=== PATIENT | male | born 1950 | race Caucasian/White ===

== ENCOUNTER 2019-02-03 17:25 | Observation (INO) | payer MEDICARE, BC ==
[2019-02-03] MEDS ORDERED: Sodium Chloride 0.9% 10 ML Syringe FLUSH PRN (17:31)
[2019-02-03] MEDS ORDERED: EPINEPHrine 1:10,000 1 MG/10 ML Syringe IVPUSH PRN (17:56)
[2019-02-03] MEDS ORDERED: Nitroglycerin 0.4 MG Tab.SL SL PRN (17:56)
[2019-02-03] MEDS ORDERED: Lidocaine 2% 100 MG/5 ML Syringe IVPUSH PRN (17:56)
[2019-02-03] MEDS ORDERED: Atropine 0.1 MG/ML 10 ML Syringe IVPUSH PRN (17:56)
[2019-02-03] MEDS ORDERED: Sodium Chloride 0.45% 1,000 ML IV ONE (18:00)
[2019-02-03] MEDS ORDERED: Sodium Chloride 0.45% 1,000 ML IV SCH (19:30)
[2019-02-03] MEDS ORDERED: metFORMIN 500 MG Tab PO SCH (20:00)
[2019-02-03] MEDS ORDERED: Ondansetron 4 MG/2 ML SDV IVPUSH PRN (20:11)
[2019-02-03] MEDS ORDERED: Ibuprofen 400 MG Tab PO PRN (20:12)
[2019-02-03] MEDS: Fluticasone Propionate Nasal Spray 16 GM Bottle NASBOTH SCH (20:49)
[2019-02-04 08:18] LABS: CHLORIDE,CL 94 mmol/L (98-115); SODIUM,NA 132 mmol/L (136-145)
[2019-02-04] MEDS ORDERED: Iopamidol 755 Mg/ML 75 ML Bottle IVPUSH ONE (09:09)
[2019-02-04] MEDS ORDERED: Sodium Chloride 0.9% 50 ML IV SCH (09:15)
--- NOTE | 2019-02-04 10:10 | CT ---
[id number] CT/CT Abdomen W IV EXAM: ABDOMEN CT WITH CONTRAST INDICATION: ELEVATED LIVER FUNCTION TESTS. COMPARISON: February 22, 2016. DISCUSSION: A 19 mm enhancing slightly exophytic mass is suggested in the upper pole the left kidney. This is somewhat difficult to differentiate from the adjacent normal parenchyma, however, and abdomen MRI with and without contrast is suggested to evaluate for renal cell carcinoma. The liver is normal in appearance, but there are mildly prominent vessels in the upper abdomen and mild splenomegaly at 14.7 cm suggesting potential underlying portal hypertension. Cholelithiasis without CT evidence of acute cholecystitis. On the right there is a 58 mm partially exophytic right renal cyst. There are couple of other small scattered bilateral renal cysts. Atherosclerotic plaque is seen in the aorta and its major branches. Small hiatus hernia and a small fat-containing umbilical hernia. Degenerative changes in the spine. The osseous structures are otherwise unremarkable. IMPRESSION: 1. The liver is normal in appearance, but there is evidence of potential portal hypertension with upper abdominal collateral vessels and mild splenomegaly. 2. Cholelithiasis without CT evidence of acute cholecystitis. 3. Possible 19 mm solid upper pole left renal mass. Abdomen MRI with and without contrast is suggested for further evaluation. Enmanuel Montenegro MD 02/04/19 1009 Thank you for allowing us to participate in the care of your patient.
[2019-02-04] MEDS: Losartan 50 MG Tab PO SCH (10:11)
[2019-02-04] MEDS: Allopurinol 100 MG Tab PO SCH (10:12)
[2019-02-04] MEDS: amLODIPine 5 MG Tab PO SCH (10:12)
[2019-02-04] MEDS: Fluticasone Propionate Nasal Spray 16 GM Bottle NASBOTH SCH ×2 (10:12→22:25)
--- NOTE | 2019-02-04 10:36 | PCM.HP ---
H&P History of Present Illness - General Date of Service: 02/04/19 Admit Problem/Dx: Admission Diagnosis/Problem Admission Diagnosis/Problem Tachycardia Source of Information: Patient, Old Records - Related Data Allergies/Adverse Reactions: Allergies Allergy/AdvReac Type Severity Reaction Status Date / Time No Known Allergies Allergy Verified 02/03/19 17:38 Home Medications: Home Meds Allopurinol [Zyloprim] 100 mg PO DAILY 02/03/19 [History] Fluticasone Propionate [Flonase] 1 spray NS BID 02/03/19 [History] Losartan [Cozaar] 100 mg PO DAILY 02/03/19 [History] Montelukast [Singulair] 10 mg PO BEDTIME 02/03/19 [History] Omeprazole Magnesium [Prilosec Otc] 20 mg PO DAILY 02/03/19 [History] Rosuvastatin Calcium [Crestor] 40 mg PO DAILY 02/03/19 [History] SitaGLIPtin [Januvia] 50 mg PO DAILY 02/03/19 [History] amLODIPine [Norvasc] 5 mg PO DAILY 02/03/19 [History] metFORMIN HCl [Glucophage] 1,000 mg PO BID 02/03/19 [History] hydroCHLOROthiazide [Hydrochlorothiazide] 25 mg PO DAILY 02/04/19 [History] Past Medical History Cardiovascular History: Reports: High Cholesterol, Hypertension Respiratory History: Reports: Asthma Gastrointestinal History: Reports: GERD Endocrine/Metabolic History: Reports: Diabetes, Type II Hematologic History: Reports: Other (See Below) Other Hematologic History: current Vt D deficient Oncologic (Cancer) History: Reports: Leukemia, Other (See Below) Other Oncologic History: Chronic Lymphatic Leukemia - Past Surgical History Musculoskeletal Surgical History: Reports: Knee Replacement Other Musculoskeletal Surgeries/Procedures:: R Social & Family History - Tobacco Use Smoking Status *Q: Former Smoker Used Tobacco, but Quit: Yes Month/Year Tobacco Last Used: 1994 - Caffeine Use Caffeine Use: Reports: Coffee H&P Review of Systems - Review of Systems: Review Of Systems: See Below General: Denies: Fever, Night Sweats, Diaphoresis HEENT: Reports: No Symptoms Pulmonary: Reports: No Symptoms Cardiovascular: Reports: No Symptoms Gastrointestinal: Reports: Diarrhea, Nausea. Denies: Abdominal Pain, Bloody Stool, Difficulty Swallowing Genitourinary: Reports: No Symptoms Musculoskeletal: Reports: No Symptoms Skin: Denies: Rash Psychiatric: Reports: No Symptoms Neurological: Reports: No Symptoms Hematologic/Lymphatic: Reports: Other Immunologic: Reports: No Symptoms Exam - Exam Exam: See Below - Vital Signs Vital Signs: Last Vital Signs Temp 98.3 F 02/04/19 06:24 Pulse 81 02/04/19 06:24 Resp 18 02/04/19 06:24 BP 137/82 02/04/19 10:12 Pulse Ox 93 L 02/04/19 06:24 Weight: 217 lb 11.2 oz - Exam Quality Assessment: No: Supplemental Oxygen, DVT Prophylaxis General: Alert, Oriented, Cooperative. No: Mild Distress HEENT: Hearing Intact, Pupils Reactive, Other (Dry mucous membranes) Neck: Supple, Trachea Midline, 2 Lungs: Clear to Auscultation, Normal Respiratory Effort Cardiovascular: Regular Rate, Regular Rhythm GI/Abdominal Exam: Normal Bowel Sounds, Soft, No Distention. No: Mass, Hepatomegaly (Male) Exam: No: Inguinal Lymphadenopathy Rectal (Males) Exam: Deferred Back Exam: No: CVA Tenderness (L), CVA Tenderness (R) Extremities: No Pedal Edema Peripheral Pulses: 2+: Radial (R), Femoral (L) Skin: Dry Neurological: Cranial Nerves Intact, Reflexes Equal Bilateral Neuro Extensive - Mental Status: Alert, Oriented x3, Normal Mood/Affect, Normal Cognition Neuro Extensive - Motor, Sensory, Reflexes: CN II-XII Intact, Normal Gait, Normal Reflexes Psychiatric: Alert, Normal Affect, Normal Mood - Patient Data Lab Results Last 24 hrs: Laboratory Results - last 24 hr 02/03/19 02/04/19 02/04/19 Range/Units 17:48 07:22 07:22 WBC 30.07 H* (5.00-10.00) 10^3/uL RBC 5.01 (4.50-6.00) 10^6/uL Hgb 14.3 (13.0-17.0) g/dL Hct 41.9 (40.0-52.0) % MCV 83.6 (82.0-92.0) fL MCH 28.5 (27.0-31.0) pg MCHC 34.1 (32.0-36.0) g/dL RDW 16.4 H (11.5-14.5) % Plt Count 113 L (150-400) 10^3/uL MPV 9.9 (7.4-10.4) fL Add Manual Diff Yes Neutrophils % (Manual) 29 L (50-70) % Lymphocytes % (Manual) 64 H (20-40) % Monocytes % (Manual) 7 (2-8) % Absolute Neutrophils 8.7203 Lymphocytes # (Manual) 19.2448 Monocytes # (Manual) 2.1049 Smudge Cells Moderate WBC Morphology Comment See note Sodium 132 L (136-145) mmol/L Potassium 3.7 (3.3-5.3) mmol/L Chloride 94 L (98-115) mmol/L Carbon Dioxide 31.7 (21.0-32.0) mmol/L Anion Gap 10.0 (5-15) mmol/L BUN 15 (6-25) mg/dL Creatinine 0.92 (0.51-1.17) mg/dL Est Cr Clr Drug Dosing 86.69 mL/min Estimated GFR (MDRD) > 60 mL/min Glucose 205 H (75 - 99) mg/dL Calcium 9.0 (8.7-10.3) mg/dL Total Bilirubin (0.2-1.0) mg/dL Direct Bilirubin (0.0-0.2) mg/dL Indirect Bilirubin mg/dL AST (15-37) U/L ALT (12-78) U/L Alkaline Phosphatase (46-116) IU/L Troponin I 0.05 0.05 (0.00-0.070) ng/mL Total Protein (6.4-8.2) g/dL Albumin (3.00-4.80) g/dL Globulin Albumin/Globulin Ratio 02/04/ Range/Units 07:22 WBC (5.00-10.00) 10^3/uL RBC (4.50-6.00) 10^6/uL Hgb (13.0-17.0) g/dL Hct (40.0-52.0) % MCV (82.0-92.0) fL MCH (27.0-31.0) pg MCHC (32.0-36.0) g/dL RDW (11.5-14.5) % Plt Count (150-400) 10^3/uL MPV (7.4-10.4) fL Add Manual Diff Neutrophils % (Manual) (50-70) % Lymphocytes % (Manual) (20-40) % Monocytes % (Manual) (2-8) % Absolute Neutrophils Lymphocytes # (Manual) Monocytes # (Manual) Smudge Cells WBC Morphology Comment Sodium (136-145) mmol/L Potassium (3.3-5.3) mmol/L Chloride (98-115) mmol/L Carbon Dioxide (21.0-32.0) mmol/L Anion Gap (5-15) mmol/L BUN (6-25) mg/dL Creatinine (0.51-1.17) mg/dL Est Cr Clr Drug Dosing mL/min Estimated GFR (MDRD) mL/min Glucose (75 - 99) mg/dL Calcium (8.7-10.3) mg/dL Total Bilirubin 1.6 H (0.2-1.0) mg/dL Direct Bilirubin 0.5 H (0.0-0.2) mg/dL Indirect Bilirubin 1.1 mg/dL AST 137 H (15-37) U/L ALT 325 H (12-78) U/L Alkaline Phosphatase 221 H (46-116) IU/L Troponin I (0.00-0.070) ng/mL Total Protein 6.5 (6.4-8.2) g/dL Albumin 2.96 L (3.00-4.80) g/dL Globulin 3.54 Albumin/Globulin Ratio 0.83 Result Diagrams: 02/04/19 07:22 02/05/19 07:10 Problem List Initiated/Reviewed/Updated: Yes Orders Last 24hrs: Active Orders 24 hr Category Date Time Status Patient Status [ADT] Routine ADT 02/03/19 17:31 Active Blood Glucose Check, Bedside [RC] BIDMEALS Care 02/03/19 17:54 Active Cardiac Monitoring [RC] 0300,0700,1100,1500,1900,2300 Care 02/03/19 17:34 Active EKG Documentation Completion [RC] ASDIRECTED Care 02/04/19 07:00 Active Intake and Output [RC] 1400,2200,0600 Care 02/03/19 17:34 Active Oxygen Therapy [RC] PRN Care 02/03/19 17:31 Active Up ad Azra [RC] ASDIRECTED Care 02/03/19 17:31 Active VTE/DVT Education [RC] PER UNIT ROUTINE Care 02/03/19 17:54 Active Vital Signs [RC] 0300,0700,1100,1500,1900,2300 Care 02/03/19 17:54 Active [employer] Diet [DIET] Diet 02/03/19 Dinner Active NPO After Midnight [Nothing per Oral After Midnight Diet 02/04/19 Breakfast Active Diet] [DIET] HEPATITIS PANEL (4) [REF] Routine Lab 02/04/19 07:22 Received Allopurinol [Zyloprim] Med 02/04/19 09:00 Active 100 mg PO DAILY Atropine [Atropine 0.1 MG/ML] Med 02/03/19 17:56 Active See Dose Instructions IVPUSH ASDIRECTED PRN EPINEPHrine [EPINEPHrine 1:10,000] Med 02/03/19 17:56 Active 1 mg IVPUSH ASDIRECTED PRN Fluticasone Propionate [Flonase] Med 02/03/19 21:00 Active 0 gm NASBOTH BID Ibuprofen [Motrin] Med 02/03/19 20:12 Active 400 mg PO Q8H PRN Lidocaine 2% [Xylocaine 2%] Med 02/03/19 17:56 Active See Dose Instructions IVPUSH ASDIRECTED PRN Losartan [Cozaar] Med 02/04/19 09:00 Active 100 mg PO DAILY Nitroglycerin [Nitrostat] Med 02/03/19 17:56 Active 0.4 mg SL ASDIRECTED PRN Ondansetron [Zofran] Med 02/03/19 20:11 Active 4 mg IVPUSH Q8H PRN Sodium Chloride 0.45% 1,000 ml Med 02/03/19 19:30 Active IV ASDIRECTED Sodium Chloride 0.9% [Normal Saline] 50 ml Med 02/04/19 09:15 Active IV ASDIRECTED Sodium Chloride 0.9% [Saline Flush] Med 02/03/19 17:31 Active 10 ml FLUSH Q8HR PRN amLODIPine [Norvasc] Med 02/04/19 09:00 Active 5 mg PO DAILY metFORMIN [Glucophage] Med 02/03/19 20:00 Hold 1,000 mg PO BIDMEALS Saline Lock Insert [OM.PC] Routine Oth 02/03/19 17:31 Ordered Resuscitation Status Routine Resus Stat 02/03/19 17:31 Ordered EKG 12 Lead [EK] AM Ther 02/04/19 05:11 Ordered Medication Orders Allopurinol (Zyloprim) 100 mg PO DAILY [facility] Last Admin: 02/04/19 10:12 Dose: 100 mg Amlodipine Besylate (Norvasc) 5 mg PO DAILY [facility] Last Admin: 02/04/19 10:12 Dose: 5 mg Atropine Sulfate (Atropine 0.1 Mg/Ml) 0 mg IVPUSH ASDIRECTED PRN PRN Reason: Heart. Epinephrine HCl (Epinephrine 1:10,000) 1 mg IVPUSH ASDIRECTED PRN PRN Reason: Heart. Fluticasone Propionate (Flonase) 0 gm NASBOTH BID [facility] Last Admin: 02/04/19 10:12 Dose: Not Given Admin: 02/03/19 20:49 Dose: Not Given Sodium Chloride (Sodium Chloride 0.45%) 1,000 mls @ 50 mls/hr IV ASDIRECTED [facility] Stop: 02/04/19 15:29 Sodium Chloride (Normal Saline) 50 mls @ 200 mls/min IV ASDIRECTED [facility] Ibuprofen (Motrin) 400 mg PO Q8H PRN PRN Reason: Pain Last Admin: 02/03/19 20:46 Dose: 400 mg Lidocaine HCl (Xylocaine 2%) 0 mg IVPUSH ASDIRECTED PRN PRN Reason: Heart. Losartan Potassium (Cozaar) 100 mg PO DAILY [facility] Last Admin: 02/04/19 10:11 Dose: 100 mg Metformin HCl (Glucophage) 1,000 mg PO BIDMEALS [facility] Last Admin: 02/03/19 20:45 Dose: Nitroglycerin (Nitrostat) 0.4 mg SL ASDIRECTED PRN PRN Reason: Heart. Ondansetron HCl (Zofran) 4 mg IVPUSH Q8H PRN PRN Reason: Nausea/Vomiting Last Admin: 02/03/19 20:46 Dose: 4 mg Sodium Chloride (Saline Flush) 10 ml FLUSH Q8HR PRN PRN Reason: keep vein open Assessment/Plan Comment:: history of present illness 68-year-old gentleman was admitted outpatient [facility] by Dr. Tobar due to dehydration and elevated liver enzymes. Patient states he has been in the heat and outside working however does admit to severe heart burn the past Wed after taking his vit d tab, took some OTC med then vomited--which seemed to help but lingered, slept quite a bit, fatigue. His liver indices were high at clinic. Does not drink water due to gagging him. Some trace urine. primary hospital problems Dehydration, Elevated transaminase Question Renal mass Rising PSA levels, Chronic stable problems CLL with progressive lymphocytosis dx 2016 HLD T2DM HTN Obesity Restrictive lung dz Peripheral polyneuropathy Osteoarthritis bilateral knees Plan today: --Hydration IV, inpatient status, repeat liver enzymes including indirect bili. --MRI next week to assess renal mass, suggest MAC 2/2 severe claustopobia. --Remove tele status
[2019-02-04] MEDS: Sodium Chloride 0.9% 1,000 ML IV SCH ×2 (14:18→22:30)
[2019-02-04] MEDS: Montelukast 10 MG Tab PO SCH (22:26)
[2019-02-05] MEDS: Sodium Chloride 0.9% 1,000 ML IV SCH ×3 (06:38→23:52)
[2019-02-05 08:14] LABS: CHLORIDE,CL 98 mmol/L (98-115); SODIUM,NA 133 mmol/L (136-145)
[2019-02-05] MEDS: Allopurinol 100 MG Tab PO SCH (08:24)
[2019-02-05] MEDS: Omeprazole 20 MG Cap.CR PO SCH (08:24)
[2019-02-05] MEDS: amLODIPine 5 MG Tab PO SCH (08:24)
[2019-02-05] MEDS: Fluticasone Propionate Nasal Spray 16 GM Bottle NASBOTH SCH ×2 (08:25→20:16)
[2019-02-05] MEDS: Losartan 50 MG Tab PO SCH (08:25)
[2019-02-05] MEDS ORDERED: Rosuvastatin 10 MG Tab PO SCH (09:00)
--- NOTE | 2019-02-05 13:46 | PCM.PN ---
- General Info Date of Service: 02/05/19 Admission Dx/Problem (Free Text): Admission Diagnosis/Problem Admission Diagnosis/Problem Elevated hepatic function, dehydration Functional Status: Reports: Tolerating Diet, Ambulating - Review of Systems General: Reports: Fatigue. Denies: Fever, Weakness, Chills HEENT: Reports: No Symptoms Pulmonary: Denies: Shortness of Breath, Cough, Sputum, Wheezing Cardiovascular: Denies: Chest Pain, Palpitations, Dyspnea on Exertion, Orthopnea , Edema, Lightheadedness Gastrointestinal: Reports: No Symptoms, Abdominal Pain Genitourinary: Reports: No Symptoms Musculoskeletal: Reports: No Symptoms Skin: Reports: No Symptoms Neurological: Reports: No Symptoms Psychiatric: Reports: No Symptoms Systems Review Comment:: CLL - Patient Data Vitals - Most Recent: Last Vital Signs Temp 97.0 F 02/05/19 11:00 Pulse 71 02/05/19 11:00 Resp 18 02/05/19 11:00 BP 133/82 02/05/19 11:00 Pulse Ox 94 L 02/05/19 11:00 Weight - Most Recent: 217 lb 11.2 oz I&O - Last 24 Hours: Intake & Output 02/04/19 02/05/19 02/05/19 22:59 06:59 14:59 Intake Total 1397 979 Output Total 825 400 Balance 572 579 Lab Results Last 24 Hours: Laboratory Results - last 24 hr 02/04/19 02/05/19 02/05/19 Range/Units 17:52 06:30 07:10 Sodium 133 L (136-145) mmol/L Potassium 3.4 (3.3-5.3) mmol/L Chloride 98 (98-115) mmol/L Carbon Dioxide 30.4 (21.0-32.0) mmol/L Anion Gap 8.0 (5-15) mmol/L BUN 16 (6-25) mg/dL Creatinine 0.88 (0.51-1.17) mg/dL Est Cr Clr Drug Dosing 90.63 mL/min Estimated GFR (MDRD) > 60 mL/min Glucose 225 H (75 - 99) mg/dL POC Glucose 264 H 221 H (74-106) mg/dl Calcium 8.5 L (8.7-10.3) mg/dL Total Bilirubin 1.0 (0.2-1.0) mg/dL AST 73 H (15-37) U/L ALT 236 H (12-78) U/L Alkaline Phosphatase 226 H (46-116) IU/L Total Protein 5.9 L (6.4-8.2) g/dL Albumin 2.66 L (3.00-4.80) g/dL Med Orders - Current: Current Medications Allopurinol (Zyloprim) 100 mg PO DAILY [facility] Last Admin: 02/05/19 08:24 Dose: 100 mg Amlodipine Besylate (Norvasc) 5 mg PO DAILY [facility] Last Admin: 02/05/19 08:24 Dose: 5 mg Atropine Sulfate (Atropine 0.1 Mg/Ml) 0 mg IVPUSH ASDIRECTED PRN PRN Reason: Heart. Epinephrine HCl (Epinephrine 1:10,000) 1 mg IVPUSH ASDIRECTED PRN PRN Reason: Heart. Fluticasone Propionate (Flonase) 0 gm NASBOTH BID [facility] Last Admin: 02/05/19 08:25 Dose: Not Given Sodium Chloride (Normal Saline) 50 mls @ 200 mls/min IV ASDIRECTED [facility] Sodium Chloride (Normal Saline) 1,000 mls @ 125 mls/hr IV ASDIRECTED [facility] Last Admin: 02/05/19 06:38 Dose: 125 mls/hr Ibuprofen (Motrin) 400 mg PO Q8H PRN PRN Reason: Pain Last Admin: 02/03/19 20:46 Dose: 400 mg Lidocaine HCl (Xylocaine 2%) 0 mg IVPUSH ASDIRECTED PRN PRN Reason: Heart. Losartan Potassium (Cozaar) 100 mg PO DAILY [facility] Last Admin: 02/05/19 08:25 Dose: 100 mg Metformin HCl (Glucophage) 1,000 mg PO BIDMEALS [facility] Last Admin: 02/03/19 20:45 Dose: Not Given Montelukast Sodium (Singulair) 10 mg PO BEDTIME [facility] Last Admin: 02/04/19 22:26 Dose: Not Given Nitroglycerin (Nitrostat) 0.4 mg SL ASDIRECTED PRN PRN Reason: Heart. Omeprazole (Omeprazole) 20 mg PO DAILY [facility] Last Admin: 02/05/19 08:24 Dose: 20 mg Ondansetron HCl (Zofran) 4 mg IVPUSH Q8H PRN PRN Reason: Nausea/Vomiting Last Admin: 02/03/19 20:46 Dose: 4 mg Rosuvastatin Calcium (Crestor) 40 mg PO DAILY [facility] Last Admin: 02/05/19 13:45 Dose: Not Given Sitagliptin Phosphate (Januvia) 50 mg PO DAILY [facility] Last Admin: 02/05/19 08:24 Dose: 50 mg Sodium Chloride (Saline Flush) 10 ml FLUSH Q8HR PRN PRN Reason: keep vein open Discontinued Medications Sodium Chloride (Sodium Chloride 0.45%) 1,000 mls @ 50 mls/hr IV ASDIRECTED ONE Stop: 02/04/19 13:59 Last Admin: 02/03/19 18:30 Dose: 50 mls/hr Sodium Chloride (Sodium Chloride 0.45%) 1,000 mls @ 50 mls/hr IV ASDIRECTED [facility] Stop: 02/04/19 15:29 Iopamidol (Isovue-370 (76%)) 75 ml IVPUSH ONETIME ONE Stop: 02/04/19 09:10 Last Admin: 02/05/19 04:36 Dose: Not Given - Exam Quality Assessment: DVT Prophylaxis. No: Supplemental Oxygen General: Alert, Oriented Neck: Supple. No: No JVD Lungs: Clear to Auscultation, Normal Respiratory Effort Cardiovascular: Regular Rate, Regular Rhythm GI/Abdominal Exam: Normal Bowel Sounds, Soft, Non-Tender, No Organomegaly, No Distention Back Exam: Normal Inspection Extremities: Normal Inspection Skin: Warm, Dry, Intact Neurological: No New Focal Deficit Psy/Mental Status: Alert, Normal Affect, Normal Mood - Problem List Review Problem List Initiated/Reviewed/Updated: Yes - My Orders Last 24 Hours: My Active Orders 02/06/19 05:11 BASIC METABOLIC PANEL,BMP [CHEM] AM CBC WITH AUTO DIFF [HEME] AM HEPATIC FUNCTION PANEL,HFP [CHEM] AM - Plan Plan:: history of present illness 68-year-old gentleman was admitted outpatient [facility] by Dr. Tobar on 02/03 due to dehydration and weakness. Patient states he has been in the heat and outside working. He states that on Thursday he did note severe heartburn after taking his vitamin D tablet. He took OTC medication for heartburn which did help. He denies any other recent illness or associated symptoms. He does report decreased water intake at home as he gags on water. He has no concerns with other fluid intake including flavored water. Initial work-up done revealed elevated liver enzymes. Patient denies regular alcohol use. Denies hepatotoxic medication use. Pertinent work-up: AST-294 AST-408 Alkaline phosphatase-[address] of the abdomen pelvis was done showing normal appearing liver, with evidence of potential protal HTN with uper abdominal collateral vessels and mild splenomegaly. Cholelithiasis without evidence of acute cholecystitis. Possible 19mm solid upper pole left renal mass. recommendation for MRI with and without contrast for further evaluation. primary hospital problems #Dehydration- Improving with IV rehydration. Encourage increase PO intake. #Elevated transaminase- ALT>AST elevation. Hepatitis panel pending. GGT done and pending. Liver tests have overall improved today. AST-71 (normal), ALT-236, Total bilirubin 1.0 (normal), Alk phosphatase increased slightly to 226. Recheck BMP and Hepatic panel tomorrow. #Question Renal mass- as noted on CT. recommendation for follow-up imaging. #Rising PSA levels- has follow-up with urology scheduled for thursday02/08/19. Chronic stable problems #CLL with progressive lymphocytosis since 2014. He is followed by oncology (Dr. Chavis) #HLD- On Crestor. Currently on hold due to elevated hepatic function #T2DM- Monitor BS. Metformin on hold 48 post contrast. Resume Sitagliptin. #HTN- on Losartan 100mg, HCTZ 25mg, and Amlodipine 5mg. #Gout- on allopurinol. #Vitamin D deficiency- on supplemental Vitamin D. #Obesity #Restrictive lung dz- Albuterol PRN #Peripheral polyneuropathy #Osteoarthritis bilateral knees #FEN- Continue with IV hydration. Improving appetite. ADA diet with BS checks. Encourage increased PO fluid intake. #Disposition- up ambulating in the halls today. continue inpatient status today. Consider discharge tomorrow with follow-up for lab monitoring. Patient will need upper endoscopy on an outpatient basis. Also will need MRI with plan for open MRI given severe claustrophobia.
[2019-02-05] MEDS: Montelukast 10 MG Tab PO SCH (20:16)
[2019-02-06] MEDS ORDERED: Iopamidol 755 Mg/ML 75 ML Bottle IVPUSH ONE (03:19)
[2019-02-06 08:38] LABS: ANION GAP 9.3 mmol/L (5-15); CHLORIDE,CL 101 mmol/L (98-115); SODIUM,NA 137 mmol/L (136-145)
[2019-02-06] MEDS: Losartan 50 MG Tab PO SCH (10:51)
[2019-02-06] MEDS: amLODIPine 5 MG Tab PO SCH (10:52)
[2019-02-06] MEDS: Allopurinol 100 MG Tab PO SCH (10:52)
[2019-02-06] MEDS: Omeprazole 20 MG Cap.CR PO SCH (10:53)
[2019-02-06] MEDS: Fluticasone Propionate Nasal Spray 16 GM Bottle NASBOTH SCH (10:54)
--- NOTE | 2019-02-06 14:16 | PCM.DCSUM1 ---
Discharge Summary - Hospital Course HPI Initial Comments: history of present illness 68-year-old gentleman was admitted outpatient [facility] by Dr. Tobar on 02/03 due to dehydration and weakness. Patient states he has been in the heat and outside working. He states that on Thursday he did note severe heartburn after taking his vitamin D tablet. He took OTC medication for heartburn which did help. However he continued to not significant weakness. He denies any other recent illness or associated symptoms. He does report decreased water intake at home as he gags on water. He has no concerns with other fluid intake including flavored water. Initial work-up done revealed elevated liver enzymes. Patient denies regular alcohol use. Denies hepatotoxic medication use. Pertinent work-up: AST-294 AST-408 Alkaline phosphatase-[address] of the abdomen pelvis was done showing normal appearing liver, with evidence of potential protal HTN with uper abdominal collateral vessels and mild splenomegaly. Cholelithiasis without evidence of acute cholecystitis. Possible 19mm solid upper pole left renal mass. recommendation for MRI with and without contrast for further evaluation. Hospitalization Course: Overall uneventful. Patient received IV rehydration therapy and did well in this regard. He was asymptomatic and denied any symptoms of abdominal pain, nausea, vomiting, or diarrhea. weakness improved and patient remained normotensive. Hepatitis panel was negative. GGTP level is still pending. Patient denies alcohol use. Denies hepatotoxic medication use. Liver function tests trended down during stay. There was a mild increase in alkaline phosphotase level primary hospital problems #Dehydration- Improved with IV rehydration #Elevated transaminase- Hepatitis panel negative GGTP done and pending. Liver tests have overall improved today. AST-56 (normal), ALT-190, Bilirubin levels normal, Alk phosphatase increased slightly to 257. #Question Renal mass- as noted on CT. recommendation for follow-up imaging. #Rising PSA levels- has follow-up with urology scheduled for Thursday02/08/19. Chronic stable problems #CLL with progressive lymphocytosis since 2014. He is followed by oncology (Dr. Chavis) #HLD- On Crestor. Currently on hold due to elevated hepatic function #T2DM- Monitor BS. Metformin on hold 48 post contrast. Resume Sitagliptin. #HTN- on Losartan 100mg, HCTZ 25mg, and Amlodipine 5mg. #Gout- on allopurinol. #Vitamin D deficiency- on supplemental Vitamin D. #Obesity #Restrictive lung dz- Albuterol PRN #Peripheral polyneuropathy #Osteoarthritis bilateral knees #Disposition- Continued down trending of hepatic enzymes. Mild increase in alkaline phosphatase. -Will discharge patient to home with close outpatient follow-up for laboratory monitoring. No alcohol use. Continue to Hold Crestor. Avoid Tylenol. -Outpatient MRI for follow-up of renal mass -Outpatient upper endoscopy. - Discharge Data Discharge Date: 02/06/19 Discharge Disposition: Home, Self-Care 01 Condition: Good - Discharge Diagnosis/Problem(s) (1) Elevated liver enzymes SNOMED Code(s): 951837122 ICD Code: R74.8 - ABNORMAL LEVELS OF OTHER SERUM ENZYMES Status: Acute (2) Renal mass SNOMED Code(s): 913691395 ICD Code: N28.89 - OTHER SPECIFIED DISORDERS OF KIDNEY AND URETER Status: Acute (3) Hepatitis SNOMED Code(s): 804484330 ICD Code: K75.9 - INFLAMMATORY LIVER DISEASE, UNSPECIFIED Status: Acute (4) Dehydration SNOMED Code(s): 93587080 ICD Code: E86.0 - DEHYDRATION Status: Acute - Patient Instructions Diet: Usual Diet as Tolerated, No Alcoholic Beverages Activity: As Tolerated Driving: May Drive Today Showering/Bathing: May Shower Notify Provider of: Fever, Increased Pain, Nausea and/or Vomiting - Discharge Plan *PRESCRIPTION DRUG MONITORING PROGRAM REVIEWED*: Not Applicable *COPY OF PRESCRIPTION DRUG MONITORING REPORT IN PATIENT PORSHA: Not Applicable Home Medications: Home Meds Fluticasone Propionate [Flonase] 1 spray NS BID 02/03/19 [History] Losartan [Cozaar] 100 mg PO DAILY 02/03/19 [History] Montelukast [Singulair] 10 mg PO BEDTIME 02/03/19 [History] Omeprazole Magnesium [Prilosec Otc] 20 mg PO DAILY 02/03/19 [History] SitaGLIPtin [Januvia] 50 mg PO DAILY 02/03/19 [History] amLODIPine [Norvasc] 5 mg PO DAILY 02/03/19 [History] metFORMIN HCl [Glucophage] 1,000 mg PO BID 02/03/19 [History] hydroCHLOROthiazide [Hydrochlorothiazide] 25 mg PO DAILY 02/04/19 [History] Fluticasone Propionate [Flonase] 0 gm NASBOTH BID bottle 02/06/19 [Rx] Oxygen Therapy Mode: Room Air Referrals: Prabhu Lord MD [Physician] - (Call clinic Thursday to schedule follow-up with Dr. Paula Lord. ) - Discharge Summary/Plan Comment DC Time >30 min.: Yes - General Info Date of Service: 02/06/19 - Patient Data Vitals - Most Recent: Last Vital Signs Temp 98.1 F 02/06/19 06:58 Pulse 78 02/06/19 06:58 Resp 16 02/06/19 06:58 BP 136/85 02/06/19 10:52 Pulse Ox 95 02/06/19 06:58 Weight - Most Recent: 217 lb 11.2 oz I&O - Last 24 hours: Intake & Output 02/05/19 02/06/19 02/06/19 22:59 06:59 14:59 Intake Total 1911 1050 Output Total 700 800 Balance 1211 250 Lab Results - Last 24 hrs: Laboratory Results - last 24 hr 02/04/19 02/05/19 02/06/19 Range/Units 07:22 17:57 07:05 WBC 24.62 H (5.00-10.00) 10^3/uL RBC 4.50 (4.50-6.00) 10^6/uL Hgb 12.6 L D (13.0-17.0) g/dL Hct 38.5 L (40.0-52.0) % MCV 85.6 (82.0-92.0) fL MCH 28.0 (27.0-31.0) pg MCHC 32.7 (32.0-36.0) g/dL RDW 16.3 H (11.5-14.5) % Plt Count 145 L (150-400) 10^3/uL MPV 10.7 H (7.4-10.4) fL Add Manual Diff Yes Neutrophils % (Manual) 26 L (50-70) % Band Neutrophils % 2 L (4-12) % Lymphocytes % (Manual) 66 H (20-40) % Monocytes % (Manual) 4 (2-8) % Eosinophils % (Manual) 2 (1-3) % Absolute Neutrophils 6.40 Band Neutrophils # 0.49 Lymphocytes # (Manual) 16.25 Monocytes # (Manual) 0.98 Eosinophils # (Manual) 0.49 Smudge Cells Moderate Sodium (136-145) mmol/L Potassium (3.3-5.3) mmol/L Chloride (98-115) mmol/L Carbon Dioxide (21.0-32.0) mmol/L Anion Gap (5-15) mmol/L BUN (6-25) mg/dL Creatinine (0.51-1.17) mg/dL Est Cr Clr Drug Dosing mL/min Estimated GFR (MDRD) mL/min Glucose (75 - 99) mg/dL POC Glucose 242 H (74-106) mg/dl Calcium (8.7-10.3) mg/dL Total Bilirubin (0.2-1.0) mg/dL Direct Bilirubin (0.0-0.2) mg/dL Indirect Bilirubin mg/dL AST (15-37) U/L ALT (12-78) U/L Alkaline Phosphatase (46-116) IU/L Total Protein (6.4-8.2) g/dL Albumin (3.00-4.80) g/dL Globulin Albumin/Globulin Ratio Hepatitis A IgM Ab Negative (Negative) Hep Bs Antigen Negative (Negative) Hep B Core IgM Ab Negative (Negative) Hepatitis C Antibody <0.1 (0.0-0.9) s/co ratio 02/06/19 02/06/19 Range/Units 07:05 07:37 WBC (5.00-10.00) 10^3/uL RBC (4.50-6.00) 10^6/uL Hgb (13.0-17.0) g/dL Hct (40.0-52.0) % MCV (82.0-92.0) fL MCH (27.0-31.0) pg MCHC (32.0-36.0) g/dL RDW (11.5-14.5) % Plt Count (150-400) 10^3/uL MPV (7.4-10.4) fL Add Manual Diff Neutrophils % (Manual) (50-70) % Band Neutrophils % (4-12) % Lymphocytes % (Manual) (20-40) % Monocytes % (Manual) (2-8) % Eosinophils % (Manual) (1-3) % Absolute Neutrophils Band Neutrophils # Lymphocytes # (Manual) Monocytes # (Manual) Eosinophils # (Manual) Smudge Cells Sodium 137 (136-145) mmol/L Potassium 3.8 (3.3-5.3) mmol/L Chloride 101 (98-115) mmol/L Carbon Dioxide 30.5 (21.0-32.0) mmol/L Anion Gap 9.3 (5-15) mmol/L BUN 14 (6-25) mg/dL Creatinine 0.90 (0.51-1.17) mg/dL Est Cr Clr Drug Dosing 88.62 mL/min Estimated GFR (MDRD) > 60 mL/min Glucose 216 H (75 - 99) mg/dL POC Glucose 233 H (74-106) mg/dl Calcium 8.7 (8.7-10.3) mg/dL Total Bilirubin 0.8 (0.2-1.0) mg/dL Direct Bilirubin 0.2 (0.0-0.2) mg/dL Indirect Bilirubin 0.6 mg/dL AST 56 H (15-37) U/L ALT 190 H (12-78) U/L Alkaline Phosphatase 257 H (46-116) IU/L Total Protein 5.8 L (6.4-8.2) g/dL Albumin 2.63 L (3.00-4.80) g/dL Globulin 3.17 Albumin/Globulin Ratio 0.82 Hepatitis A IgM Ab (Negative) Hep Bs Antigen (Negative) Hep B Core IgM Ab (Negative) Hepatitis C Antibody (0.0-0.9) s/co ratio Med Orders - Current: Current Medications Allopurinol (Zyloprim) 100 mg PO DAILY REPLACED BY [facility] Last Admin: 02/06/19 10:52 Dose: 100 mg Amlodipine Besylate (Norvasc) 5 mg PO DAILY REPLACED BY [facility] Last Admin: 02/06/19 10:52 Dose: 5 mg Atropine Sulfate (Atropine 0.1 Mg/Ml) 0 mg IVPUSH ASDIRECTED PRN PRN Reason: Heart. Epinephrine HCl (Epinephrine 1:10,000) 1 mg IVPUSH ASDIRECTED PRN PRN Reason: Heart. Fluticasone Propionate (Flonase) 0 gm NASBOTH BID REPLACED BY [facility] Last Admin: 02/06/19 10:54 Dose: Not Given Sodium Chloride (Normal Saline) 50 mls @ 200 mls/min IV ASDIRECTED REPLACED BY [facility] Last Admin: 02/06/19 03:18 Dose: 200 mls/min Sodium Chloride (Normal Saline) 1,000 mls @ 125 mls/hr IV ASDIRECTED REPLACED BY [facility] Last Admin: 02/05/19 23:52 Dose: 125 mls/hr Ibuprofen (Motrin) 400 mg PO Q8H PRN PRN Reason: Pain Last Admin: 02/03/19 20:46 Dose: 400 mg Lidocaine HCl (Xylocaine 2%) 0 mg IVPUSH ASDIRECTED PRN PRN Reason: Heart. Losartan Potassium (Cozaar) 100 mg PO DAILY REPLACED BY [facility] Last Admin: 02/06/19 10:51 Dose: 100 mg Metformin HCl (Glucophage) 1,000 mg PO BIDMEALS REPLACED BY [facility] Montelukast Sodium (Singulair) 10 mg PO BEDTIME REPLACED BY [facility] Last Admin: 02/05/19 20:16 Dose: 10 mg Nitroglycerin (Nitrostat) 0.4 mg SL ASDIRECTED PRN PRN Reason: Heart. Omeprazole (Omeprazole) 20 mg PO DAILY REPLACED BY [facility] Last Admin: 02/06/19 10:53 Dose: 20 mg Ondansetron HCl (Zofran) 4 mg IVPUSH Q8H PRN PRN Reason: Nausea/Vomiting Last Admin: 02/03/19 20:46 Dose: 4 mg Rosuvastatin Calcium (Crestor) 40 mg PO DAILY REPLACED BY [facility] Last Admin: 02/05/19 13:45 Dose: Not Given Sitagliptin Phosphate (Januvia) 50 mg PO DAILY REPLACED BY [facility] Last Admin: 02/06/19 10:52 Dose: 50 mg Sodium Chloride (Saline Flush) 10 ml FLUSH Q8HR PRN PRN Reason: keep vein open Discontinued Medications Sodium Chloride (Sodium Chloride 0.45%) 1,000 mls @ 50 mls/hr IV ASDIRECTED ONE Stop: 02/04/19 13:59 Last Admin: 02/03/19 18:30 Dose: 50 mls/hr Sodium Chloride (Sodium Chloride 0.45%) 1,000 mls @ 50 mls/hr IV ASDIRECTED REPLACED BY [facility] Stop: 02/04/19 15:29 Iopamidol (Isovue-370 (76%)) 75 ml IVPUSH ONETIME ONE Stop: 02/04/19 09:10 Last Admin: 02/05/19 04:36 Dose: Not Given Iopamidol (Isovue-370 (76%)) 75 ml IVPUSH ONETIME ONE Stop: 02/06/19 03:20 Metformin HCl (Glucophage) 1,000 mg PO BIDMEALS REPLACED BY [facility] Last Admin: 02/03/19 20:45 Dose: Not Given
[2019-02-06] MEDS ORDERED: metFORMIN 500 MG Tab PO SCH (18:00)
== END 2019-02-06 14:00 | disposition home or self-care (01) ==
LOC: KA.MS 17:25 → INTOOBSV 17:25 → UNDOADMOB 17:25 → KA.MS 17:31
PROVIDERS: ADMIT Internal Medicine; ATTEND Internal Medicine
DX: R74.8 Abnormal levels of other serum enzymes (principal); E86.0 Dehydration; R97.20 Elevated prostate specific antigen [PSA]; R53.1 Weakness; I10 Essential (primary) hypertension; E11.42 Type 2 diabetes mellitus with diabetic polyneuropathy; E78.00 Pure hypercholesterolemia, unspecified; E79.0 Hyperuricemia without signs of inflammatory arthritis and tophaceous disease; C91.10 Chronic lymphocytic leukemia of B-cell type not having achieved remission; J98.4 Other disorders of lung; K80.20 Calculus of gallbladder without cholecystitis without obstruction; M17.12 Unilateral primary osteoarthritis, left knee; E66.9 Obesity, unspecified; Z68.29 Body mass index [BMI] 29.0-29.9, adult; Z87.891 Personal history of nicotine dependence; Z79.51 Long term (current) use of inhaled steroids; Z79.84 Long term (current) use of oral hypoglycemic drugs; Z79.899 Other long term (current) drug therapy
CPT/HCPCS: 36415; 74160; 80048; 80053; 80074; 80076; 82962; 82977; 84484; 85025; 93005; A9270; J2405; J7030; J7050; 96361; 96374; G0378

== ENCOUNTER 2019-05-14 15:46 | Emergency (ER) | payer MEDICARE, BC ==
--- NOTE | 2019-05-14 16:31 | EDM.PDOC ---
ED HPI GENERAL MEDICAL PROBLEM - General Stated Complaint: possible UTI Time Seen by Provider: 05/14/19 15:56 Source of Information: Reports: Patient, Significant Other History Limitations: Reports: No Limitations - History of Present Illness INITIAL COMMENTS - FREE TEXT/NARRATIVE: Patient presents with dysuria, dribbling and increased frequency that all started last night and are worse today. He has never had this before. He has known diabetes, CML (leukemia), and a presumed cancerous nodule on a kidney. He has been to [place] for the kidney nodule and they are monitoring that, he goes back again in July. His leukemia doctor is in [place]; his last WBC was 44 and he has been told that number will continue to increase but that so far they aren't at the treatment (presumably chemo) level yet. He sees Pedro Ross NP for PCP and saw him two days ago for his diabetes; Januvia was increased and yesterday he started Phentermine for weight loss to improve diabetes goals. He was told that the Phentermine would raise his BP and HR. - Related Data Allergies Allergy/AdvReac Type Severity Reaction Status Date / Time No Known Allergies Allergy Verified 05/14/19 16:11 Home Meds: Home Meds Losartan [Cozaar] 100 mg PO DAILY 02/03/19 [History] Montelukast [Singulair] 10 mg PO BEDTIME 02/03/19 [History] Omeprazole Magnesium [Prilosec Otc] 20 mg PO DAILY 02/03/19 [History] SitaGLIPtin [Januvia] 100 mg PO DAILY 02/03/19 [History] amLODIPine [Norvasc] 5 mg PO DAILY 02/03/19 [History] metFORMIN HCl [Glucophage] 1,000 mg PO BID 02/03/19 [History] hydroCHLOROthiazide [Hydrochlorothiazide] 25 mg PO DAILY 02/04/19 [History] Allopurinol [Zyloprim] 100 mg PO DAILY 05/14/19 [History] Cannabidiol (Cbd) Extract [CBD Oil] 0.5 tsp PO BEDTIME 05/14/19 [History] Cholecalciferol (Vitamin D3) [Vitamin D3] 2,000 unit PO DAILY 05/14/19 [History] Fluticasone Propionate [Flonase] 0 gm NASBOTH BID PRN 05/14/19 [History] Phentermine HCl 37.5 mg PO DAILY 05/14/19 [History] Rosuvastatin Calcium [Crestor] 40 mg PO DAILY 05/14/19 [History] Ubidecarenone [Co Q-10] 100 mg PO BID 05/14/19 [History] Past Medical History Cardiovascular History: Reports: High Cholesterol, Hypertension Respiratory History: Reports: Asthma Gastrointestinal History: Reports: GERD Endocrine/Metabolic History: Reports: Diabetes, Type II Hematologic History: Reports: Other (See Below) Other Hematologic History: current Vt D deficient Oncologic (Cancer) History: Reports: Leukemia, Other (See Below) Other Oncologic History: Chronic Lymphatic Leukemia - Past Surgical History Musculoskeletal Surgical History: Reports: Knee Replacement Other Musculoskeletal Surgeries/Procedures:: R Social & Family History - Caffeine Use Caffeine Use: Reports: Coffee ED ROS GENERAL - Review of Systems Review Of Systems: See Below Constitutional: Denies: Fever (but is 100.3 now in ER), Chills, Malaise, Weakness, Decreased Appetite HEENT: Reports: No Symptoms Respiratory: Denies: Shortness of Breath, Cough Cardiovascular: Denies: Chest Pain, Lightheadedness, Syncope Endocrine: Reports: High Glucose GI/Abdominal: Denies: Abdominal Pain, Diarrhea, Vomiting : Reports: Dysuria, Frequency. Denies: Flank Pain Musculoskeletal: Reports: No Symptoms Skin: Reports: No Symptoms Neurological: Denies: Confusion, Dizziness, Headache, Seizure, Syncope, Trouble Speaking, Difficulty Walking Psychiatric: Denies: Agitation, Anxiety ED EXAM, RENAL/ - Physical Exam Exam: See Below Exam Limited By: No Limitations General Appearance: Alert, WD/WN, No Apparent Distress Ears: Normal External Exam, Hearing Grossly Normal Nose: Normal Inspection, No Blood Throat/Mouth: Normal Inspection, Normal Lips, Normal Voice, No Airway Compromise Head: Atraumatic, Normocephalic Neck: Normal Inspection, Full Range of Motion Respiratory/Chest: No Respiratory Distress, Lungs Clear, Normal Breath Sounds, No Accessory Muscle Use Cardiovascular: No Murmur, Tachycardia (regular) GI/Abdominal: Normal Bowel Sounds, Soft, Non-Tender, No Organomegaly, No Distention Back Exam: Normal Inspection, Full Range of Motion. No: CVA Tenderness (L), CVA Tenderness (R) Extremities: Normal Inspection, Normal Range of Motion Neurological: Alert, Oriented, Normal Cognition, No Motor/Sensory Deficits Psychiatric: Normal Affect, Normal Mood Skin Exam: Warm, Dry, Intact, Normal Color, No Rash Course - Vital Signs Last Recorded V/S: Last Vital Signs Temp 100.5 F 05/14/19 18:30 Pulse 109 H 05/14/19 18:30 Resp 14 05/14/19 18:30 BP 160/74 H 05/14/19 18:30 Pulse Ox 93 L 05/14/19 18:30 - Orders/Labs/Meds Labs: Laboratory Tests 05/14/19 05/14/19 05/14/19 Range/Units 16:00 16:00 16:05 WBC 53.82 H* D (5.00-10.00) 10^3/uL RBC 5.09 (4.50-6.00) 10^6/uL Hgb 14.7 D (13.0-17.0) g/dL Hct 43.1 (40.0-52.0) % MCV 84.7 (82.0-92.0) fL MCH 28.9 (27.0-31.0) pg MCHC 34.1 (32.0-36.0) g/dL RDW 14.4 (11.5-14.5) % Plt Count 158 (150-400) 10^3/uL MPV 10.3 (7.4-10.4) fL Immature Gran % (Auto) Supervisor Curing Room Neut % (Auto) Supervisor Curing Room Lymph % (Auto) Supervisor Curing Room [place] % (Auto) Supervisor Curing Room Eos % (Auto) Supervisor Curing Room Baso % (Auto) Supervisor Curing Room Immature Gran # (Auto) Supervisor Curing Room Neut # (Auto) Supervisor Curing Room Lymph # (Auto) Supervisor Curing Room [place] # (Auto) Supervisor Curing Room Eos # (Auto) Supervisor Curing Room Baso # (Auto) Supervisor Curing Room Add Manual Diff Yes Neutrophils % (Manual) 13 L (50-70) % Lymphocytes % (Manual) 52 H (20-40) % Atypical Lymphs % 29 Monocytes % (Manual) 6 (2-8) % Absolute Neutrophils 6.9966 Lymphocytes # (Manual) 43.5942 Monocytes # (Manual) 3.2292 Sodium 135 L (136-145) mmol/L Potassium 4.2 (3.3-5.3) mmol/L Chloride 97 L (98-115) mmol/L Carbon Dioxide 25.9 (21.0-32.0) mmol/L Anion Gap 16.3 H (5-15) mmol/L BUN 19 (6-25) mg/dL Creatinine 0.99 (0.51-1.17) mg/dL Est Cr Clr Drug Dosing 80.56 mL/min Estimated GFR (MDRD) > 60 mL/min Glucose 177 H (75 - 99) mg/dL Calcium 10.2 D (8.7-10.3) mg/dL Total Bilirubin 1.3 H (0.2-1.0) mg/dL AST 167 H (15-37) U/L ALT 212 H (12-78) U/L Alkaline Phosphatase 210 H (46-116) IU/L Total Protein 7.1 (6.4-8.2) g/dL Albumin 3.87 (3.00-4.80) g/dL Specimen Type . Urine Color Yellow (YELLOW) Urine Appearance Clear (CLEAR) Urine pH 8.0 (5.0-9.0) Ur Specific [place] 1.020 (1.005-1.030) Urine Protein Trace H (NEGATIVE) mg/dL Urine Glucose (UA) 100 H (NEGATIVE) mg/dL Urine Ketones Negative (NEGATIVE) mg/dL Urine Occult Blood Trace-intact H (NEGATIVE) Urine Nitrite Negative (NEGATIVE) Urine Bilirubin Negative (NEGATIVE) Urine Urobilinogen 0.2 (0.2-1.0) E.U./dL Ur Leukocyte Esterase Negative (NEGATIVE) Urine RBC 5-10 H (0-5) /HPF Urine WBC 0-5 (0-5) /HPF Ur Epithelial Cells Occasional /LPF Urine Bacteria Occasional (NONE TO FEW) /HPF Meds: Medications Discontinued Medications Generic Name Dose Route Start Last Admin Trade Name Brooke PRN Reason Stop Dose Admin Sodium Chloride 1,000 mls @ 999 mls/hr 05/14/19 17:08 05/14/19 17:22 Normal Saline IV 05/14/19 18:08 999 mls/hr .BOLUS ONE Administration - Re-Assessments/Exams Free Text/Narrative Re-Assessment/Exam: 05/14/19 17:12 UA shows no evidence of UTI. WBC is markedly elevated at 53.8 but is expected with his CML and cannot be used to rule in or out infection. I discussed this somewhat complicated case with Dr. Pinzon high school professional for [place]. She is reviewing his record and will contact me back but her first thought is that the urine symptoms may be attributed to the increased Januvia dose, possibly. We will give IV fluids for the heart rate now. 05/14/19 17:52 Dr. Pinzon feels this is most likely resulting from his Phentermine that was just started yesterday. We will hold the Phentermine and patient will follow up on Thursday for recheck. 05/14/19 18:38 After fluids, HR and BP are improved. Discussed findings and treatment plan with patient, including that while we didn't find significant evidence of infection, we haven't completely ruled it out either. Therefore if he starts to feel worse or temperature continues to climb he should return for further evaluation. He agrees and is discharged to home in stable condition. Departure - Departure Time of Disposition: 18:34 Disposition: Home, Self-Care 01 Condition: Good Clinical Impression: Dysuria, Tachycardia with heart rate 100-120 beats per minute, CML (chronic myelocytic leukemia) Leukocytosis Qualifiers: Leukocytosis type: lymphocytosis Qualified Code(s): D72.820 - Lymphocytosis ( symptomatic) - Discharge Information Additional Instructions: 1. Stop your phentermine and recheck with your PCP on Thursday or Thursday. 2. Drink 8 cups of water daily. 3. Return to ER if any problems.
[2019-05-14 16:38] LABS: ANION GAP 16.3 mmol/L (5-15); CHLORIDE,CL 97 mmol/L (98-115); SODIUM,NA 135 mmol/L (136-145)
[2019-05-14] MEDS: Sodium Chloride 0.9% 1,000 ML IV ONE (17:22)
== END 2019-05-14 18:45 | disposition home or self-care (01) ==
LOC: KA.ED 15:46
DX: R30.0 Dysuria (principal); R00.0 Tachycardia, unspecified; C92.10 Chronic myeloid leukemia, BCR/ABL-positive, not having achieved remission; E11.9 Type 2 diabetes mellitus without complications; E78.5 Hyperlipidemia, unspecified; I10 Essential (primary) hypertension; J45.909 Unspecified asthma, uncomplicated; Z79.84 Long term (current) use of oral hypoglycemic drugs; Z79.899 Other long term (current) drug therapy
CPT/HCPCS: 36415; 80053; 81001; 85025; 99283; J7030

== ENCOUNTER 2019-12-12 09:26 | Day surgery (SDC) | payer MEDICARE, BC, OTHER ==
[~2019-12-12 09:26] MED LIST: Midazolam 1 MG/ML 2 ML SDV ONE; Propofol 200 MG/20 ML SDV ONE
[2019-12-12] MEDS ORDERED: Midazolam 1 MG/ML 2 ML SDV IV ONE (09:27)
[2019-12-12] MEDS ORDERED: Propofol 200 MG/20 ML SDV IV ONE (09:27)
[2019-12-12] MEDS ORDERED: Sodium Chloride 0.9% 1,000 ML IV SCH (09:30)
[2019-12-12] MEDS ORDERED: Sodium Chloride 0.9% 10 ML Syringe FLUSH PRN (09:30)
[2019-12-12] MEDS ORDERED: Propofol 200 MG/20 ML SDV ONE ×2 (10:02→10:23)
[2019-12-12] MEDS ORDERED: Lactated Ringers 1,000 ML ONE (10:28)
--- NOTE | 2019-12-12 11:55 | PCM.PRNOTE ---
- Free Text/Narrative Note: PROCEDURE PERFORMED: Colonoscopy with polypectomies PRE-PROCEDURE DIAGNOSIS/INDICATION FOR PROCEDURE: Screening for colorectal cancer; no prior history of screening for colorectal cancer CONSENT: Informed consent was obtained prior to the procedure after discussion of the risks (including pain, bleeding, infection, perforation, missed polyps, inability to completely remove polyps or complete procedure necessitating repeat colonoscopy, adverse reaction to anesthesia, cardiovascular event), benefits and alternatives and expected outcomes. The patient expressed understanding and wished to proceed. Verbal consent given and consent form signed. PROCEDURAL PAUSE: Completed SEDATION: Per anesthesia DESCRIPTION OF PROCEDURE: Patient was placed in the left lateral decubitus position. After adequate sedation and anesthetic was administered, a rectal exam was performed revealing no abnormalities. A lubricated Olympus Video Colonoscope was inserted into the rectum and air insufflation was performed. The colonoscope was advanced through the rectum, sigmoid, descending, transverse, and ascending colon without difficulties. The cecum was reached and the ileocecal valve as well as the appendiceal orifice were identified and pictorially documented. After adequate visualization of the cecum, the scope was withdrawn, giving 360-degree views of the colonic mucosa and retroflexion was performed in the rectum with the following findings noted: Ileocecal valve: Normal Cecum: Normal Ascending colon: One 1.2cm pedunculated polyp at 140cm removed with hot snare ; One 0.5cm polyp at 135cm removed with cold forceps Hepatic flexure: Normal Transverse colon: One 1cm pedunculated polyp at 120cm removed with hot snare ; Two 0.8cm pedunculated polyps removed with hot snare Splenic flexure: Normal Descending colon: Normal Sigmoid colon: One 1cm pedunculated polyp at 55cm removed with hot snare; Moderate small-medium mouth diverticulosis Rectum: Normal All polyps removed were noted to completely removed with subsequent hemostasis and no significant mucosal defect noted. The scope was straightened, air suction performed, and the scope withdrawn without complication. Preparation adequacy good: [place] Bowel Prep 03/21. IMPRESSION: Colonoscopy performed revealing 6 polyps s/p polypectomy, pathology now pending ; and sigmoid diverticulosis. PLAN: Will contact the patient when pathology results received with recommendation for repeat colonoscopy. Encourage increased fiber diet and bowel regimen to ensure 1-2 soft bowel movements per day. Soft diet today. Return precautions discussed.
== END 2019-12-12 12:30 | disposition home or self-care (01) ==
LOC: KA.SDS 09:26
PROVIDERS: ATTEND Family Medicine
DX: Z12.11 Encounter for screening for malignant neoplasm of colon (principal); D12.2 Benign neoplasm of ascending colon; D12.3 Benign neoplasm of transverse colon; D12.5 Benign neoplasm of sigmoid colon; K57.30 Diverticulosis of large intestine without perforation or abscess without bleeding; Z11.59 Encounter for screening for other viral diseases; K21.9 Gastro-esophageal reflux disease without esophagitis; C91.10 Chronic lymphocytic leukemia of B-cell type not having achieved remission; N28.89 Other specified disorders of kidney and ureter; J98.4 Other disorders of lung; G62.9 Polyneuropathy, unspecified; M1A.00X0 Idiopathic chronic gout, unspecified site, without tophus (tophi); E11.9 Type 2 diabetes mellitus without complications; E66.9 Obesity, unspecified; E78.2 Mixed hyperlipidemia; I10 Essential (primary) hypertension; Z79.899 Other long term (current) drug therapy; Z87.891 Personal history of nicotine dependence; Z68.28 Body mass index [BMI] 28.0-28.9, adult
CPT/HCPCS: 00812; 45385; 82962; J2250; J2704; J7030; U0002; 88305

== ENCOUNTER 2020-05-18 14:43 | Inpatient (IN) | payer MEDICARE, BC ==
[2020-05-18] MEDS ORDERED: Sodium Chloride 0.9% 1,000 ML ONE (14:57)
--- NOTE | 2020-05-18 15:31 | EDM.PDOC ---
ED HPI GENERAL MEDICAL PROBLEM - General Chief Complaint: Chest Pain Stated Complaint: HBP Time Seen by Provider: 05/18/20 15:20 Source of Information: Reports: Patient History Limitations: Reports: No Limitations - History of Present Illness INITIAL COMMENTS - FREE TEXT/NARRATIVE: Patient presents with tachycardia. He says it started abruptly at 1400 today while he was helping a friend skin a deer. He started walking to the house but got lightheaded. Denies chest pain. He has leukemia. - Related Data Allergies Allergy/AdvReac Type Severity Reaction Status Date / Time No Known Drug Allergies Allergy Other Verified 05/18/20 15:09 Home Meds: Home Meds Losartan [Cozaar] 100 mg PO DAILY 02/03/19 [History] Montelukast [Singulair] 10 mg PO BEDTIME 02/03/19 [History] SitaGLIPtin [Januvia] 100 mg PO DAILY 02/03/19 [History] amLODIPine [Norvasc] 5 mg PO DAILY 02/03/19 [History] metFORMIN HCl [Glucophage] 1,000 mg PO BID 02/03/19 [History] hydroCHLOROthiazide [Hydrochlorothiazide] 25 mg PO DAILY 02/04/19 [History] Cholecalciferol (Vitamin D3) [Vitamin D3] 2,000 unit PO DAILY 05/14/19 [History] Fluticasone Propionate [Flonase] 1 spray NASBOTH BID PRN 05/14/19 [History] Rosuvastatin Calcium [Crestor] 40 mg PO DAILY 05/14/19 [History] Ubidecarenone [Co Q-10] 200 mg PO DAILY 05/14/19 [History] allopurinoL [Zyloprim] 300 mg PO DAILY 05/14/19 [History] Albuterol [Ventolin HFA] 1 puff IH DAILY PRN 12/09/19 [History] Betamethasone Dipropionate [Diprosone 0.05% Crm] 1 applic TOP BID 12/09/19 [ History] Pantoprazole Sodium [Protonix] 40 mg PO DAILY 12/09/19 [History] Past Medical History HEENT History: Reports: Hard of Hearing, Impaired Vision Cardiovascular History: Reports: High Cholesterol, Hypertension Respiratory History: Reports: Asthma, Intubation, Difficult, Intubation, Previous, Other (See Below) Other Respiratory History: Restrictive lung disease Gastrointestinal History: Reports: GERD, Other (See Below) Other Gastrointestinal History: "loose stools from metformin" Genitourinary History: Reports: Other (See Below) Other Genitourinary History: renal mass Musculoskeletal History: Reports: Gout, Osteoarthritis Neurological History: Reports: Neuropathy, Peripheral Other Neuro History: Polyneuropathy stable Psychiatric History: Reports: None Endocrine/Metabolic History: Reports: Diabetes, Type II Hematologic History: Reports: Other (See Below) Other Hematologic History: current Vt D deficient Oncologic (Cancer) History: Reports: Leukemia, Renal, Other (See Below) Other Oncologic History: Chronic Lymphatic Leukemia Dermatologic History: Reports: None - Infectious Disease History Infectious Disease History: Reports: None - Past Surgical History HEENT Surgical History: Reports: Adenoidectomy, Tonsillectomy GI Surgical History: Reports: Appendectomy Musculoskeletal Surgical History: Reports: Knee Replacement Dermatological Surgical History: Reports: None Social & Family History - Family History Family Medical History: Noncontributory - Tobacco Use Tobacco Use Status *Q: Never Tobacco User Second Hand Smoke Exposure: No - Caffeine Use Caffeine Use: Reports: Coffee - Recreational Drug Use Recreational Drug Use: No ED ROS GENERAL - Review of Systems Review Of Systems: See Below Constitutional: Denies: Fever, Chills, Diaphoresis HEENT: Denies: Ear Pain, Throat Pain, Vision Change Respiratory: Denies: Shortness of Breath, Cough Cardiovascular: Reports: Lightheadedness. Denies: Chest Pain, Syncope GI/Abdominal: Denies: Abdominal Pain, Vomiting : Denies: Dysuria, Flank Pain Musculoskeletal: Denies: Neck Pain, Shoulder Pain, Arm Pain, Back Pain Skin: Denies: Cyanosis, Jaundice, Mottled, Pallor, Diaphoresis Neurological: Denies: Confusion, Dizziness, Headache, Seizure, Syncope, Trouble Speaking, Difficulty Walking Psychiatric: Denies: Agitation, Anxiety, Confusion ED EXAM, GENERAL - Physical Exam Exam: See Below Exam Limited By: No Limitations General Appearance: Alert, WD/WN, No Apparent Distress Eye Exam: Bilateral Eye: EOMI, Normal Inspection, PERRL Ears: Normal External Exam, Hearing Grossly Normal Nose: Normal Inspection, No Blood Throat/Mouth: Normal Inspection, Normal Lips, Normal Voice, No Airway Compromise Head: Atraumatic, Normocephalic Neck: Normal Inspection, Full Range of Motion Respiratory/Chest: No Respiratory Distress, Lungs Clear, Normal Breath Sounds, No Accessory Muscle Use Cardiovascular: No Edema, No JVD, No Murmur, Tachycardia, Irregularly Irregular Peripheral Pulses: 2+: Carotid (L), Carotid (R), Radial (L), Radial (R), Posterior Tibial (L), Posterior Tibial (R) GI/Abdominal: Normal Bowel Sounds, Soft, Non-Tender, No Organomegaly, No Distention Back Exam: Normal Inspection, Full Range of Motion Extremities: Normal Inspection, Normal Range of Motion, Non-Tender, No Pedal Edema Neurological: Alert, Oriented, Normal Cognition, No Motor/Sensory Deficits Psychiatric: Normal Affect, Normal Mood Skin Exam: Warm, Dry, Intact, Normal Color, No Rash Course - Vital Signs Last Recorded V/S: Last Vital Signs Temp 97 F 05/18/20 16:45 Pulse 118 H 05/18/20 21:45 Resp 15 05/18/20 18:15 BP 102/71 05/18/20 21:45 Pulse Ox 98 05/18/20 18:15 - Orders/Labs/Meds Orders: Active Orders 24 hr Category Date Time Status Patient Status [ADT] Routine ADT 05/18/20 23:10 Ordered EKG Documentation Completion [RC] ASDIRECTED Care 05/18/20 14:58 Active Diltiazem 125 mg Med 05/18/20 16:45 Active Sodium Chloride 0.9% [Normal Saline] 100 ml IV TITRATE EKG 12 Lead [EK] Stat Ther 05/18/20 14:57 Ordered Medication Orders Diltiazem HCl 125 mg/ Sodium (Chloride) 125 mls @ 5 mls/hr IV TITRATE ESAU; Protocol Last Infusion: 05/18/20 21:15 Dose: 10 mg/hr, 10 mls/hr Documented by: Admin: 05/18/20 18:00 Dose: 5 mg/hr, 5 mls/hr Documented by: LISA Labs: Laboratory Tests 05/18/20 05/18/20 05/18/20 Range/Units 15:00 15:00 17:08 WBC 48.83 H* (5.00-10.00) 10^3/uL RBC 4.76 (4.50-6.00) 10^6/uL Hgb 13.1 D (13.0-17.0) g/dL Hct 40.9 (40.0-52.0) % MCV 85.9 (82.0-92.0) fL MCH 27.5 (27.0-31.0) pg MCHC 32.0 (32.0-36.0) g/dL RDW 17.2 H (11.5-14.5) % Plt Count 161 (150-400) 10^3/uL MPV 12.6 H (7.4-10.4) fL Immature Gran % (Auto) Packing Line Operator Neut % (Auto) Packing Line Operator Lymph % (Auto) Packing Line Operator [place] % (Auto) Packing Line Operator Eos % (Auto) Packing Line Operator Baso % (Auto) Packing Line Operator Neut # (Auto) Packing Line Operator Lymph # (Auto) Packing Line Operator [place] # (Auto) Packing Line Operator Eos # (Auto) Packing Line Operator Baso # (Auto) Packing Line Operator Immature Gran # (Auto) Packing Line Operator Add Manual Diff Yes Neutrophils % (Manual) 17 L (50-70) % Lymphocytes % (Manual) 80 H (20-40) % Monocytes % (Manual) 3 (2-8) % Absolute Neutrophils 8.3011 Lymphocytes # (Manual) 39.0640 Monocytes # (Manual) 1.4649 Smudge Cells Moderate Sodium 140 (136-145) mmol/L Potassium 4.0 (3.3-5.3) mmol/L Chloride 102 (98-115) mmol/L Carbon Dioxide 24.9 (21.0-32.0) mmol/L Anion Gap 17.1 H (5-15) mmol/L BUN 28 H (6-25) mg/dL Creatinine 1.37 H (0.51-1.17) mg/dL Est Cr Clr Drug Dosing 57.43 mL/min Estimated GFR (MDRD) 52 mL/min Glucose 191 H (75 - 99) mg/dL Calcium 9.1 (8.7-10.3) mg/dL Troponin I (0.00-0.070) ng/mL SARS CoV-2 RNA Rapid LEDA Negative (NEGATIVE) 05/18/20 Range/Units 17:56 WBC (5.00-10.00) 10^3/uL RBC (4.50-6.00) 10^6/uL Hgb (13.0-17.0) g/dL Hct (40.0-52.0) % MCV (82.0-92.0) fL MCH (27.0-31.0) pg MCHC (32.0-36.0) g/dL RDW (11.5-14.5) % Plt Count (150-400) 10^3/uL MPV (7.4-10.4) fL Immature Gran % (Auto) Neut % (Auto) Lymph % (Auto) [place] % (Auto) Eos % (Auto) Baso % (Auto) Neut # (Auto) Lymph # (Auto) [place] # (Auto) Eos # (Auto) Baso # (Auto) Immature Gran # (Auto) Add Manual Diff Neutrophils % (Manual) (50-70) % Lymphocytes % (Manual) (20-40) % Monocytes % (Manual) (2-8) % Absolute Neutrophils Lymphocytes # (Manual) Monocytes # (Manual) Smudge Cells Sodium (136-145) mmol/L Potassium (3.3-5.3) mmol/L Chloride (98-115) mmol/L Carbon Dioxide (21.0-32.0) mmol/L Anion Gap (5-15) mmol/L BUN (6-25) mg/dL Creatinine (0.51-1.17) mg/dL Est Cr Clr Drug Dosing mL/min Estimated GFR (MDRD) mL/min Glucose (75 - 99) mg/dL Calcium (8.7-10.3) mg/dL Troponin I < 0.04 (0.00-0.070) ng/mL SARS CoV-2 RNA Rapid LEDA (NEGATIVE) Meds: Medications Generic Name Dose Route Start Last Admin Trade Name Freq PRN Reason Stop Dose Admin Diltiazem HCl 125 mg/ Sodium 125 mls @ 5 mls/hr 05/18/20 16:45 05/18/20 21:15 Chloride IV 10 mg/hr TITRATE ESAU 10 mls/hr Infusion Protocol 5 MG/HR Discontinued Medications Generic Name Dose Route Start Last Admin Trade Name Freq PRN Reason Stop Dose Admin Apixaban 5 mg 05/18/20 16:42 05/18/20 17:08 Eliquis PO 05/18/20 16:43 5 mg ONETIME ONE Administration Diltiazem HCl Confirm 05/18/20 19:40 Diltiazem Administered 05/18/20 19:41 Dose 25 mg .ROUTE .STK-MED ONE Diltiazem HCl 5 mg 05/18/20 19:43 05/18/20 19:54 Diltiazem IVPUSH 05/18/20 19:44 5 mg ONETIME ONE Administration Sodium Chloride Confirm 05/18/20 14:57 05/18/20 14:50 Normal Saline Administered 05/18/20 14:58 10 mls/hr Dose Administration 1,000 mls @ as directed .ROUTE .STK-MED ONE Metoprolol Tartrate 5 mg 05/18/20 15:40 05/18/20 15:50 Lopressor IVPUSH 05/18/20 15:41 5 mg ONETIME ONE Administration Metoprolol Tartrate Confirm 05/18/20 16:07 05/18/20 16:07 Lopressor Administered 05/18/20 16:08 5 mg Dose Administration 5 mg .ROUTE .STK-MED ONE Metoprolol Tartrate 5 mg 05/18/20 16:10 05/18/20 16:21 Lopressor IVPUSH 05/18/20 16:11 5 mg ONETIME ONE Administration - Re-Assessments/Exams Free Text/Narrative Re-Assessment/Exam: 05/18/20 16:47 HR improved from 190 to 145 after 3 doses of Metoprolol 5 mg IVP. I discussed case with Dr. Graf, cardio, who advised scar messer and laure with an overnight observation and cardiology consult outpatient to follow. She is available all weekend if needed for treatment advice but doesn't have room for transfer now. I discussed case with Pedro Ross NP who will accept but wants heart rate down aways first. 05/18/20 17:55 Dr. Bhatti from [facility] called to inform me that patient is on an experimental medication for his leukemia that is known to cause A Fib. We discussed treatment options and he agrees with the current plan. 05/18/20 23:13 We had to titrate very slowly to avoid hypotension but now have him stable with HR in 80-105 range and BP adequate. Discussed again with Pedro Ross NP who will accept for observation admission. Patient stable at discharge. Departure - Departure Time of Disposition: 23:26 Disposition: Refer to Observation Condition: Good Clinical Impression: Atrial fibrillation with rapid ventricular response Referrals: Prabhu Lord MD [Primary Care Provider] - Forms: ED Department Discharge Sepsis Event Note (ED) - Evaluation Sepsis Screening Result: No Definite Risk - Focused Exam Vital Signs: Vital Signs Temp Pulse Pulse Resp BP BP Pulse Ox 05/18/20 21:45 118 H 102/71 05/18/20 21:00 122 H 112/71 05/18/20 20:15 119 H 111/72 05/18/20 19:54 131 H 112/78 05/18/20 19:15 126 H 129/73 05/18/20 18:15 108 H 15 134/89 98 05/18/20 17:45 122 H 12 121/83 98 05/18/20 17:15 137 H 16 125/86 98 05/18/20 17:00 155 H 14 116/73 98 05/18/20 16:55 152 H 123/73 05/18/20 16:46 144 H 19 134/83 98 05/18/20 16:45 97 F 135 H 15 134/83 97 05/18/20 16:30 135 H 16 127/83 97 05/18/20 16:21 125 H 116/86 05/18/20 16:15 143 H 16 111/81 97 05/18/20 16:07 156 H 119/79 05/18/20 16:05 128 H 119/79 05/18/20 16:00 134 H 17 110/84 97 05/18/20 15:50 180 H 130/86 05/18/20 15:45 160 H 15 128/77 97 05/18/20 15:31 148 H 16 130/86 96 05/18/20 15:15 187 H 11 L 125/86 96 05/18/20 15:07 185 H 127/71 05/18/20 15:04 97.8 F 179 H 17 125/81 95 05/18/20 14:47 166 H 18 125/81 - My Orders Last 24 Hours: My Active Orders 05/18/20 14:57 EKG 12 Lead [EK] Stat 05/18/20 14:58 EKG Documentation Completion [RC] ASDIRECTED 05/18/20 16:45 Diltiazem 125 mg Sodium Chloride 0.9% [Normal Saline] 100 ml IV TITRATE 05/18/20 23:10 Patient Status [ADT] Routine - Assessment/Plan Last 24 Hours: My Active Orders 05/18/20 14:57 EKG 12 Lead [EK] Stat 05/18/20 14:58 EKG Documentation Completion [RC] ASDIRECTED 05/18/20 16:45 Diltiazem 125 mg Sodium Chloride 0.9% [Normal Saline] 100 ml IV TITRATE 05/18/20 23:10 Patient Status [ADT] Routine
[2020-05-18] MEDS ORDERED: Metoprolol Tartrate 5 MG/5 ML SDV IVPUSH ONE (15:40)
[2020-05-18] MEDS ORDERED: Metoprolol Tartrate 5 MG/5 ML SDV ONE (16:07)
[2020-05-18 16:09] LABS: ANION GAP 17.1 mmol/L (5-15)
[2020-05-18] MEDS: Metoprolol Tartrate 5 MG/5 ML SDV IVPUSH ONE ×2 (16:12→16:21)
[2020-05-18] MEDS ORDERED: Apixaban 5 MG Tab PO ONE (16:42)
[2020-05-18] MEDS: Diltiazem 125 MG in Sodium Chloride 0.9% 100 ML IV SCH (18:00)
[2020-05-18] MEDS ORDERED: Diltiazem 25 MG/5 ML SDV ONE (19:40)
[2020-05-18] MEDS ORDERED: Diltiazem 25 MG/5 ML SDV IVPUSH ONE (19:43)
[2020-05-19] MEDS ORDERED: Nitroglycerin 0.4 MG Tab.SL SL PRN (00:01)
[2020-05-19] MEDS ORDERED: Atropine 0.1 MG/ML 10 ML Syringe IVPUSH PRN (00:01)
[2020-05-19] MEDS ORDERED: EPINEPHrine 1:10,000 1 MG/10 ML Syringe IVPUSH PRN (00:01)
[2020-05-19] MEDS ORDERED: Lidocaine 2% 100 MG/5 ML Syringe IVPUSH PRN (00:01)
[2020-05-19] MEDS: Diltiazem 125 MG in Sodium Chloride 0.9% 100 ML IV SCH ×2 (05:00→08:33)
[2020-05-19] MEDS: Sodium Chloride 0.9% 1,000 ML IV SCH ×3 (05:36→21:12)
[2020-05-19] MEDS: Metoprolol Tartrate 5 MG/5 ML SDV IVPUSH SCH ×3 (11:06→14:14)
--- NOTE | 2020-05-19 11:28 | PCM.HP.2 ---
H&P History of Present Illness - General Date of Service: 05/19/20 Admit Problem/Dx: Admission Diagnosis/Problem Admission Diagnosis/Problem Tachycardia Source of Information: Patient, Old Records, Provider, RN History Limitations: Reports: No Limitations - Related Data Allergies/Adverse Reactions: Allergies Allergy/AdvReac Type Severity Reaction Status Date / Time No Known Drug Allergies Allergy Other Verified 05/18/20 15:09 Home Medications: Home Meds Losartan [Cozaar] 100 mg PO DAILY 02/03/19 [History] Montelukast [Singulair] 10 mg PO BEDTIME 02/03/19 [History] SitaGLIPtin [Januvia] 100 mg PO DAILY 02/03/19 [History] amLODIPine [Norvasc] 5 mg PO DAILY 02/03/19 [History] metFORMIN HCl [Glucophage] 1,000 mg PO BID 02/03/19 [History] hydroCHLOROthiazide [Hydrochlorothiazide] 25 mg PO DAILY 02/04/19 [History] Cholecalciferol (Vitamin D3) [Vitamin D3] 2,000 unit PO DAILY 05/14/19 [History] Fluticasone Propionate [Flonase] 1 spray NASBOTH BID PRN 05/14/19 [History] Rosuvastatin Calcium [Crestor] 40 mg PO DAILY 05/14/19 [History] Ubidecarenone [Co Q-10] 200 mg PO DAILY 05/14/19 [History] allopurinoL [Zyloprim] 300 mg PO DAILY 05/14/19 [History] Albuterol [Ventolin HFA] 1 puff IH DAILY PRN 12/09/19 [History] Betamethasone Dipropionate [Diprosone 0.05% Crm] 1 applic TOP BID 12/09/19 [History] Pantoprazole Sodium [Protonix] 40 mg PO DAILY 12/09/19 [History] Acyclovir [Zovirax] 400 mg PO BID 05/19/20 [History] Ibrutinib [Imbruvica] 420 mg PO 05/19/20 [History] Sulfamethoxazole/Trimethoprim [Sulfamethoxazole-Tmp Ds Tablet] 1 each PO 05/19/20 [History] Past Medical History HEENT History: Reports: Hard of Hearing, Impaired Vision Cardiovascular History: Reports: High Cholesterol, Hypertension Respiratory History: Reports: Asthma, Intubation, Difficult, Intubation, Previous, Other (See Below) Other Respiratory History: Restrictive lung disease Gastrointestinal History: Reports: GERD, Other (See Below) Other Gastrointestinal History: "loose stools from metformin" Genitourinary History: Reports: Other (See Below) Other Genitourinary History: renal mass Musculoskeletal History: Reports: Gout, Osteoarthritis Neurological History: Reports: Neuropathy, Peripheral Other Neuro History: Polyneuropathy stable Psychiatric History: Reports: None Endocrine/Metabolic History: Reports: Diabetes, Type II Hematologic History: Reports: Other (See Below) Other Hematologic History: current Vt D deficient Oncologic (Cancer) History: Reports: Leukemia, Renal, Other (See Below) Other Oncologic History: Chronic Lymphatic Leukemia Dermatologic History: Reports: None - Infectious Disease History Infectious Disease History: Reports: None - Past Surgical History HEENT Surgical History: Reports: Adenoidectomy, Tonsillectomy GI Surgical History: Reports: Appendectomy Musculoskeletal Surgical History: Reports: Knee Replacement Dermatological Surgical History: Reports: None Social & Family History - Family History Family Medical History: Noncontributory - Tobacco Use Tobacco Use Status *Q: Never Tobacco User Second Hand Smoke Exposure: No - Caffeine Use Caffeine Use: Reports: Coffee - Recreational Drug Use Recreational Drug Use: No H&P Review of Systems - Review of Systems: Review Of Systems: See Below General: Reports: No Symptoms HEENT: Reports: No Symptoms Pulmonary: Reports: No Symptoms Cardiovascular: Reports: Palpitations, Blood Pressure Problem. Denies: Syncope, Claudication Gastrointestinal: Reports: Diarrhea. Denies: Black Stool, Bloody Stool, Decreased Appetite, Distension, Hematemesis, Mucous in Stool, Nausea Genitourinary: Reports: No Symptoms Musculoskeletal: Reports: No Symptoms Skin: Denies: Rash, Wound, Lesions, Urticaria Psychiatric: Reports: No Symptoms Exam - Exam Exam: See Below - Vital Signs Vital Signs: Last Vital Signs Temp 98.7 F 05/19/20 11:08 Pulse 123 H 05/19/20 11:08 Resp 16 05/19/20 11:08 BP 114/74 05/19/20 11:08 Pulse Ox 96 05/19/20 11:08 Weight: 207 lb 4.8 oz - Exam Quality Assessment: DVT Prophylaxis. No: Supplemental Oxygen General: Alert, Oriented, 4 Neck: Supple Lungs: Clear to Auscultation, Normal Respiratory Effort, Decreased Breath Sounds Cardiovascular: Irregular Rhythm, Tachycardia GI/Abdominal Exam: Soft, Non-Tender. No: Distended (Male) Exam: Deferred Rectal (Males) Exam: Deferred Back Exam: No: CVA Tenderness (L) Extremities: No Pedal Edema Peripheral Pulses: 2+: Radial (L), Radial (R) Skin: Warm, Dry, Intact Neurological: Cranial Nerves Intact, Normal Speech, Normal Tone, Sensation Intact Neuro Extensive - Mental Status: Alert, Oriented x3, Memory Intact Psychiatric: Alert, Normal Affect, Normal Mood - Patient Data Lab Results Last 24 hrs: Laboratory Results - last 24 hr 05/18/20 05/18/20 05/18/20 Range/Units 15:00 15:00 17:08 WBC 48.83 H* (5.00-10.00) 10^3/uL RBC 4.76 (4.50-6.00) 10^6/uL Hgb 13.1 D (13.0-17.0) g/dL Hct 40.9 (40.0-52.0) % MCV 85.9 (82.0-92.0) fL MCH 27.5 (27.0-31.0) pg MCHC 32.0 (32.0-36.0) g/dL RDW 17.2 H (11.5-14.5) % Plt Count 161 (150-400) 10^3/uL MPV 12.6 H (7.4-10.4) fL Immature Gran % (Auto) [employer] Neut % (Auto) [employer] Lymph % (Auto) [employer] Love % (Auto) [employer] Eos % (Auto) [employer] Baso % (Auto) [employer] Neut # (Auto) [employer] Lymph # (Auto) [employer] Love # (Auto) [employer] Operator Eos # (Auto) [employer] Operator Baso # (Auto) [employer] Operator Immature Gran # (Auto) [employer] Add Manual Diff Yes Neutrophils % (Manual) 17 L (50-70) % Lymphocytes % (Manual) 80 H (20-40) % Monocytes % (Manual) 3 (2-8) % Absolute Neutrophils 8.3011 Lymphocytes # (Manual) 39.0640 Monocytes # (Manual) 1.4649 Smudge Cells Moderate Sodium 140 (136-145) mmol/L Potassium 4.0 (3.3-5.3) mmol/L Chloride 102 (98-115) mmol/L Carbon Dioxide 24.9 (21.0-32.0) mmol/L Anion Gap 17.1 H (5-15) mmol/L BUN 28 H (6-25) mg/dL Creatinine 1.37 H (0.51-1.17) mg/dL Est Cr Clr Drug Dosing 57.43 mL/min Estimated GFR (MDRD) 52 mL/min Glucose 191 H (75 - 99) mg/dL Calcium 9.1 (8.7-10.3) mg/dL Troponin I (0.00-0.070) ng/mL SARS CoV-2 RNA Rapid LEDA Negative (NEGATIVE) 05/18/20 Range/Units 17:56 WBC (5.00-10.00) 10^3/uL RBC (4.50-6.00) 10^6/uL Hgb (13.0-17.0) g/dL Hct (40.0-52.0) % MCV (82.0-92.0) fL MCH (27.0-31.0) pg MCHC (32.0-36.0) g/dL RDW (11.5-14.5) % Plt Count (150-400) 10^3/uL MPV (7.4-10.4) fL Immature Gran % (Auto) Neut % (Auto) Lymph % (Auto) Love % (Auto) Eos % (Auto) Baso % (Auto) Neut # (Auto) Lymph # (Auto) Love # (Auto) Eos # (Auto) Baso # (Auto) Immature Gran # (Auto) Add Manual Diff Neutrophils % (Manual) (50-70) % Lymphocytes % (Manual) (20-40) % Monocytes % (Manual) (2-8) % Absolute Neutrophils Lymphocytes # (Manual) Monocytes # (Manual) Smudge Cells Sodium (136-145) mmol/L Potassium (3.3-5.3) mmol/L Chloride (98-115) mmol/L Carbon Dioxide (21.0-32.0) mmol/L Anion Gap (5-15) mmol/L BUN (6-25) mg/dL Creatinine (0.51-1.17) mg/dL Est Cr Clr Drug Dosing mL/min Estimated GFR (MDRD) mL/min Glucose (75 - 99) mg/dL Calcium (8.7-10.3) mg/dL Troponin I < 0.04 (0.00-0.070) ng/mL SARS CoV-2 RNA Rapid LEDA (NEGATIVE) Result Diagrams: 05/18/20 15:00 05/18/20 15:00 Sepsis Event Note - Evaluation Sepsis Screening Result: No Definite Risk - Focused Exam Vital Signs: Vital Signs Temp Pulse Pulse Resp BP BP Pulse Ox 05/19/20 11:08 98.7 F 123 H 16 114/74 96 05/19/20 11:06 124 H 114/74 05/19/20 07:00 98.3 F 142 H 16 107/74 92 L 05/19/20 06:00 122 H 107/74 05/19/20 05:00 118 H 102/68 05/19/20 04:00 122 H 90/69 05/19/20 03:00 101 H 16 93/70 05/19/20 02:00 118 H 106/70 05/19/20 01:00 118 H 104/72 05/19/20 00:00 102 H 99/68 Problem List Initiated/Reviewed/Updated: Yes Orders Last 24hrs: Active Orders 24 hr Category Date Time Status Patient Status [ADT] Routine ADT 05/18/20 23:10 Active EKG Documentation Completion [RC] ASDIRECTED Care 05/18/20 14:58 Active Diltiazem 125 mg Med 05/18/20 16:45 Active Sodium Chloride 0.9% [Normal Saline] 100 ml IV TITRATE Sodium Chloride 0.9% [Normal Saline] 1,000 ml Med 05/19/20 05:30 Active IV ASDIRECTED EKG 12 Lead [EK] Stat Ther 05/18/20 14:57 Ordered Medication Orders Diltiazem HCl 125 mg/ Sodium (Chloride) 125 mls @ 5 mls/hr IV TITRATE ESAU; Protocol Last Admin: 05/19/20 08:33 Dose: 15 mg/hr, 15 mls/hr Documented by: Infusion: 05/19/20 08:33 Dose: 15 mg/hr, 15 mls/hr Documented by: Infusion: 05/19/20 06:33 Dose: 15 mg/hr, 15 mls/hr Documented by: Admin: 05/19/20 05:00 Dose: 10 mg/hr, 10 mls/hr Documented by: Infusion: 05/19/20 05:00 Dose: 5 mg/hr, 5 mls/hr Documented by: Infusion: 05/19/20 04:36 Dose: 10 mg/hr, 10 mls/hr Documented by: Infusion: 05/19/20 00:00 Dose: 5 mg/hr, 5 mls/hr Documented by: Infusion: 05/18/20 21:15 Dose: 10 mg/hr, 10 mls/hr Documented by: Admin: 05/18/20 18:00 Dose: 5 mg/hr, 5 mls/hr Documented by: LISA Sodium Chloride (Normal Saline) 1,000 mls @ 100 mls/hr IV ASDIRECTED Replaced by [facility] Admin: 05/19/20 11:05 Dose: 100 mls/hr Documented by: Infusion: 05/19/20 11:05 Dose: 100 mls/hr Documented by: Admin: 05/19/20 05:36 Dose: 100 mls/hr Documented by: LISA Assessment/Plan Comment:: History of present illness Paddy is a 69-year-old gentleman that was admitted initially into observation due to atrial fibrillation with RVR. Patient presented to the ED due to chest palpitations and lightheadedness which started suddenly while skinning a deer. States he felt quite lightheaded and flushed and he could feel that his heart rate was quite fast he was able to drive himself to the ED. Spent extended stay in the ED due to atrial fibrillation RVR with multiple rounds of beta-pilar and eventually was placed on calcium channel pilar diltiazem drip and once stabilized he was admitted to the floor into observation status. Patient has multiple risk factors for atrial fibrillation including hyperlipidemia, hypertension, obesity, along with newly administered drug for CLL--Imbruvica. Hospital course 05/19/2020; was notified 0 400 this morning reducing blood pressure systolic approximately 90 with ongoing diltiazem drip. Patient asymptomatic therefore continued diltiazem drip orders however added isotonic saline bolus with maintenance rate thereafter with improved SBP/MAP. Day patient sitting comfortably in bed, no chest pain, no shortness of breath, at rest breakthrough RVR 110-130's. Primary hospital problems Atrial fibrillation, RVR, acute/new onset, CHADS2-VASc 3, continue with rate control strategy at this time, anticoagulation with BID Apixaban, diltiazem drip, added metoprolol tartrate IV push. Chronic/stable problems CLL, with progressive lymphocytosis. Recently started Imbruvica--known agent for precipitant atrial fibrillation Hypertension, holding PO meds Hyperlipidemia, statin, crestor T2DM, Metformin, DPP4-I Januvia Restrictive lung disease, Montelukast, PRN DARYL Obesity, co-morbid Renal mass Vitamin D deficiency GERD History of gout, allopurinol Diverticulosis Peripheral polyneuropathy Osteoarthritis of knees Seasonal allergic rhinitis, Flonase Disposition/overall plan --Change to inpatient status due to high risk medications, the need for cardiac monitoring. --At this time continue with rate control strategy as acute onset, anticoagulation, continue with diltiazem drip and likely could benefit from added beta-pilar therapy, therefore will give metoprolol tartrate IV for improved at rest rate control to determine atrial fibrillation burden and determine toleration. Patient does have restrictive lung disease however very mild and stable. Plan is attempt conversion from IV infusion to oral p.m. Informed patient's oncologist Dr. Bethea's patient status since recently started Imbruvica could be offending agent for his atrial fibrillation - Mortality Measure Prognosis:: Good
[2020-05-19] MEDS ORDERED: Fluticasone Propionate Nasal Spray 16 GM Bottle NASBOTH PRN (11:56)
[2020-05-19] MEDS ORDERED: Albuterol 8 GM Inhaler INH PRN (11:56)
[2020-05-19] MEDS: Acyclovir 400 MG Tab PO SCH ×2 (13:17→21:08)
[2020-05-19] MEDS: Pantoprazole 40 MG Tab.CR PO SCH (13:17)
[2020-05-19] MEDS: Allopurinol 100 MG Tab PO SCH (13:17)
[2020-05-19] MEDS: Diltiazem IR 60 MG Tab PO SCH ×2 (17:03→21:08)
[2020-05-19] MEDS: Montelukast 10 MG Tab PO SCH (21:08)
[2020-05-19] MEDS: metFORMIN 500 MG Tab PO SCH (21:08)
[2020-05-19] MEDS: Betamethasone Dipropionate 0.05% Crm 15 GM Tube TOP SCH (22:08)
[2020-05-20] MEDS: Diltiazem IR 60 MG Tab PO SCH ×4 (04:50→17:30)
[2020-05-20] MEDS: Sodium Chloride 0.9% 1,000 ML IV SCH (06:13)
[2020-05-20 07:36] LABS: ANION GAP 15.3 mmol/L (5-15); CHLORIDE,CL 104 mmol/L (98-115); SODIUM,NA 138 mmol/L (136-145)
[2020-05-20] MEDS: metFORMIN 500 MG Tab PO SCH ×2 (08:29→20:47)
[2020-05-20] MEDS: Rosuvastatin 10 MG Tab PO SCH (08:29)
[2020-05-20] MEDS: Cholecalciferol (Vitamin D3) 25 MCG Tab PO SCH (08:29)
[2020-05-20] MEDS: Allopurinol 100 MG Tab PO SCH (08:29)
[2020-05-20] MEDS: JANUVIA 100 MG PO SCH (08:30)
[2020-05-20] MEDS: Acyclovir 400 MG Tab PO SCH ×2 (08:30→20:47)
[2020-05-20] MEDS: Pantoprazole 40 MG Tab.CR PO SCH (08:32)
[2020-05-20] MEDS: Betamethasone Dipropionate 0.05% Crm 15 GM Tube TOP SCH ×2 (08:32→20:47)
[2020-05-20] MEDS ORDERED: Apixaban 5 MG Tab ONE (10:10)
[2020-05-20] MEDS: Apixaban 5 MG Tab PO SCH ×3 (10:22→20:47)
[2020-05-20] MEDS ORDERED: Digoxin 125 MCG Tab ONE (11:23)
[2020-05-20] MEDS ORDERED: Digoxin 125 MCG Tab PO ONE ×3 (12:00→23:55)
[2020-05-20] MEDS ORDERED: Digoxin 50 MCG/ML Soln 60 ML Bottle PO ONE ×2 (12:00→23:55)
--- NOTE | 2020-05-20 12:11 | PCM.PN ---
- General Info Date of Service: 05/20/20 Functional Status: Reports: Pain Controlled - Review of Systems General: Reports: No Symptoms HEENT: Reports: No Symptoms Pulmonary: Reports: No Symptoms Cardiovascular: Reports: Palpitations Gastrointestinal: Reports: No Symptoms Genitourinary: Reports: No Symptoms Neurological: Reports: No Symptoms Psychiatric: Reports: No Symptoms - Patient Data Vitals - Most Recent: Last Vital Signs Temp 98.6 F 05/20/20 10:17 Pulse 134 H 05/20/20 11:52 Resp 18 05/20/20 10:17 BP 106/67 05/20/20 10:17 Pulse Ox 94 L 05/20/20 10:17 Weight - Most Recent: 207 lb 4.8 oz I&O - Last 24 Hours: Intake & Output 05/19/20 05/20/20 05/20/20 22:59 06:59 14:59 Intake Total 1620 970 Balance 1620 970 Lab Results Last 24 Hours: Laboratory Results - last 24 hr 05/20/20 Range/Units 07:10 Sodium 138 (136-145) mmol/L Potassium 3.8 (3.3-5.3) mmol/L Chloride 104 (98-115) mmol/L Carbon Dioxide 22.5 (21.0-32.0) mmol/L Anion Gap 15.3 H (5-15) mmol/L BUN 20 (6-25) mg/dL Creatinine 1.09 (0.51-1.17) mg/dL Est Cr Clr Drug Dosing 72.18 mL/min Estimated GFR (MDRD) > 60 mL/min Glucose 185 H (75 - 99) mg/dL Calcium 8.8 (8.7-10.3) mg/dL Total Bilirubin 0.6 (0.2-1.0) mg/dL AST 13 L (15-37) U/L ALT 14 (12-78) U/L Alkaline Phosphatase 61 (46-116) IU/L Total Protein 6.1 L (6.4-8.2) g/dL Albumin 3.15 (3.00-4.80) g/dL Med Orders - Current: Current Medications Acyclovir (Zovirax) 400 mg PO BID ESAU Last Admin: 05/20/20 08:30 Dose: 400 mg Documented by: Albuterol (Ventolin Hfa) 0 gm INH DAILY PRN PRN Reason: sob Allopurinol (Zyloprim) 300 mg PO DAILY [facility] Last Admin: 05/20/20 08:29 Dose: 300 mg Documented by: Apixaban (Eliquis) 5 mg PO BID [facility] Last Admin: 05/20/20 10:25 Dose: 5 mg Documented by: Betamethasone Dipropionate (Diprosone 0.05% Crm) 0 gm TOP BID [facility] Last Admin: 05/20/20 08:32 Dose: Not Given Documented by: Cholecalciferol (Vitamin D3) 50 mcg PO DAILY [facility] Last Admin: 05/20/20 08:29 Dose: 50 mcg Documented by: Digoxin (Lanoxin) 250 mcg PO ONETIME ONE Stop: 05/20/20 18:01 Digoxin (Lanoxin) 250 mcg PO ONETIME ONE Stop: 05/20/20 23:56 Diltiazem HCl (Cardizem) 90 mg PO QID [facility] Last Admin: 05/20/20 08:32 Dose: Not Given Documented by: Fluticasone Propionate (Flonase) 0 gm NASBOTH BID PRN PRN Reason: Allergies Sodium Chloride (Normal Saline) 1,000 mls @ 100 mls/hr IV ASDIRECTED [facility] Last Admin: 05/20/20 06:13 Dose: 100 mls/hr Documented by: Metformin HCl (Glucophage) 1,000 mg PO BID [facility] Last Admin: 05/20/20 08:29 Dose: 1,000 mg Documented by: Montelukast Sodium (Singulair) 10 mg PO BEDTIME [facility] Last Admin: 05/19/20 21:08 Dose: 10 mg Documented by: Dangelo 100 Mg Own (Med) 0 mg PO DAILY [facility] Last Admin: 05/20/20 08:30 Dose: 100 mg Documented by: Pantoprazole Sodium (Protonix) 40 mg PO DAILY [facility] Last Admin: 05/20/20 08:32 Dose: 40 mg Documented by: Rosuvastatin Calcium (Crestor) 40 mg PO DAILY [facility] Last Admin: 05/20/20 08:29 Dose: 40 mg Documented by: Discontinued Medications Apixaban (Eliquis) 5 mg PO ONETIME ONE Stop: 05/18/20 16:43 Last Admin: 05/18/20 17:08 Dose: 5 mg Documented by: Apixaban (Eliquis) Confirm Administered Dose 5 mg .ROUTE .STK-MED ONE Stop: 05/20/20 10:11 Last Admin: 05/20/20 10:21 Dose: Not Given Documented by: Digoxin (Lanoxin) 500 mcg PO ONETIME ONE Stop: 05/20/20 12:01 Digoxin (Lanoxin) Confirm Administered Dose 500 mcg .ROUTE .STK-MED ONE Stop: 05/20/20 11:24 Last Admin: 05/20/20 11:45 Dose: Not Given Documented by: Digoxin (Lanoxin) 500 mcg PO ONETIME ONE Stop: 05/20/20 12:01 Last Admin: 05/20/20 11:52 Dose: 500 mcg Documented by: Diltiazem HCl (Diltiazem) Confirm Administered Dose 25 mg .ROUTE .STK-MED ONE Stop: 05/18/20 19:41 Last Admin: 05/19/20 04:36 Dose: Not Given Documented by: Diltiazem HCl (Diltiazem) 5 mg IVPUSH ONETIME ONE Stop: 05/18/20 19:44 Last Admin: 05/18/20 19:54 Dose: 5 mg Documented by: Sodium Chloride (Normal Saline) Confirm Administered Dose 1,000 mls @ as directed .ROUTE .STK-MED ONE Stop: 05/18/20 14:58 Last Admin: 05/18/20 14:50 Dose: 10 mls/hr Documented by: Diltiazem HCl 125 mg/ Sodium (Chloride) 125 mls @ 5 mls/hr IV TITRATE ESAU; Protocol Last Admin: 05/19/20 08:33 Dose: 15 mg/hr, 15 mls/hr Documented by: Metoprolol Tartrate (Lopressor) 5 mg IVPUSH ONETIME ONE Stop: 05/18/20 15:41 Last Admin: 05/18/20 15:50 Dose: 5 mg Documented by: Metoprolol Tartrate (Lopressor) Confirm Administered Dose 5 mg .ROUTE .STK-MED ONE Stop: 05/18/20 16:08 Last Admin: 05/18/20 16:07 Dose: 5 mg Documented by: Metoprolol Tartrate (Lopressor) 5 mg IVPUSH ONETIME ONE Stop: 05/18/20 16:11 Last Admin: 05/18/20 16:21 Dose: 5 mg Documented by: Metoprolol Tartrate (Lopressor) 5 mg IVPUSH Q5M ESAU Stop: 05/19/20 11:11 Last Admin: 05/19/20 14:14 Dose: Not Given Documented by: - Exam Quality Assessment: DVT Prophylaxis. No: Supplemental Oxygen General: Alert, Oriented Neck: Supple Lungs: Clear to Auscultation, Normal Respiratory Effort Cardiovascular: Irregular Rhythm, Tachycardia GI/Abdominal Exam: Soft Peripheral Pulses: 2+: Radial (L), Radial (R) Skin: Warm, Dry, Intact Psy/Mental Status: Alert, Normal Affect, Normal Mood Sepsis Event Note - Evaluation Sepsis Screening Result: No Definite Risk - Focused Exam Vital Signs: Vital Signs Temp Pulse Pulse Resp BP BP Pulse Ox 05/20/20 11:52 134 H 05/20/20 10:17 98.6 F 101 H 18 106/67 94 L 05/20/20 06:37 99 F 116 H 20 99/72 92 L 05/20/20 04:50 134 H 102/66 05/20/20 03:05 98.1 F 90 16 114/72 95 05/20/20 00:30 100 - Problem List Review Problem List Initiated/Reviewed/Updated: Yes - My Orders Last 24 Hours: My Active Orders 05/19/20 11:56 Albuterol [Ventolin HFA] 0 gm INH DAILY PRN Fluticasone Propionate [Flonase] 0 gm NASBOTH BID PRN 05/19/20 11:59 RT Post Treatment Assessment [RC] Click to Edit RT Pre-Treatment Assessment [RC] Click to Edit 05/19/20 [facility] [employer] Diet [DIET] Acyclovir [Zovirax] 400 mg PO BID Pantoprazole [ProTONIX] 40 mg PO DAILY allopurinoL [Zyloprim] 300 mg PO DAILY 05/19/20 12:16 Code Status [Resuscitation Status] Routine 05/19/20 17:00 Diltiazem IR [Cardizem] 90 mg PO QID 05/19/20 21:00 Betamethasone Dipropionate [Diprosone 0.05% Crm] 0 gm TOP BID Montelukast [Singulair] 10 mg PO BEDTIME metFORMIN [Glucophage] 1,000 mg PO BID 05/20/20 09:00 Cholecalciferol (Vitamin D3) [Vitamin D3] 50 mcg PO DAILY Rosuvastatin [Crestor] 40 mg PO DAILY SitaGLIPtin [Januvia] 0 mg PO DAILY 05/20/20 10:06 Apixaban [Eliquis] 5 mg PO BID 05/20/20 18:00 Digoxin [Lanoxin] 250 mcg PO ONETIME ONE 05/20/20 23:55 Digoxin [Lanoxin] 250 mcg PO ONETIME ONE - Plan Plan:: History of present illness Paddy is a 69-year-old gentleman that was admitted initially into observation due to atrial fibrillation with RVR. Patient presented to the ED due to chest palpitations and lightheadedness which started suddenly while skinning a deer. States he felt quite lightheaded and flushed and he could feel that his heart rate was quite fast he was able to drive himself to the ED. Spent extended stay in the ED due to atrial fibrillation RVR with multiple rounds of beta-pilar and eventually was placed on calcium channel pilar diltiazem drip and once stabilized he was admitted to the floor into observation status. Patient has multiple risk factors for atrial fibrillation including hyperlipidemia, hypertension, obesity, along with newly administered drug for CLL--Imbruvica. Hospital course 05/19/2020; was notified 0400 this morning reducing blood pressure systolic approximately 90 with ongoing diltiazem drip. Patient asymptomatic therefore continued diltiazem drip orders however added isotonic saline bolus with maintenance rate thereafter with improved SBP/MAP. Day patient sitting comf ortably in bed, no chest pain, no shortness of breath, at rest breakthrough RVR 110-130's. 05/20/2020; some improvement with heart rate mainly at rest however breakthrough upon movement. Blood pressure slightly low however asymptomatic. Mild palpitations otherwise patient is feeling well. Primary hospital problems Atrial fibrillation, RVR, acute/new onset, CHADS2-VASc 3, continue with rate control strategy at this time, anticoagulation with BID Apixaban, continue with p.o. diltiazem and add digoxin with loading dose initially. Chronic/stable problems CLL, with progressive lymphocytosis. Recently started Imbruvica--known agent for precipitant atrial fibrillation Hypertension, holding PO meds Hyperlipidemia, statin, crestor T2DM, Metformin, DPP4-I Januvia Restrictive lung disease, Montelukast, PRN DARYL Obesity, co-morbid Renal mass Vitamin D deficiency GERD History of gout, allopurinol Diverticulosis Peripheral polyneuropathy Osteoarthritis of knees Seasonal allergic rhinitis, Flonase Disposition/overall plan --Continue with inpatient status due to high risk medications, the need for cardiac monitoring. --P.O. loading dose digoxin, then every 8 hours for improved breakthrough rate control 2/2 hypotension --At this time continue with rate control strategy as acute onset, anticoagulation, Informed patient's oncologist Dr. Bethea's patient status since recently started Imbruvica could be offending agent for his atrial fibrillation
[2020-05-20] MEDS: Montelukast 10 MG Tab PO SCH (20:46)
[2020-05-20] MEDS: Diltiazem IR 30 MG Tab PO SCH (23:58)
[2020-05-21] MEDS: Diltiazem IR 60 MG Tab PO SCH (00:02)
[2020-05-21] MEDS: Pantoprazole 40 MG Tab.CR PO SCH ×2 (06:02→07:11)
[2020-05-21] MEDS: Diltiazem IR 30 MG Tab PO SCH (06:02)
[2020-05-21] MEDS: Rosuvastatin 10 MG Tab PO SCH (09:45)
[2020-05-21] MEDS: Apixaban 5 MG Tab PO SCH (09:46)
[2020-05-21] MEDS: Acyclovir 400 MG Tab PO SCH (09:46)
[2020-05-21] MEDS: Cholecalciferol (Vitamin D3) 25 MCG Tab PO SCH (09:46)
[2020-05-21] MEDS: Allopurinol 100 MG Tab PO SCH (09:46)
[2020-05-21] MEDS: JANUVIA 100 MG PO SCH (09:51)
[2020-05-21] MEDS: Betamethasone Dipropionate 0.05% Crm 15 GM Tube TOP SCH (09:55)
[2020-05-21] MEDS: metFORMIN 500 MG Tab PO SCH (09:58)
[2020-05-21] MEDS ORDERED: Diltiazem IR 60 MG Tab PO SCH (11:00)
--- NOTE | 2020-05-22 16:14 | PCM.DCSUM1 ---
Discharge Summary - Hospital Course Diagnosis: Stroke: No - Discharge Data Discharge Date: 05/21/20 Discharge Disposition: Home, Self-Care 01 Condition: Good - Referral to Home Health Primary Care Physician: Prabhu Lord MD - Patient Summary/Data Complications: No complications after the patient converted to sinus rhythm - Patient Instructions Diet: Usual Diet as Tolerated Activity: No Strenuous Activities, Rest and Relax Today Driving: May Drive Today Showering/Bathing: May Shower Other/Special Instructions: Report any fluttering, dizziness, chest palpitations or any signs that you may be back in atrial fibrillation. I will place a cardiology consultation for you Jimi will eventually be calling you. Take your medicine Cardizem every day at noon. See you this or Thursday - Discharge Plan *PRESCRIPTION DRUG MONITORING PROGRAM REVIEWED*: Not Applicable *COPY OF PRESCRIPTION DRUG MONITORING REPORT IN PATIENT PORSHA: Not Applicable Prescriptions/Med Rec: Diltiazem HCl [Diltiazem 24Hr Cd] 240 mg PO DAILY #30 cap.er.24h Apixaban [Eliquis] 5 mg PO BID #60 tablet Home Medications: Home Meds Losartan [Cozaar] 100 mg PO DAILY 02/03/19 [History] Montelukast [Singulair] 10 mg PO BEDTIME 02/03/19 [History] SitaGLIPtin [Januvia] 100 mg PO DAILY 02/03/19 [History] amLODIPine [Norvasc] 5 mg PO DAILY 02/03/19 [History] metFORMIN HCl [Glucophage] 1,000 mg PO BID 02/03/19 [History] hydroCHLOROthiazide [Hydrochlorothiazide] 25 mg PO DAILY 02/04/19 [History] Cholecalciferol (Vitamin D3) [Vitamin D3] 2,000 unit PO DAILY 05/14/19 [History] Fluticasone Propionate [Flonase] 1 spray NASBOTH BID PRN 05/14/19 [History] Rosuvastatin Calcium [Crestor] 40 mg PO DAILY 05/14/19 [History] Ubidecarenone [Co Q-10] 200 mg PO DAILY 05/14/19 [History] allopurinoL [Zyloprim] 300 mg PO DAILY 05/14/19 [History] Albuterol [Ventolin HFA] 1 puff IH DAILY PRN 12/09/19 [History] Betamethasone Dipropionate [Diprosone 0.05% Crm] 1 applic TOP BID 12/09/19 [History] Pantoprazole Sodium [Protonix] 40 mg PO DAILY 12/09/19 [History] Acyclovir [Zovirax] 400 mg PO BID 05/19/20 [History] Ibrutinib [Imbruvica] 420 mg PO 05/19/20 [History] Sulfamethoxazole/Trimethoprim [Sulfamethoxazole-Tmp Ds Tablet] 1 each PO 05/19/20 [History] Apixaban [Eliquis] 5 mg PO BID #60 tablet 05/21/20 [Rx] Diltiazem HCl [Diltiazem 24Hr Cd] 240 mg PO DAILY #30 cap.er.24h 05/21/20 [Rx] Oxygen Therapy Mode: Room Air Referrals: Pedro Ross, CHEMI[employer] MEMBER [Nurse Practitioner] - (thursday) - Discharge Summary/Plan Comment DC Time >30 min.: Yes Discharge Summary/Plan Comment: Final diagnosis Atrial fibrillation, possible paroxysmal however converted to NSR pharmacologically, suspect Imbruvica induced History summary Paddy is a 69-year-old gentleman that was admitted initially into observation due to atrial fibrillation with RVR. Patient presented to the ED due to chest palpitations and lightheadedness which started suddenly while skinning a deer. States he felt quite lightheaded and flushed and he could feel that his heart rate was quite fast he was able to drive himself to the ED. Spent extended stay in the ED due to atrial fibrillation RVR with multiple rounds of beta-pilar and eventually was placed on calcium channel pilar diltiazem drip and once stabilized he was admitted to the floor into observation status. Patient has multiple risk factors for atrial fibrillation including hyperlipidemia, hypertension, obesity, along with newly administered drug for CLL--Imbruvica. Hospital course initially the patient did quite well on diltiazem drip and had a favorable improvement in his heart rate. He was taken off diltiazem drip placed on oral diltiazem 90 mg 4 times a day about an hour prior to removing the diltiazem drip. At one point on 05/19/2020; I was notified 0400 due to reducing blood pressure systolic approximately 90 with ongoing diltiazem drip. Patient asymptomatic therefore continued diltiazem drip orders however added isotonic saline bolus with maintenance rate thereafter with improved SBP/MAP. At one point he was given metoprolol tartrate 5 mg 2 and his heart rate reduced into the 90s however he did have low blood pressure about 95. Digoxin was eventually given with an oral load and then subsequent by mouth dosing He never had chest pain but he did have some mild sensations of chest palpitations. He never had an any major dizziness or any bleeding. He was given factor X A inhibitor for anticoagulation. I consulted with cardiology [place] one call twice regarding the plan of care and was ready to discharge the patient to send to [facility] for set up for cardioversion however during the middle the night the patient cardioverted spontaneously. EKG showed normal sinus rhythm heart rate 60s to 70s with nice regular P waves. Patient's oncologist was notified of patient's hospital admission and recommended ongoing Imbruvica despite atrial fibrillation Medication changes/adjustments upon discharge --Continue Imbruvica --Decrease losartan by 50% to 50 mg daily until follow-up --Hold HCTZ until follow-up Disposition --Patient was discharged to home self care with close follow-up. --Follow-up appointment scheduled --Discharge instructions --Cardiology appointment placed - General Info Functional Status: Reports: Pain Controlled - Review of Systems General: Reports: No Symptoms HEENT: Reports: No Symptoms Pulmonary: Reports: No Symptoms Cardiovascular: Reports: No Symptoms Gastrointestinal: Reports: No Symptoms Genitourinary: Reports: No Symptoms Skin: Reports: No Symptoms Neurological: Reports: No Symptoms Psychiatric: Reports: No Symptoms - Patient Data Vitals - Most Recent: Last Vital Signs Temp 98 F 05/21/20 10:56 Pulse 89 05/21/20 10:56 Resp 19 05/21/20 10:56 BP 135/85 05/21/20 10:56 Pulse Ox 93 L 05/21/20 10:56 Weight - Most Recent: 207 lb 4.8 oz Med Orders - Current: Current Medications Discontinued Medications Acyclovir (Zovirax) 400 mg PO BID [facility] Last Admin: 05/21/20 09:46 Dose: 400 mg Documented by: Albuterol (Ventolin Hfa) 0 gm INH DAILY PRN PRN Reason: sob Allopurinol (Zyloprim) 300 mg PO DAILY [facility] Last Admin: 05/21/20 09:46 Dose: 300 mg Documented by: Apixaban (Eliquis) 5 mg PO ONETIME ONE Stop: 05/18/20 16:43 Last Admin: 05/18/20 17:08 Dose: 5 mg Documented by: Apixaban (Eliquis) 5 mg PO BID [facility] Last Admin: 05/21/20 09:46 Dose: 5 mg Documented by: Apixaban (Eliquis) Confirm Administered Dose 5 mg .ROUTE .STK-MED ONE Stop: 05/20/20 10:11 Last Admin: 05/20/20 10:21 Dose: Not Given Documented by: Atropine Sulfate (Atropine 0.1 Mg/Ml) 0 mg IVPUSH ASDIRECTED PRN PRN Reason: Heart. Betamethasone Dipropionate (Diprosone 0.05% Crm) 0 gm TOP BID [facility] Last Admin: 05/21/20 09:55 Dose: Not Given Documented by: Cholecalciferol (Vitamin D3) 50 mcg PO DAILY [facility] Last Admin: 05/21/20 09:46 Dose: 50 mcg Documented by: Digoxin (Lanoxin) 500 mcg PO ONETIME ONE Stop: 05/20/20 12:01 Digoxin (Lanoxin) 250 mcg PO ONETIME ONE Stop: 05/20/20 18:01 Last Admin: 05/20/20 17:31 Dose: 250 mcg Documented by: Digoxin (Lanoxin) Confirm Administered Dose 500 mcg .ROUTE .STK-MED ONE Stop: 05/20/20 11:24 Last Admin: 05/20/20 11:45 Dose: Not Given Documented by: Digoxin (Lanoxin) 500 mcg PO ONETIME ONE Stop: 05/20/20 12:01 Last Admin: 05/20/20 11:52 Dose: 500 mcg Documented by: Digoxin (Lanoxin) 250 mcg PO ONETIME ONE Stop: 05/20/20 23:56 Last Admin: 05/20/20 23:39 Dose: Not Given Documented by: Diltiazem HCl (Diltiazem) Confirm Administered Dose 25 mg .ROUTE .STK-MED ONE Stop: 05/18/20 19:41 Last Admin: 05/19/20 04:36 Dose: Not Given Documented by: Diltiazem HCl (Diltiazem) 5 mg IVPUSH ONETIME ONE Stop: 05/18/20 19:44 Last Admin: 05/18/20 19:54 Dose: 5 mg Documented by: Diltiazem HCl (Cardizem) 90 mg PO QID [facility] Last Admin: 05/20/20 12:40 Dose: 90 mg Documented by: Diltiazem HCl (Cardizem) 90 mg PO Q6HR [facility] Last Admin: 05/21/20 00:02 Dose: Not Given Documented by: Diltiazem HCl (Cardizem) 90 mg PO Q6HR [facility] Stop: 05/21/20 05:01 Last Admin: 05/21/20 06:02 Dose: 90 mg Documented by: Diltiazem HCl (Cardizem) 90 mg PO Q6HR [facility] Last Admin: 05/21/20 10:51 Dose: 90 mg Documented by: Epinephrine HCl (Epinephrine 1:10,000) 1 mg IVPUSH ASDIRECTED PRN PRN Reason: Heart. Fluticasone Propionate (Flonase) 0 gm NASBOTH BID PRN PRN Reason: Allergies Sodium Chloride (Normal Saline) Confirm Administered Dose 1,000 mls @ as directed .ROUTE .STK-MED ONE Stop: 05/18/20 14:58 Last Admin: 05/18/20 14:50 Dose: 10 mls/hr Documented by: Diltiazem HCl 125 mg/ Sodium (Chloride) 125 mls @ 5 mls/hr IV TITRATE [facility]; Protocol Last Admin: 05/19/20 08:33 Dose: 15 mg/hr, 15 mls/hr Documented by: Sodium Chloride (Normal Saline) 1,000 mls @ 100 mls/hr IV ASDIRECTED [facility] Last Admin: 05/20/20 06:13 Dose: 100 mls/hr Documented by: Lidocaine HCl (Xylocaine 2%) 0 mg IVPUSH ASDIRECTED PRN PRN Reason: Heart. Metformin HCl (Glucophage) 1,000 mg PO BID [facility] Last Admin: 05/21/20 09:58 Dose: 1,000 mg Documented by: Metoprolol Tartrate (Lopressor) 5 mg IVPUSH ONETIME ONE Stop: 05/18/20 15:41 Last Admin: 05/18/20 15:50 Dose: 5 mg Documented by: Metoprolol Tartrate (Lopressor) Confirm Administered Dose 5 mg .ROUTE .STK-MED ONE Stop: 05/18/20 16:08 Last Admin: 05/18/20 16:07 Dose: 5 mg Documented by: Metoprolol Tartrate (Lopressor) 5 mg IVPUSH ONETIME ONE Stop: 05/18/20 16:11 Last Admin: 05/18/20 16:21 Dose: 5 mg Documented by: Metoprolol Tartrate (Lopressor) 5 mg IVPUSH Q5M [facility] Stop: 05/19/20 11:11 Last Admin: 05/19/20 14:14 Dose: Not Given Documented by: Montelukast Sodium (Singulair) 10 mg PO BEDTIME [facility] Last Admin: 05/20/20 20:46 Dose: 10 mg Documented by: Nitroglycerin (Nitrostat) 0.4 mg SL ASDIRECTED PRN PRN Reason: Heart. Januvia 100 Mg Own (Med) 0 mg PO DAILY [facility] Last Admin: 05/21/20 09:51 Dose: 100 mg Documented by: Pantoprazole Sodium (Protonix) 40 mg PO DAILY [facility] Last Admin: 05/20/20 08:32 Dose: 40 mg Documented by: Pantoprazole Sodium (Protonix) 40 mg PO ACBREAKFAST [facility] Last Admin: 05/21/20 07:11 Dose: Not Given Documented by: Rosuvastatin Calcium (Crestor) 40 mg PO DAILY [facility] Last Admin: 05/21/20 09:45 Dose: 40 mg Documented by: - Exam Quality Assessment: Denies: Supplemental Oxygen, Skin Breakdown General: Reports: Alert, Oriented Neck: Reports: Supple Lungs: Reports: Clear to Auscultation, Normal Respiratory Effort Cardiovascular: Reports: Regular Rate, Regular Rhythm, No Murmurs. Denies: Irregular Rhythm, Bradycardia, Tachycardia, Murmurs GI/Abdominal Exam: Soft Skin: Reports: Warm, Dry, Intact Neurological: Reports: Normal Gait
== END 2020-05-21 11:10 | disposition home or self-care (01) | DRG 309 ==
LOC: KA.ED 14:43 → UNDOADMOB 23:00 → KA.MS 23:00 → UNDOADMOB 23:10 → OBSVTOIN 05-19 09:57
PROVIDERS: ADMIT Nurse Practitioner Family; ATTEND Nurse Practitioner Family
DX: I48.91 Unspecified atrial fibrillation (principal); Z79.84 Long term (current) use of oral hypoglycemic drugs; Z79.899 Other long term (current) drug therapy; I48.0 Paroxysmal atrial fibrillation; C91.10 Chronic lymphocytic leukemia of B-cell type not having achieved remission; J45.909 Unspecified asthma, uncomplicated; I48.20 Chronic atrial fibrillation, unspecified; E78.5 Hyperlipidemia, unspecified; M10.9 Gout, unspecified; E11.42 Type 2 diabetes mellitus with diabetic polyneuropathy; I10 Essential (primary) hypertension; E66.9 Obesity, unspecified; H54.7 Unspecified visual loss; Z96.659 Presence of unspecified artificial knee joint; M19.90 Unspecified osteoarthritis, unspecified site; J30.2 Other seasonal allergic rhinitis; E55.9 Vitamin D deficiency, unspecified; E78.00 Pure hypercholesterolemia, unspecified; K21.9 Gastro-esophageal reflux disease without esophagitis; J98.4 Other disorders of lung; Z20.828 Contact with and (suspected) exposure to other viral communicable diseases; K57.90 Diverticulosis of intestine, part unspecified, without perforation or abscess without bleeding; E11.9 Type 2 diabetes mellitus without complications; G62.9 Polyneuropathy, unspecified; M17.9 Osteoarthritis of knee, unspecified; Z79.01 Long term (current) use of anticoagulants; Z87.09 Personal history of other diseases of the respiratory system; Z87.448 Personal history of other diseases of urinary system; Z85.528 Personal history of other malignant neoplasm of kidney; Z86.69 Personal history of other diseases of the nervous system and sense organs; Z87.19 Personal history of other diseases of the digestive system
CPT/HCPCS: 36415; 80048; 80053; 82962; 84484; 85025; 93005; A9270-GY; J3490; J7030; U0002

== ENCOUNTER 2020-07-22 18:07 | Inpatient (IN) | payer MEDICARE, BC ==
[2020-07-22] MEDS ORDERED: Sodium Chloride 0.9% 10 ML Syringe FLUSH PRN (18:35)
--- NOTE | 2020-07-22 18:39 | EDM.PDOC ---
ED HPI GENERAL MEDICAL PROBLEM - General Chief Complaint: Respiratory Problem Stated Complaint: SHORTNESS OF BREATH Time Seen by Provider: 07/22/20 18:15 Source of Information: Reports: Patient History Limitations: Reports: No Limitations - History of Present Illness INITIAL COMMENTS - FREE TEXT/NARRATIVE: 69 YO WM PRESENTS TO ER WITH WORSENING SHORTNESS OF BREATH WHICH BEGAN TODAY. PT TESTED POSITIVE FOR COVID 07/10/2020. PT WAS GIVEN MONOCLONAL ANTIBODY ON 07/17/2020. PT REPORTS HE BEGAN FEELING MORE SHORT OF BREATH YESTERDAY BUT HIS SAO2 AT HOME WERE IN THE LOW 90S SO HE DECIDED TO WAIT TO COME TO ER. TODAY PT REPORTS SAO2 IN THE HIGH 80S AT HOME PROMPTING ER EVALUATION. PT DENIES CHEST PAIN, VOMITING, DIAPHORESIS OR BACK PAIN. PT WITH SUBJECTIVE FEVER AT HOME. PT WITH HISTORY OF CLL X 7 YEARS AND CURRENTLY BEING TREATED AT [facility] FOR HIS LEUKEMIA. SAO2-93% ON 3L CURRENTLY. PT IS IN NO ACUTE DISTRESS. PT ABLE TO SPEAK WITHOUT BEING SHORT OF BREATH. PT ALERT AND ORIENTED X4. Onset: Gradual Onset Date: 07/10/20 Duration: Getting Worse, Waxing/Waning Location: Reports: Chest Severity: Moderate Improves with: Reports: Rest Worsens with: Reports: Breathing Associated Symptoms: Reports: Cough, Fever/Chills, Nausea/Vomiting, Shortness of Breath - Related Data Allergies Allergy/AdvReac Type Severity Reaction Status Date / Time No Known Drug Allergies Allergy Other Verified 07/22/20 18:33 Home Meds: Home Meds Losartan [Cozaar] 100 mg PO BEDTIME 02/03/19 [History] Montelukast [Singulair] 10 mg PO BEDTIME 02/03/19 [History] metFORMIN HCl [Glucophage] 1,000 mg PO BID 02/03/19 [History] Cholecalciferol (Vitamin D3) [Vitamin D3] 2,000 unit PO BEDTIME 05/14/19 [History] Fluticasone Propionate [Flonase] 1 spray NASBOTH BID PRN 05/14/19 [History] Rosuvastatin Calcium [Crestor] 40 mg PO BEDTIME 05/14/19 [History] Ubidecarenone [Co Q-10] 200 mg PO BEDTIME 05/14/19 [History] Albuterol [Ventolin HFA] 1 puff IH DAILY PRN 12/09/19 [History] Pantoprazole Sodium [Protonix] 40 mg PO ACBREAKFAST 12/09/19 [History] Acyclovir [Zovirax] 400 mg PO BID 05/19/20 [History] Ibrutinib [Imbruvica] 140 mg PO ACBREAKFAST 05/19/20 [History] Sulfamethoxazole/Trimethoprim [Sulfamethoxazole-Tmp Ds Tablet] 1 each PO MOWEFR 05/19/20 [History] Apixaban [Eliquis] 5 mg PO BID #60 tablet 05/21/20 [Rx] Allopurinol [Zyloprim] 300 mg PO DAILY 07/22/20 [History] Codeine Phosphate/Guaifenesin [Guaiatussin AC Liquid] 5 ml PO Q4H PRN 07/22/20 [History] Diltiazem HCl [Diltiazem 24Hr Cd] 240 mg PO DAILY@1200 07/22/20 [History] Venetoclax [Venclexta] 200 mg PO DAILY 07/22/20 [History] Zinc Sulfate 220 mg PO DAILY 07/22/20 [History] methylPREDNISolone [Methylprednisolone] 4 mg PO BID 07/22/20 [History] Past Medical History HEENT History: Reports: Hard of Hearing, Impaired Vision Cardiovascular History: Reports: High Cholesterol, Hypertension Respiratory History: Reports: Asthma, Intubation, Difficult, Intubation, Previous, Other (See Below) Other Respiratory History: Restrictive lung disease Gastrointestinal History: Reports: GERD, Other (See Below) Other Gastrointestinal History: "loose stools from metformin" Genitourinary History: Reports: Other (See Below) Other Genitourinary History: renal mass Musculoskeletal History: Reports: Gout, Osteoarthritis Neurological History: Reports: Neuropathy, Peripheral Other Neuro History: Polyneuropathy stable Psychiatric History: Reports: None Endocrine/Metabolic History: Reports: Diabetes, Type II Hematologic History: Reports: Other (See Below) Other Hematologic History: current Vt D deficient Oncologic (Cancer) History: Reports: Leukemia, Renal, Other (See Below) Other Oncologic History: Chronic Lymphatic Leukemia Dermatologic History: Reports: None - Infectious Disease History Infectious Disease History: Reports: None - Past Surgical History HEENT Surgical History: Reports: Adenoidectomy, Tonsillectomy GI Surgical History: Reports: Appendectomy Musculoskeletal Surgical History: Reports: Knee Replacement Dermatological Surgical History: Reports: None Social & Family History - Family History Family Medical History: No Pertinent Family History - Caffeine Use Caffeine Use: Reports: Coffee ED ROS GENERAL - Review of Systems Review Of Systems: See Below Constitutional: Reports: Fever, Chills, Malaise HEENT: Reports: Rhinitis Respiratory: Reports: Shortness of Breath, Cough Cardiovascular: Reports: Dyspnea on Exertion GI/Abdominal: Reports: Nausea. Denies: Abdominal Pain, Diarrhea, Vomiting : Reports: No Symptoms Musculoskeletal: Reports: No Symptoms Skin: Reports: No Symptoms Neurological: Reports: No Symptoms Psychiatric: Reports: No Symptoms Hematologic/Lymphatic: Reports: No Symptoms Immunologic: Reports: No Symptoms ED EXAM, GENERAL - Physical Exam Exam: See Below Exam Limited By: No Limitations General Appearance: Alert, WD/WN, No Apparent Distress Nose: Normal Inspection, Normal Mucosa, No Blood Throat/Mouth: Normal Inspection, Normal Lips, Normal Teeth, Normal Gums, Normal Oropharynx, Normal Voice, No Airway Compromise Head: Atraumatic, Normocephalic Neck: Normal Inspection, Supple, Non-Tender, Full Range of Motion Respiratory/Chest: No Respiratory Distress, Normal Breath Sounds, No Accessory Muscle Use, Chest Non-Tender, Decreased Breath Sounds. No: Respiratory Distress, Accessory Muscle Use, Retractions, Splinting Cardiovascular: Normal Peripheral Pulses, Regular Rate, Rhythm, No Edema, No Gallop, No JVD, No Murmur, No Rub GI/Abdominal: Normal Bowel Sounds, Soft, Non-Tender, No Organomegaly, No Distention, No Abnormal Bruit, No Mass Back Exam: Normal Inspection, Full Range of Motion, NT Extremities: Normal Inspection, Normal Range of Motion, Non-Tender, Normal Capillary Refill, No Pedal Edema Neurological: Alert, Oriented, CN II-XII Intact, Normal Cognition, Normal Gait, Normal Reflexes, No Motor/Sensory Deficits Psychiatric: Normal Affect, Normal Mood Skin Exam: Warm, Dry, Intact, Normal Color, No Rash Lymphatic: No Adenopathy #1 Interpretation EKG Date: 07/22/20 Time: 19:28 Rhythm: NSR Rate (Beats/Min): 92 [place]: Normal P-Wave: Present QRS: Normal ST-T: Normal QT: Normal Comparison: NA - No Prior EKG Course - Vital Signs Last Recorded V/S: Last Vital Signs Temp 99.2 F 07/22/20 18:10 Pulse 97 07/22/20 18:10 Resp 25 H 01/10/21 18:10 BP 150/89 H 07/22/20 18:10 Pulse Ox 91 L 07/22/20 18:10 - Orders/Labs/Meds Orders: Active Orders 24 hr Category Date Time Status EKG Documentation Completion [RC] ASDIRECTED Care 07/22/20 19:12 Active Peripheral IV Care [RC] . DIRECTED Care 07/22/20 18:35 Active Chest PE [Ang Chest] [CT] Stat Exams 07/22/20 20:22 Ordered Sodium Chloride 0.9% [Normal Saline] 1,000 ml Med 07/22/20 19:15 Active IV ASDIRECTED Sodium Chloride 0.9% [Normal Saline] 100 ml Med 07/22/20 20:30 Active IV ASDIRECTED Sodium Chloride 0.9% [Saline Flush] Med 07/22/20 18:35 Active 10 ml FLUSH Q8HR PRN Peripheral IV Insertion Adult [OM.PC] Routine Oth 07/22/20 18:35 Ordered EKG 12 Lead [EK] Stat Ther 07/22/20 19:11 Ordered Medication Orders Sodium Chloride (Normal Saline) 1,000 mls @ 150 mls/hr IV ASDIRECTED ESAU Last Admin: 07/22/20 19:40 Dose: 150 mls/hr Documented by: RAZ Sodium Chloride (Normal Saline) 100 mls @ 200 mls/min IV ASDIRECTED ESAU Last Admin: 07/22/20 21:19 Dose: 200 mls/min Documented by: BRICE Sodium Chloride (Saline Flush) 10 ml FLUSH Q8HR PRN PRN Reason: keep vein open Last Admin: 07/22/20 18:19 Dose: 10 ml Documented by: VIKKI Labs: Laboratory Tests 07/22/20 07/22/20 07/22/20 Range/Units 18:19 18:19 18:19 WBC 4.90 L D (5.00-10.00) 10^3/uL RBC 5.12 (4.50-6.00) 10^6/uL Hgb 14.8 D (13.0-17.0) g/dL Hct 43.6 (40.0-52.0) % MCV 85.2 (82.0-92.0) fL MCH 28.9 (27.0-31.0) pg MCHC 33.9 (32.0-36.0) g/dL RDW 15.6 H (11.5-14.5) % Plt Count 169 (150-400) 10^3/uL MPV 10.7 H (7.4-10.4) fL Immature Gran % (Auto) 0.6 (0.0-5.0) % Neut % (Auto) 79.4 H (50.0-70.0) % Lymph % (Auto) 7.8 L (20.0-40.0) % [place] % (Auto) 12.0 H (2.0-8.0) % Eos % (Auto) 0.0 L (1.0-3.0) % Baso % (Auto) 0.2 (0.0-1.0) % Neut # (Auto) 3.89 (2.50-7.00) 10^3/uL Lymph # (Auto) 0.38 L (1.00-4.00) 10^3/uL [place] # (Auto) 0.59 (0.10-0.80) 10^3/uL Eos # (Auto) 0.00 L (0.10-0.30) 10^3/uL Baso # (Auto) 0.01 (0.00-0.10) 10^3/uL Immature Gran # (Auto) 0.03 (0.00-0.50) 10^3/uL ABG pH (7.35-7.45) ABG pCO2 (35-45) mmHG ABG pO2 (80-105) mmHG ABG HCO3 (22-26) mmol/L ABG Total CO2 (23-27) mmol/L ABG O2 Saturation (95-98) % ABG Base Excess (-2-3) mmol/L O2 Delivery Device Sodium 131 L (136-145) mmol/L Potassium 4.2 (3.5-5.1) mmol/L Chloride 96 L (98-107) mmol/L Carbon Dioxide 24.4 (21.0-32.0) mmol/L Anion Gap 14.8 (5-15) mmol/L BUN 29 H (7-18) mg/dL Creatinine 1.29 H (0.51-1.17) mg/dL Est Cr Clr Drug Dosing 60.99 mL/min Estimated GFR (MDRD) 56 mL/min Glucose 209 H (70-140) mg/dL Lactic Acid 1.1 (0.4-2.0) mmol/L Calcium 9.4 (8.7-10.3) mg/dL Total Bilirubin 0.8 (0.2-1.0) mg/dL AST 16 (15-37) U/L ALT 18 (14-63) U/L Alkaline Phosphatase 88 (46-116) U/L Total Protein 7.1 (6.4-8.2) g/dL Albumin 2.98 L (3.40-5.00) g/dL 07/22/20 Range/Units 20:35 WBC (5.00-10.00) 10^3/uL RBC (4.50-6.00) 10^6/uL Hgb (13.0-17.0) g/dL Hct (40.0-52.0) % MCV (82.0-92.0) fL MCH (27.0-31.0) pg MCHC (32.0-36.0) g/dL RDW (11.5-14.5) % Plt Count (150-400) 10^3/uL MPV (7.4-10.4) fL Immature Gran % (Auto) (0.0-5.0) % Neut % (Auto) (50.0-70.0) % Lymph % (Auto) (20.0-40.0) % [place] % (Auto) (2.0-8.0) % Eos % (Auto) (1.0-3.0) % Baso % (Auto) (0.0-1.0) % Neut # (Auto) (2.50-7.00) 10^3/uL Lymph # (Auto) (1.00-4.00) 10^3/uL [place] # (Auto) (0.10-0.80) 10^3/uL Eos # (Auto) (0.10-0.30) 10^3/uL Baso # (Auto) (0.00-0.10) 10^3/uL Immature Gran # (Auto) (0.00-0.50) 10^3/uL ABG pH 7.38 (7.35-7.45) ABG pCO2 38 (35-45) mmHG ABG pO2 151 H* (80-105) mmHG ABG HCO3 22.7 (22-26) mmol/L ABG Total CO2 23 (23-27) mmol/L ABG O2 Saturation 99 H (95-98) % ABG Base Excess -2 (-2-3) mmol/L O2 Delivery Device Nasal cannula Sodium (136-145) mmol/L Potassium (3.5-5.1) mmol/L Chloride (98-107) mmol/L Carbon Dioxide (21.0-32.0) mmol/L Anion Gap (5-15) mmol/L BUN (7-18) mg/dL Creatinine (0.51-1.17) mg/dL Est Cr Clr Drug Dosing mL/min Estimated GFR (MDRD) mL/min Glucose (70-140) mg/dL Lactic Acid (0.4-2.0) mmol/L Calcium (8.7-10.3) mg/dL Total Bilirubin (0.2-1.0) mg/dL AST (15-37) U/L ALT (14-63) U/L Alkaline Phosphatase (46-116) U/L Total Protein (6.4-8.2) g/dL Albumin (3.40-5.00) g/dL Meds: Medications Generic Name Dose Route Start Last Admin Trade Name Freq PRN Reason Stop Dose Admin Sodium Chloride 1,000 mls @ 150 mls/hr 07/22/20 19:15 07/22/20 19:40 Normal Saline IV 150 mls/hr ASDIRECTED ESAU Administration Sodium Chloride 100 mls @ 200 mls/min 07/22/20 20:30 07/22/20 21:19 Normal Saline IV 200 mls/min ASDIRECTED ESAU Administration Sodium Chloride 10 ml 07/22/20 18:35 07/22/20 18:19 Saline Flush FLUSH 10 ml Q8HR PRN Administration keep vein open Discontinued Medications Generic Name Dose Route Start Last Admin Trade Name Freq PRN Reason Stop Dose Admin Dexamethasone 6 mg 07/22/20 19:59 07/22/20 20:00 Decadron IVPUSH 07/22/20 20:00 6 mg ONETIME ONE Administration Remdesivir 200 mg/ Sodium 250 mls @ 250 mls/hr 07/22/20 18:54 Chloride IV 07/22/20 18:55 ONETIME ONE Dexamethasone 6 mg/ Sodium 101.5 mls @ 231.618 mls/hr 07/22/20 19:00 Chloride IV ASDIRECTED ESAU Iopamidol 75 ml 07/22/20 20:27 07/22/20 21:19 Isovue-370 (76%) IVPUSH 07/22/20 20:28 75 ml ONETIME ONE Administration Ondansetron HCl 4 mg 07/22/20 19:45 07/22/20 19:57 Zofran IVPUSH 07/22/20 19:46 4 mg ONETIME ONE Administration - Radiology Interpretation Free Text/Narrative:: CXR- LEFT LOWER LOBE OPACIFICATION AND ELEVATED RIGHT HEMIDIAPHRAGM CT CHEST- R/O PE- BILATERAL PERIPHERAL GROUNDGLASS CHANGES AND BIBASILAR OPACITIES- NO PE Departure - Departure Time of Disposition: 21:56 Disposition: Admitted As Inpatient 68 Clinical Impression: Pneumonia due to COVID-19 virus, Hypoxemia - Discharge Information Referrals: Pedro Ross, [employer] [Primary Care Provider] - Forms: ED Department Discharge Sepsis Event Note (ED) - Focused Exam Vital Signs: Vital Signs Temp Pulse Resp BP Pulse Ox 07/22/20 18:10 99.2 F 97 25 H 150/89 H 91 L - My Orders Last 24 Hours: My Active Orders 07/22/20 18:35 Peripheral IV Care [RC] . DIRECTED Sodium Chloride 0.9% [Saline Flush] 10 ml FLUSH Q8HR PRN Peripheral IV Insertion Adult [OM.PC] Routine 07/22/20 19:11 EKG 12 Lead [EK] Stat 07/22/20 19:12 EKG Documentation Completion [RC] ASDIRECTED 07/22/20 19:15 Sodium Chloride 0.9% [Normal Saline] 1,000 ml IV ASDIRECTED 07/22/20 20:22 Chest PE [Ang Chest] [CT] Stat 07/22/20 20:30 Sodium Chloride 0.9% [Normal Saline] 100 ml IV ASDIRECTED - Assessment/Plan Last 24 Hours: My Active Orders 07/22/20 18:35 Peripheral IV Care [RC] . DIRECTED Sodium Chloride 0.9% [Saline Flush] 10 ml FLUSH Q8HR PRN Peripheral IV Insertion Adult [OM.PC] Routine 07/22/20 19:11 EKG 12 Lead [EK] Stat 07/22/20 19:12 EKG Documentation Completion [RC] ASDIRECTED 07/22/20 19:15 Sodium Chloride 0.9% [Normal Saline] 1,000 ml IV ASDIRECTED 07/22/20 20:22 Chest PE [Ang Chest] [CT] Stat 07/22/20 20:30 Sodium Chloride 0.9% [Normal Saline] 100 ml IV ASDIRECTED Assessment:: 1. COVID PNEUMONIA 2. HYPOXEMIA Plan: 1. ADMIT TO MEDICINE- DR JOSEPHINE VASQUEZ ACCEPTING 2. REMDESIVIR 200MG IV NOW 3. CONTINUE SUPPLEMENTAL O2 AND WEAN TO 4L 4. SUPPORTIVE CARE
[2020-07-22] MEDS ORDERED: REMDESIVIR 200 MG in Sodium Chloride 0.9% 250 ML IV ONE (18:54)
[2020-07-22 19:00] LABS: ANION GAP 14.8 mmol/L (5-15)
[2020-07-22] MEDS ORDERED: Sodium Chloride 0.9% 1,000 ML IV SCH (19:15)
[2020-07-22] MEDS ORDERED: Ondansetron 4 MG/2 ML SDV IVPUSH ONE (19:45)
--- NOTE | 2020-07-22 19:45 | CR ---
[id number] RAD/RAD Chest PA And Lateral EXAM: RAD Chest PA And Lateral INDICATION: DYSPNEA COMPARISON: None. DISCUSSION: Parenchymal opacification in the left lung base. Correlate for signs of infection as this could represent pneumonia. Differential diagnosis includes subsegmental atelectasis. Asymmetrically elevated right hemidiaphragm results in right lung base vascular crowding and atelectasis. No pneumothorax. Heart is normal in size. IMPRESSION: The above. Meir Figueredo MD 07/22/20 757 Thank you for allowing us to participate in the care of your patient.
[2020-07-22] MEDS ORDERED: Dexamethasone 10 MG/ML SDV IVPUSH ONE (19:59)
[2020-07-22] MEDS ORDERED: Iopamidol 755 Mg/ML 75 ML Bottle IVPUSH ONE (20:27)
[2020-07-22] MEDS ORDERED: Sodium Chloride 0.9% 100 ML IV SCH (20:30)
[2020-07-22 22:43] LABS: PTT,PARTIAL THROMBOPLSTIN TIME 32.7 SEC (22.8-31.4)
[2020-07-22] MEDS ORDERED: Fluticasone Propionate Nasal Spray 16 GM Bottle NASBOTH PRN (22:57)
[2020-07-22] MEDS ORDERED: 50% Dextrose in Water 50 ML Syringe IV PRN (23:02)
[2020-07-22] MEDS ORDERED: Glucagon,Human Recombinant 1 MG Vial IM PRN (23:02)
[2020-07-23] MEDS: IBRUTINIB 140 MG PO SCH (06:46)
[2020-07-23] MEDS ORDERED: Pantoprazole 40 MG Tab.CR PO SCH (07:30)
[2020-07-23 07:58] LABS: ANION GAP 13.5 mmol/L (5-15)
[2020-07-23] MEDS: Insulin Aspart 100 Units/ML 3 ML Pen SUBCUT SCH ×4 (08:05→21:50)
[2020-07-23] MEDS: Ascorbic Acid 500 MG Tab PO SCH ×2 (08:06→21:54)
[2020-07-23] MEDS: Apixaban 5 MG Tab PO SCH ×2 (08:06→21:55)
[2020-07-23] MEDS: Allopurinol 100 MG Tab PO SCH (08:06)
[2020-07-23] MEDS: Zinc (Zinc Gluconate) 50 MG Tab PO SCH (08:06)
[2020-07-23] MEDS: Sulfamethoxazole/Trimethoprim 800-160 MG Tab PO SCH (08:07)
[2020-07-23] MEDS: VENETOCLAX 100 MG PO SCH (08:07)
[2020-07-23] MEDS: Cholecalciferol (Vitamin D3) 25 MCG Tab PO SCH (08:07)
[2020-07-23] MEDS: Acyclovir 400 MG Tab PO SCH ×2 (08:07→21:55)
[2020-07-23] MEDS: Diltiazem 240 MG Cap.ER PO SCH (12:04)
--- NOTE | 2020-07-23 12:32 | PCM.HP.2 ---
H&P History of Present Illness - General Date of Service: 07/23/20 Admit Problem/Dx: Admission Diagnosis/Problem Admission Diagnosis/Problem Hypoxia Source of Information: Patient, Old Records, Provider (Petar Raza PA-C (ED provider)) History Limitations: Reports: No Limitations - History of Present Illness Initial Comments - Free Text/Narative: Mr. Bradford was in his usual state of health until 07/10/20 when he noted mild congestion and cough while elk hunting. In the subsequent days, had some fatigue, but otherwise felt he was at his baseline. Endorses chronic intermittent diarrhea and decreased appetite related to CLL and chemotherapeutics he is taking. Was seen 07/16/20 via telemedicine by KOTA Luna, and had COVID LumiraDX antigen test completed the following day, which was positive. Started on [place] home monitoring program and has been maintaining saturations and having stable symptoms until the day of admission when he noted his oxygen to persistently throughout the day remain in the 80s. For this reason, presented to the [facility] ED. In the ED, he was noted to be mildly hypoxic in the high 80s, but was unresponsive to oxygen via nasal cannula and eventually required use of mask and flow of 6lpm to maintain saturations. Evaluation included CBC, CMP, lactate, and CXR, which were notable for WBC 4.9 with 79% neutrophils, Na 131, Cr 1.29, and CXR showing left lower base parenchymal opacities and chronically right hemidiaphragm. After being called for admission and discussing patient care, obtained ABG and CTA which were overall reassuring; ABG 7.38/38/151-[address] angiogram with findings of COVID pneumonia with bilateral groundglass opacities. Oxygen requirement also decreased to 4lpm via nasal cannula. He was admitted and several standard COVID-19 admission labs were added on and normal, including troponin, CK, BNP, magnesium, CRP, ESR, and procalcitonin. This morning on rounds, he states that he overall feels improved from prior. Yesterday he felt intermittently short of breath and had a persistent cough, but otherwise had no concerns. Since admission, he has had improvement in cough and denies any shortness of breath today. Known family contacts (grandson, daughter, stepson, and ) also with COVID-19. Oxygen has remained stable in the low 90s on 4lpm via nasal cannula. No nursing concerns. - Related Data Allergies/Adverse Reactions: Allergies Allergy/AdvReac Type Severity Reaction Status Date / Time No Known Drug Allergies Allergy Other Verified 07/22/20 18:33 Home Medications: Home Meds Losartan [Cozaar] 100 mg PO BEDTIME 02/03/19 [History] Montelukast [Singulair] 10 mg PO BEDTIME 02/03/19 [History] metFORMIN HCl [Glucophage] 1,000 mg PO BID 02/03/19 [History] Cholecalciferol (Vitamin D3) [Vitamin D3] 2,000 unit PO BEDTIME 05/14/19 [History] Fluticasone Propionate [Flonase] 1 spray NASBOTH BID PRN 05/14/19 [History] Rosuvastatin Calcium [Crestor] 40 mg PO BEDTIME 05/14/19 [History] Ubidecarenone [Co Q-10] 200 mg PO BEDTIME 05/14/19 [History] Albuterol [Ventolin HFA] 1 puff IH DAILY PRN 12/09/19 [History] Pantoprazole Sodium [Protonix] 40 mg PO ACBREAKFAST 12/09/19 [History] Acyclovir [Zovirax] 400 mg PO BID 05/19/20 [History] Ibrutinib [Imbruvica] 140 mg PO ACBREAKFAST 05/19/20 [History] Sulfamethoxazole/Trimethoprim [Sulfamethoxazole-Tmp Ds Tablet] 1 each PO MOWEFR 05/19/20 [History] Apixaban [Eliquis] 5 mg PO BID #60 tablet 05/21/20 [Rx] Allopurinol [Zyloprim] 300 mg PO DAILY 07/22/20 [History] Codeine Phosphate/Guaifenesin [Guaiatussin AC Liquid] 5 ml PO Q4H PRN 07/22/20 [History] Diltiazem HCl [Diltiazem 24Hr Cd] 240 mg PO DAILY@1200 07/22/20 [History] Venetoclax [Venclexta] 200 mg PO DAILY 07/22/20 [History] Zinc Sulfate 220 mg PO DAILY 07/22/20 [History] methylPREDNISolone [Methylprednisolone] 4 mg PO BID 07/22/20 [History] Past Medical History HEENT History: Reports: Hard of Hearing, Impaired Vision Cardiovascular History: Reports: High Cholesterol, Hypertension Respiratory History: Reports: Asthma, Intubation, Difficult, Intubation, Previous, Other (See Below) Other Respiratory History: Restrictive lung disease Gastrointestinal History: Reports: GERD, Other (See Below) Other Gastrointestinal History: "loose stools from metformin" Genitourinary History: Reports: Other (See Below) Other Genitourinary History: renal mass Musculoskeletal History: Reports: Gout, Osteoarthritis Neurological History: Reports: Neuropathy, Peripheral Other Neuro History: Polyneuropathy stable Psychiatric History: Reports: None Endocrine/Metabolic History: Reports: Diabetes, Type II Hematologic History: Reports: Other (See Below) Other Hematologic History: current Vt D deficient Oncologic (Cancer) History: Reports: Leukemia, Renal, Other (See Below) Other Oncologic History: Chronic Lymphatic Leukemia Dermatologic History: Reports: None - Infectious Disease History Infectious Disease History: Reports: None, Chicken Pox, Measles, Mumps, Novel Coronavirus, Pertussis (Whooping Cough), Shingles - Past Surgical History HEENT Surgical History: Reports: Adenoidectomy, Tonsillectomy Cardiovascular Surgical History: Reports: None GI Surgical History: Reports: Appendectomy Male Surgical History: Reports: None Musculoskeletal Surgical History: Reports: Knee Replacement Other Musculoskeletal Surgeries/Procedures:: R Dermatological Surgical History: Reports: None Social & Family History - Family History Family Medical History: No Pertinent Family History - Tobacco Use Tobacco Use Status *Q: Former Tobacco User Used Tobacco, but Quit: Yes Month/Year Tobacco Last Used: 07/1989 - Caffeine Use Caffeine Use: Reports: None - Recreational Drug Use Recreational Drug Use: No H&P Review of Systems - Review of Systems: Review Of Systems: See Below General: Reports: Chills, Malaise, Weakness, Fatigue, Decreased Appetite, Weight Loss. Denies: Fever HEENT: Denies: Ear Pain, Headaches, Rhinitis, Post Nasal Drip, Sinus Congestion, Sore Throat Pulmonary: Reports: Cough. Denies: Shortness of Breath, Wheezing, Pleuritic Kathy st Pain, Hemoptysis Cardiovascular: Denies: Chest Pain, Palpitations, Edema, Lightheadedness Gastrointestinal: Reports: Diarrhea, Nausea. Denies: Abdominal Pain, Hematemesis, Hematochezia, Melena, Vomiting Genitourinary: Denies: Dysuria, Pain, Hematuria Musculoskeletal: Denies: Neck Pain, Joint Pain, Joint Swelling Skin: Denies: Jaundice, Rash, Wound Psychiatric: Denies: Confusion, Depression, Anxiety Neurological: Denies: Confusion, Headache, Numbness, Tingling Hematologic/Lymphatic: Reports: Easy Bleeding, Easy Bruising Exam - Exam Exam: See Below - Vital Signs Vital Signs: Last Vital Signs Temp 36.3 C 07/23/20 10:51 Pulse 69 07/23/20 10:51 Resp 16 07/23/20 10:51 BP 139/71 07/23/20 10:51 Pulse Ox 94 L 07/23/20 10:51 Weight: 89.358 kg - Exam Physical Exam Comments:: GENERAL: Well-appearing elderly white male sitting on hospital bed in no acute distress. HEENT: Normocephalic, atraumatic. Conjunctiva clear. Nasal cannula in place. Mucous membranes moist, posterior pharynx unremarkable. NECK: Supple, no masses. CV: Regular rate and rhythm, no murmurs, rubs, or gallops. 2+ radial pulses. PULMONARY: Normal effort, faint diffuse rhonchi, no wheezes or rales. ABDOMEN: Positive bowel sounds, soft, nontender, nondistended. EXTREMITIES: No edema, cyanosis, or clubbing. MUSCULOSKELETAL: Moves all extremities well. NEUROLOGICAL: No obvious deficits. DERMATOLOGIC: Scattered ecchymosis. No rashes or suspicious lesions in exposed areas. PSYCHIATRIC: Alert, interactive, appropriate affect. - Patient Data Lab Results Last 24 hrs: Laboratory Results - last 24 hr 07/22/20 07/22/20 07/22/20 Range/Units 18:19 18:19 18:19 WBC 4.90 L D (5.00-10.00) 10^3/uL RBC 5.12 (4.50-6.00) 10^6/uL Hgb 14.8 D (13.0-17.0) g/dL Hct 43.6 (40.0-52.0) % MCV 85.2 (82.0-92.0) fL MCH 28.9 (27.0-31.0) pg MCHC 33.9 (32.0-36.0) g/dL RDW 15.6 H (11.5-14.5) % Plt Count 169 (150-400) 10^3/uL MPV 10.7 H (7.4-10.4) fL Immature Gran % (Auto) 0.6 (0.0-5.0) % Neut % (Auto) 79.4 H (50.0-70.0) % Lymph % (Auto) 7.8 L (20.0-40.0) % [place] % (Auto) 12.0 H (2.0-8.0) % Eos % (Auto) 0.0 L (1.0-3.0) % Baso % (Auto) 0.2 (0.0-1.0) % Neut # (Auto) 3.89 (2.50-7.00) 10^3/uL Lymph # (Auto) 0.38 L (1.00-4.00) 10^3/uL [place] # (Auto) 0.59 (0.10-0.80) 10^3/uL Eos # (Auto) 0.00 L (0.10-0.30) 10^3/uL Baso # (Auto) 0.01 (0.00-0.10) 10^3/uL Immature Gran # (Auto) 0.03 (0.00-0.50) 10^3/uL PT (9.2-11.2) SEC INR (0.9-1.1) APTT (22.8-31.4) SEC D-Dimer, Quantitative (<400) ng/mL ABG pH (7.35-7.45) ABG pCO2 (35-45) mmHG ABG pO2 (80-105) mmHG ABG HCO3 (22-26) mmol/L ABG Total CO2 (23-27) mmol/L ABG O2 Saturation (95-98) % ABG Base Excess (-2-3) mmol/L O2 Delivery Device Sodium 131 L (136-145) mmol/L Potassium 4.2 (3.5-5.1) mmol/L Chloride 96 L (98-107) mmol/L Carbon Dioxide 24.4 (21.0-32.0) mmol/L Anion Gap 14.8 (5-15) mmol/L BUN 29 H (7-18) mg/dL Creatinine 1.29 H (0.51-1.17) mg/dL Est Cr Clr Drug Dosing 60.99 mL/min Estimated GFR (MDRD) 56 mL/min Glucose 209 H (70-140) mg/dL POC Glucose (74-100) mg/dL Lactic Acid 1.1 (0.4-2.0) mmol/L Calcium 9.4 (8.7-10.3) mg/dL Magnesium (1.8-2.4) mg/dL Total Bilirubin 0.8 (0.2-1.0) mg/dL AST 16 (15-37) U/L ALT 18 (14-63) U/L Alkaline Phosphatase 88 (46-116) U/L Creatine Kinase (26-276) U/L Troponin I (0.000-0.056) ng/mL C-Reactive Protein (0.0-0.9) mg/dL B-Natriuretic Peptide (0-100) pg/mL Total Protein 7.1 (6.4-8.2) g/dL Albumin 2.98 L (3.40-5.00) g/dL 07/22/20 07/22/20 07/22/20 Range/Units 20:35 20:40 20:40 WBC (5.00-10.00) 10^3/uL RBC (4.50-6.00) 10^6/uL Hgb (13.0-17.0) g/dL Hct (40.0-52.0) % MCV (82.0-92.0) fL MCH (27.0-31.0) pg MCHC (32.0-36.0) g/dL RDW (11.5-14.5) % Plt Count (150-400) 10^3/uL MPV (7.4-10.4) fL Immature Gran % (Auto) (0.0-5.0) % Neut % (Auto) (50.0-70.0) % Lymph % (Auto) (20.0-40.0) % [place] % (Auto) (2.0-8.0) % Eos % (Auto) (1.0-3.0) % Baso % (Auto) (0.0-1.0) % Neut # (Auto) (2.50-7.00) 10^3/uL Lymph # (Auto) (1.00-4.00) 10^3/uL [place] # (Auto) (0.10-0.80) 10^3/uL Eos # (Auto) (0.10-0.30) 10^3/uL Baso # (Auto) (0.00-0.10) 10^3/uL Immature Gran # (Auto) (0.00-0.50) 10^3/uL PT 9.6 (9.2-11.2) SEC INR 0.9 (0.9-1.1) APTT 32.7 H (22.8-31.4) SEC D-Dimer, Quantitative < 100 (<400) ng/mL ABG pH 7.38 (7.35-7.45) ABG pCO2 38 (35-45) mmHG ABG pO2 151 H* (80-105) mmHG ABG HCO3 22.7 (22-26) mmol/L ABG Total CO2 23 (23-27) mmol/L ABG O2 Saturation 99 H (95-98) % ABG Base Excess -2 (-2-3) mmol/L O2 Delivery Device Nasal cannula Sodium (136-145) mmol/L Potassium (3.5-5.1) mmol/L Chloride (98-107) mmol/L Carbon Dioxide (21.0-32.0) mmol/L Anion Gap (5-15) mmol/L BUN (7-18) mg/dL Creatinine (0.51-1.17) mg/dL Est Cr Clr Drug Dosing mL/min Estimated GFR (MDRD) mL/min Glucose (70-140) mg/dL POC Glucose (74-100) mg/dL Lactic Acid (0.4-2.0) mmol/L Calcium (8.7-10.3) mg/dL Magnesium 1.9 (1.8-2.4) mg/dL Total Bilirubin (0.2-1.0) mg/dL AST (15-37) U/L ALT (14-63) U/L Alkaline Phosphatase (46-116) U/L Creatine Kinase 46 (26-276) U/L Troponin I < 0.017 (0.000-0.056) ng/mL C-Reactive Protein 6.1 H (0.0-0.9) mg/dL B-Natriuretic Peptide 219 H (0-100) pg/mL Total Protein (6.4-8.2) g/dL Albumin (3.40-5.00) g/dL 07/23/20 07/23/20 07/23/20 Range/Units 07:28 07:28 08:04 WBC 2.85 L (5.00-10.00) 10^3/uL RBC 4.78 (4.50-6.00) 10^6/uL Hgb 13.7 (13.0-17.0) g/dL Hct 40.7 (40.0-52.0) % MCV 85.1 (82.0-92.0) fL MCH 28.7 (27.0-31.0) pg MCHC 33.7 (32.0-36.0) g/dL RDW 15.7 H (11.5-14.5) % Plt Count 171 (150-400) 10^3/uL MPV 10.8 H (7.4-10.4) fL Immature Gran % (Auto) 1.1 (0.0-5.0) % Neut % (Auto) 80.0 H (50.0-70.0) % Lymph % (Auto) 6.3 L (20.0-40.0) % [place] % (Auto) 11.9 H (2.0-8.0) % Eos % (Auto) 0.0 L (1.0-3.0) % Baso % (Auto) 0.7 (0.0-1.0) % Neut # (Auto) 2.28 L (2.50-7.00) 10^3/uL Lymph # (Auto) 0.18 L (1.00-4.00) 10^3/uL [place] # (Auto) 0.34 (0.10-0.80) 10^3/uL Eos # (Auto) 0.00 L (0.10-0.30) 10^3/uL Baso # (Auto) 0.02 (0.00-0.10) 10^3/uL Immature Gran # (Auto) 0.03 (0.00-0.50) 10^3/uL PT (9.2-11.2) SEC INR (0.9-1.1) APTT (22.8-31.4) SEC D-Dimer, Quantitative (<400) ng/mL ABG pH (7.35-7.45) ABG pCO2 (35-45) mmHG ABG pO2 (80-105) mmHG ABG HCO3 (22-26) mmol/L ABG Total CO2 (23-27) mmol/L ABG O2 Saturation (95-98) % ABG Base Excess (-2-3) mmol/L O2 Delivery Device Sodium 131 L (136-145) mmol/L Potassium 4.7 (3.5-5.1) mmol/L Chloride 97 L (98-107) mmol/L Carbon Dioxide 25.2 (21.0-32.0) mmol/L Anion Gap 13.5 (5-15) mmol/L BUN 34 H (7-18) mg/dL Creatinine 1.33 H (0.51-1.17) mg/dL Est Cr Clr Drug Dosing 59.16 mL/min Estimated GFR (MDRD) 54 mL/min Glucose 421 H (70-140) mg/dL POC Glucose 385 H (74-100) mg/dL Lactic Acid (0.4-2.0) mmol/L Calcium 8.5 L (8.7-10.3) mg/dL Magnesium 2.0 (1.8-2.4) mg/dL Total Bilirubin 0.5 (0.2-1.0) mg/dL AST 10 L (15-37) U/L ALT 16 (14-63) U/L Alkaline Phosphatase 83 (46-116) U/L Creatine Kinase (26-276) U/L Troponin I (0.000-0.056) ng/mL C-Reactive Protein 6.7 H (0.0-0.9) mg/dL B-Natriuretic Peptide (0-100) pg/mL Total Protein 6.4 (6.4-8.2) g/dL Albumin 2.65 L (3.40-5.00) g/dL 07/23/20 Range/Units 12:01 WBC (5.00-10.00) 10^3/uL RBC (4.50-6.00) 10^6/uL Hgb (13.0-17.0) g/dL Hct (40.0-52.0) % MCV (82.0-92.0) fL MCH (27.0-31.0) pg MCHC (32.0-36.0) g/dL RDW (11.5-14.5) % Plt Count (150-400) 10^3/uL MPV (7.4-10.4) fL Immature Gran % (Auto) (0.0-5.0) % Neut % (Auto) (50.0-70.0) % Lymph % (Auto) (20.0-40.0) % [place] % (Auto) (2.0-8.0) % Eos % (Auto) (1.0-3.0) % Baso % (Auto) (0.0-1.0) % Neut # (Auto) (2.50-7.00) 10^3/uL Lymph # (Auto) (1.00-4.00) 10^3/uL [place] # (Auto) (0.10-0.80) 10^3/uL Eos # (Auto) (0.10-0.30) 10^3/uL Baso # (Auto) (0.00-0.10) 10^3/uL Immature Gran # (Auto) (0.00-0.50) 10^3/uL PT (9.2-11.2) SEC INR (0.9-1.1) APTT (22.8-31.4) SEC D-Dimer, Quantitative (<400) ng/mL ABG pH (7.35-7.45) ABG pCO2 (35-45) mmHG ABG pO2 (80-105) mmHG ABG HCO3 (22-26) mmol/L ABG Total CO2 (23-27) mmol/L ABG O2 Saturation (95-98) % ABG Base Excess (-2-3) mmol/L O2 Delivery Device Sodium (136-145) mmol/L Potassium (3.5-5.1) mmol/L Chloride (98-107) mmol/L Carbon Dioxide (21.0-32.0) mmol/L Anion Gap (5-15) mmol/L BUN (7-18) mg/dL Creatinine (0.51-1.17) mg/dL Est Cr Clr Drug Dosing mL/min Estimated GFR (MDRD) mL/min Glucose (70-140) mg/dL POC Glucose 406 H* (74-100) mg/dL Lactic Acid (0.4-2.0) mmol/L Calcium (8.7-10.3) mg/dL Magnesium (1.8-2.4) mg/dL Total Bilirubin (0.2-1.0) mg/dL AST (15-37) U/L ALT (14-63) U/L Alkaline Phosphatase (46-116) U/L Creatine Kinase (26-276) U/L Troponin I (0.000-0.056) ng/mL C-Reactive Protein (0.0-0.9) mg/dL B-Natriuretic Peptide (0-100) pg/mL Total Protein (6.4-8.2) g/dL Albumin (3.40-5.00) g/dL Result Diagrams: 07/23/20 07:28 07/23/20 07:28 Sepsis Event Note - Evaluation Sepsis Screening Result: No Definite Risk - Focused Exam Vital Signs: Vital Signs Temp Pulse Resp BP Pulse Ox 07/23/20 10:51 36.3 C 69 16 139/71 94 L 07/23/20 06:14 61 20 123/69 93 L 07/23/20 02:50 36.2 C 58 L 20 118/62 92 L Problem List Initiated/Reviewed/Updated: Yes Orders Last 24hrs: Active Orders 24 hr Category Date Time Status Patient Status [ADT] Routine ADT 07/22/20 21:59 Active Blood Glucose Check, Bedside [RC] WITHMEALSANDBED Care 07/22/20 23:03 Active Dietary Supplements [RC] BIDAC Care 07/23/20 07:46 Active Notify Provider Vital Signs [RC] ASDIRECTED Care 07/22/20 23:06 Active Oxygen Therapy [RC] .PRN Care 07/22/20 21:59 Active Telemetry Monitoring [Cardiac Monitoring] [RC] 03,07,11 Care 07/22/20 23:08 Active ,15,19,23 VTE/DVT Education [RC] DAILY Care 07/22/20 21:59 Active Vital Signs [RC] Q4H Care 07/22/20 21:59 Active ADA Diabetic [[place] [employer] Diet] [DIET Diet 07/23/20 Breakfast Active ] C-REACTIVE PROTEIN [CHEM] AM Lab 07/24/20 05:11 Ordered C-REACTIVE PROTEIN [CHEM] AM Lab 07/25/20 05:11 Ordered C-REACTIVE PROTEIN [CHEM] AM Lab 07/26/20 05:11 Ordered CBC WITH AUTO DIFF [HEME] AM Lab 07/24/20 05:11 Ordered CBC WITH AUTO DIFF [HEME] AM Lab 07/25/20 05:11 Ordered CBC WITH AUTO DIFF [HEME] AM Lab 07/26/20 05:11 Ordered COMPREHENSIVE METABOLIC PN,CMP [CHEM] AM Lab 07/24/20 05:11 Ordered COMPREHENSIVE METABOLIC PN,CMP [CHEM] AM Lab 07/25/20 05:11 Ordered COMPREHENSIVE METABOLIC PN,CMP [CHEM] AM Lab 07/26/20 05:11 Ordered MG [MAGNESIUM] [CHEM] AM Lab 07/24/20 05:11 Ordered MG [MAGNESIUM] [CHEM] AM Lab 07/25/20 05:11 Ordered MG [MAGNESIUM] [CHEM] AM Lab 07/26/20 05:11 Ordered PROCALCITONIN [REF] Stat Lab 07/22/20 20:40 Received SED RATE [REF] Stat Lab 07/22/20 20:40 Received Acyclovir [Zovirax] Med 07/23/20 09:00 Active 400 mg PO BID Apixaban [Eliquis] Med 07/23/20 09:00 Active 5 mg PO BID Ascorbic Acid [Vitamin C] Med 07/23/20 09:00 Active 1,000 mg PO BID Cholecalciferol (Vitamin D3) [Vitamin D3] Med 07/23/20 09:00 Active 25 mcg PO DAILY Dextrose 50% in Water Med 07/22/20 23:02 Active 50 ml IV ASDIRECTED PRN Diltiazem [Dilacor XR] Med 07/23/20 12:00 Active 240 mg PO DAILY@1200 Fluticasone Propionate [Flonase] Med 07/22/20 22:57 Active 0 gm NASBOTH BID PRN Glucagon,Human Recombinant [GlucaGen] Med 07/22/20 23:02 Active 1 mg IM ASDIRECTED PRN Ibrutinib [Imbruvica] Med 07/23/20 07:30 Active 140 mg PO ACBREAKFAST Insulin Aspart [NovoLOG] Med 07/23/20 08:00 Active See Protocol SUBCUT WITHMEALSANDBED Losartan [Cozaar] Med 07/23/20 21:00 Active 100 mg PO BEDTIME Montelukast [Singulair] Med 07/23/20 21:00 Active 10 mg PO BEDTIME Pantoprazole [ProTONIX] Med 07/24/20 07:00 Active 40 mg PO DAILY@0700 Patient's Own Medication [Ptom] Med 07/23/20 09:00 Active 2 each PO DAILY Remdesivir 100 mg Med 07/23/20 21:00 Active Sodium Chloride 0.9% [Normal Saline] 250 ml IV Q24H Rosuvastatin [Crestor] Med 07/23/20 21:00 Active 40 mg PO BEDTIME Sulfamethoxazole/Trimethoprim [Septra DS] Med 07/23/20 09:00 Active 1 tab PO MoWeFr@0900 Zinc Gluconate [Zinc] Med 07/23/20 09:00 Active 100 mg PO DAILY allopurinoL [Zyloprim] Med 07/23/20 09:00 Active 300 mg PO DAILY dexAMETHasone Med 07/23/20 12:30 Ordered 6 mg PO DAILY Peripheral IV Insertion Adult [OM.PC] Routine Oth 07/22/20 18:35 Ordered Resuscitation Status Routine Resus Stat 07/22/20 21:59 Ordered Medication Orders Acyclovir (Zovirax) 400 mg PO BID [facility] Last Admin: 07/23/20 08:07 Dose: 400 mg Documented by: MITCHELL Allopurinol (Zyloprim) 300 mg PO DAILY [facility] Last Admin: 07/23/20 08:06 Dose: 300 mg Documented by: MITCHELL Apixaban (Eliquis) 5 mg PO BID [facility] Last Admin: 07/23/20 08:06 Dose: 5 mg Documented by: MITCHELL Ascorbic Acid (Vitamin C) 1,000 mg PO BID [facility] Last Admin: 07/23/20 08:06 Dose: 1,000 mg Documented by: MITCHELL Cholecalciferol (Vitamin D3) 25 mcg PO DAILY [facility] Last Admin: 07/23/20 08:07 Dose: 25 mcg Documented by: MITCHELL Dexamethasone (Dexamethasone) 6 mg PO DAILY [facility] Dextrose/Water (Dextrose 50% In Water) 50 ml IV ASDIRECTED PRN PRN Reason: Hypoglycemia Diltiazem HCl (Dilacor Xr) 240 mg PO DAILY@1200 [facility] Last Admin: 07/23/20 12:04 Dose: 240 mg Documented by: MITCHELL Fluticasone Propionate (Flonase) 0 gm NASBOTH BID PRN PRN Reason: Allergies Glucagon (Glucagen) 1 mg IM ASDIRECTED PRN PRN Reason: Hypoglycemia Remdesivir 100 mg/ Sodium (Chloride) 250 mls @ 250 mls/hr IV Q24H [facility] Stop: 07/26/20 21:59 Insulin Aspart (Novolog) 0 unit SUBCUT WITHMEALSANDBED [facility]; Protocol Last Admin: 07/23/20 12:02 Dose: 5 units Documented by: Admin: 07/23/20 08:05 Dose: 5 units Documented by: MITCHELL Losartan Potassium (Cozaar) 100 mg PO BEDTIME [facility] Montelukast Sodium (Singulair) 10 mg PO BEDTIME [facility] Ibrutinib [Imbruvica ] 140 Mg [employer] Med 140 mg PO ACBREAKFAST [facility] Last Admin: 07/23/20 06:46 Dose: 140 mg Documented by: YO Pantoprazole Sodium (Protonix) 40 mg PO DAILY@0700 [facility] Venetoclax 100mg (Tablet - Ptom) 2 each PO DAILY [facility] Last Admin: 07/23/20 08:07 Dose: 2 each Documented by: MITCHELL Rosuvastatin Calcium (Crestor) 40 mg PO BEDTIME [facility] Trimethoprim/Sulfamethoxazole (Septra Ds) 1 tab PO MoWeFr@0900 [facility] Last Admin: 07/23/20 08:07 Dose: 1 tab Documented by: MITCHELL Zinc Gluconate (Zinc) 100 mg PO DAILY [facility] Last Admin: 07/23/20 08:06 Dose: 100 mg Documented by: MITCHELL Assessment/Plan Comment:: HPI summary: Mr. Bradford is a 69yoM with a history notable for CLL on chemotherapy, DMT2, and PAF on anticoagulation who was in his usual state of health until 07/10/20 when he noted mild congestion and cough while elk hunting. In the subsequent days, had some fatigue, but otherwise felt he was at his baseline. Endorsed chronic intermittent diarrhea and decreased appetite related to CLL and chemotherapy he is taking. Was seen 07/16/20 via telemedicine by KOTA Luna, and had [employer] LumiraDX antigen test completed the following day, which was positive. Started on [place] home monitoring program, started Medrol dose pack on 07/17/20 and received bamlanivimab on 07/18/20. Had been maintaining saturations and having stable symptoms until the day of admission when he noted his oxygen to persistently throughout the day remain in the 80s. For this reason, presented to the [facility] ED. ED course: In the ED, he was noted to be mildly hypoxic in the high 80s, but was unresponsive to oxygen via nasal cannula and eventually required use of mask and flow of 6lpm to maintain saturations. Evaluation included CBC, CMP, lactate, and CXR, which were notable for WBC 4.9 with 79% neutrophils, Na 131, Cr 1.29, and CXR showing left lower base parenchymal opacities and chronically right hemidiaphragm. After being called for admission and discussing patient care, obtained ABG and CTA which were overall reassuring; ABG 7.38/38/151-[address] angiogram with findings of COVID pneumonia with bilateral groundglass opacities and no evidence of clot. Oxygen requirement also decreased to 4lpm via nasal cannula. He was admitted. Ordered remdisivir loading dose and dexamethasone 6mg. Several standard COVID-19 admission labs were added on and normal, including troponin, CK, BNP, magnesium, CRP, ESR, and procalcitonin. Hospital course: 07/23/19: Clinically improved with resolved shortness of breath and improved cough. VS normal except requiring 4lpm oxygen via nasal cannula. Daily COVID labs reassuring. Procalcitonin and remainder of admission COVID add-on labs also normal. BGs elevated related to dexamethasone. Mild hyponatremia likely secondary to hypovolemia for which patient wishes to increase oral intake throughout the day and recheck tomorrow before starting IVF. Notified patient's primary oncologist, Dr. Chavis of status; no specific treatment changes recommended regarding his CLL and current chemotherapy status. Hospitalization problems and plan: # Acute hypoxic respiratory failure # COVID-19 pneumonia - Wean oxygen as able to maintain saturations 90% - Remdisivir 100mg daily (5th dose scheduled 07/26/20) - Dexamethasone 6mg daily (10th day of steroids and 5th day of dexamethasone 07/26/20) - Vitamin C, vitamin D, and zinc - Daily CBC, CMP, Mg, CRP # DMT2: 07/11/20 A1c 6.2%. BGs as high as the 300s since admission. - QID BG with insulin aspart sliding scale moderate correction - Hold metformin 1000mg BID due to contrast scan on 07/22/20 # Hyponatremia: Likely secondary to hypovolemia. - Encourage oral fluids and reassess on repeat lab tomorrow # Protein calorie malnutrition: 20# weight loss in the past month related to chemotherapy regimen. 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 Evidence of progression in February 2020 with severe fatigue, lymphadenopathy, and splenomegaly. Continue shadi etoclax, ibrutinib, acyclovir, and TMP-SMX. 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 # Paroxysmal atrial fibrillation: Admission EKG and telemetry with sinus rhythm since admission. Continue diltiazem 240mg daily and apixaban. # HTN: Controlled. Continue losartan 100mg daily. # GERD: Controlled. Continue pantoprazole 40mg daily. # CKD, stage 3a: Baseline GFR 55. # HLD: Continue rosuvastatin 40mg daily. Holding CoQ10. # Vitamin D deficiency: Continue vitamin D 2000un daily. # Gout: No recent flares. Continue allopurinol 100mg daily. # Seasonal allergies: Controlled. Continue montelukast 10mg HS, Flonase prn. Hospitalization details: # FEN: No IVF. Electrolytes normal except above. Diabetic diet. # PPX: On apixaban sufficient for DVT ppx. # Code status: FULL. # Emergency contact: , who patient stated he would update following rounds. # Disposition: Admit to inpatient status for monitoring and management of acute hypoxic respiratory failure and COVID-19 pneumonia. Anticipate 4 night stay to complete course of remdisivir and discharge back to home.
[2020-07-23] MEDS: Dexamethasone 4 MG Tab PO SCH (14:58)
[2020-07-23] MEDS ORDERED: Non-Formulary Medication 1 Each (Cholecalciferol (Vitamin D3) [Vitamin D3] 2,000 UNIT) PO SCH (21:00)
[2020-07-23] MEDS ORDERED: REMDESIVIR 100 MG in Sodium Chloride 0.9% 250 ML IV SCH (21:00)
[2020-07-23] MEDS: Sodium Chloride 0.9% 50 ML IV SCH (21:42)
[2020-07-23] MEDS: Losartan 50 MG Tab PO SCH (21:53)
[2020-07-23] MEDS: Rosuvastatin 10 MG Tab PO SCH (21:54)
[2020-07-23] MEDS: Montelukast 10 MG Tab PO SCH (21:55)
[2020-07-24] MEDS: Pantoprazole 40 MG Tab.CR PO SCH (06:47)
[2020-07-24] MEDS: IBRUTINIB 140 MG PO SCH (07:41)
[2020-07-24 08:03] LABS: ANION GAP 12.1 mmol/L (5-15)
[2020-07-24] MEDS: Insulin Aspart 100 Units/ML 3 ML Pen SUBCUT SCH ×4 (08:20→21:31)
[2020-07-24] MEDS: Zinc (Zinc Gluconate) 50 MG Tab PO SCH (08:22)
[2020-07-24] MEDS: Apixaban 5 MG Tab PO SCH ×2 (08:22→21:35)
[2020-07-24] MEDS: Acyclovir 400 MG Tab PO SCH ×2 (08:23→21:35)
[2020-07-24] MEDS: Allopurinol 100 MG Tab PO SCH (08:23)
[2020-07-24] MEDS: VENETOCLAX 100 MG PO SCH (08:25)
[2020-07-24] MEDS: Cholecalciferol (Vitamin D3) 25 MCG Tab PO SCH (08:27)
[2020-07-24] MEDS: Ascorbic Acid 500 MG Tab PO SCH ×2 (08:27→21:34)
[2020-07-24] MEDS: Dexamethasone 4 MG Tab PO SCH (08:28)
[2020-07-24] MEDS ORDERED: Glucagon,Human Recombinant 1 MG Vial IM PRN (10:03)
[2020-07-24] MEDS ORDERED: 50% Dextrose in Water 50 ML Syringe IV PRN (10:03)
--- NOTE | 2020-07-24 10:09 | PCM.PN ---
- General Info Date of Service: 07/24/20 Functional Status: Reports: Pain Controlled, Tolerating Diet, Urinating, Incentive Spirometry (1400 mL on ICS). Denies: Ambulating, New Symptoms - Review of Systems General: Reports: Weakness. Denies: Fever, Malaise, Chills, Night Sweats HEENT: Reports: Other (hoarse voice, likely steroid-induced) Pulmonary: Reports: Shortness of Breath. Denies: Sputum, Hemoptysis, Wheezing Cardiovascular: Denies: Chest Pain, Palpitations, Orthopnea, PND, Edema Gastrointestinal: Reports: No Symptoms Genitourinary: Reports: No Symptoms Musculoskeletal: Reports: No Symptoms Skin: Reports: No Symptoms Neurological: Denies: Dizziness, Headache, Numbness, Seizure, Syncope, Tingling Psychiatric: Reports: No Symptoms - Patient Data Vitals - Most Recent: Last Vital Signs Temp 97.1 F 07/24/20 07:00 Pulse 52 L 07/24/20 07:00 Resp 16 07/24/20 07:00 BP 111/68 07/24/20 07:00 Pulse Ox 95 07/24/20 07:00 Weight - Most Recent: 197 lb I&O - Last 24 Hours: Intake & Output 07/23/20 07/24/20 07/24/20 22:59 06:59 14:59 Intake Total 840 490 Balance 840 490 Lab Results Last 24 Hours: Laboratory Results - last 24 hr 07/22/20 07/23/20 07/23/20 Range/Units 20:40 08:04 12:01 WBC (5.00-10.00) 10^3/uL RBC (4.50-6.00) 10^6/uL Hgb (13.0-17.0) g/dL Hct (40.0-52.0) % MCV (82.0-92.0) fL MCH (27.0-31.0) pg MCHC (32.0-36.0) g/dL RDW (11.5-14.5) % Plt Count (150-400) 10^3/uL MPV (7.4-10.4) fL Immature Gran % (Auto) (0.0-5.0) % Neut % (Auto) (50.0-70.0) % Lymph % (Auto) (20.0-40.0) % [place] % (Auto) (2.0-8.0) % Eos % (Auto) (1.0-3.0) % Baso % (Auto) (0.0-1.0) % Neut # (Auto) (2.50-7.00) 10^3/uL Lymph # (Auto) (1.00-4.00) 10^3/uL [place] # (Auto) (0.10-0.80) 10^3/uL Eos # (Auto) (0.10-0.30) 10^3/uL Baso # (Auto) (0.00-0.10) 10^3/uL Immature Gran # (Auto) (0.00-0.50) 10^3/uL Sodium (136-145) mmol/L Potassium (3.5-5.1) mmol/L Chloride (98-107) mmol/L Carbon Dioxide (21.0-32.0) mmol/L Anion Gap (5-15) mmol/L BUN (7-18) mg/dL Creatinine (0.51-1.17) mg/dL Est Cr Clr Drug Dosing mL/min Estimated GFR (MDRD) mL/min Glucose (70-140) mg/dL POC Glucose 385 H 406 H* (74-100) mg/dL Calcium (8.7-10.3) mg/dL Magnesium (1.8-2.4) mg/dL Total Bilirubin (0.2-1.0) mg/dL AST (15-37) U/L ALT (14-63) U/L Alkaline Phosphatase (46-116) U/L C-Reactive Protein (0.0-0.9) mg/dL Total Protein (6.4-8.2) g/dL Albumin (3.40-5.00) g/dL Procalcitonin 0.07 ng/mL 07/23/20 07/23/20 07/24/20 Range/Units 18:03 21:50 07:25 WBC 3.57 L (5.00-10.00) 10^3/uL RBC 4.75 (4.50-6.00) 10^6/uL Hgb 13.4 (13.0-17.0) g/dL Hct 40.7 (40.0-52.0) % MCV 85.7 (82.0-92.0) fL MCH 28.2 (27.0-31.0) pg MCHC 32.9 (32.0-36.0) g/dL RDW 15.5 H (11.5-14.5) % Plt Count 212 (150-400) 10^3/uL MPV 11.0 H (7.4-10.4) fL Immature Gran % (Auto) 1.7 (0.0-5.0) % Neut % (Auto) 76.7 H (50.0-70.0) % Lymph % (Auto) 10.4 L (20.0-40.0) % [place] % (Auto) 10.9 H (2.0-8.0) % Eos % (Auto) 0.0 L (1.0-3.0) % Baso % (Auto) 0.3 (0.0-1.0) % Neut # (Auto) 2.74 (2.50-7.00) 10^3/uL Lymph # (Auto) 0.37 L (1.00-4.00) 10^3/uL [place] # (Auto) 0.39 (0.10-0.80) 10^3/uL Eos # (Auto) 0.00 L (0.10-0.30) 10^3/uL Baso # (Auto) 0.01 (0.00-0.10) 10^3/uL Immature Gran # (Auto) 0.06 (0.00-0.50) 10^3/uL Sodium (136-145) mmol/L Potassium (3.5-5.1) mmol/L Chloride (98-107) mmol/L Carbon Dioxide (21.0-32.0) mmol/L Anion Gap (5-15) mmol/L BUN (7-18) mg/dL Creatinine (0.51-1.17) mg/dL Est Cr Clr Drug Dosing mL/min Estimated GFR (MDRD) mL/min Glucose (70-140) mg/dL POC Glucose 280 H 387 H (74-100) mg/dL Calcium (8.7-10.3) mg/dL Magnesium (1.8-2.4) mg/dL Total Bilirubin (0.2-1.0) mg/dL AST (15-37) U/L ALT (14-63) U/L Alkaline Phosphatase (46-116) U/L C-Reactive Protein (0.0-0.9) mg/dL Total Protein (6.4-8.2) g/dL Albumin (3.40-5.00) g/dL Procalcitonin ng/mL 07/24/20 07/24/20 Range/Units 07:25 07:38 WBC (5.00-10.00) 10^3/uL RBC (4.50-6.00) 10^6/uL Hgb (13.0-17.0) g/dL Hct (40.0-52.0) % MCV (82.0-92.0) fL MCH (27.0-31.0) pg MCHC (32.0-36.0) g/dL RDW (11.5-14.5) % Plt Count (150-400) 10^3/uL MPV (7.4-10.4) fL Immature Gran % (Auto) (0.0-5.0) % Neut % (Auto) (50.0-70.0) % Lymph % (Auto) (20.0-40.0) % [place] % (Auto) (2.0-8.0) % Eos % (Auto) (1.0-3.0) % Baso % (Auto) (0.0-1.0) % Neut # (Auto) (2.50-7.00) 10^3/uL Lymph # (Auto) (1.00-4.00) 10^3/uL [place] # (Auto) (0.10-0.80) 10^3/uL Eos # (Auto) (0.10-0.30) 10^3/uL Baso # (Auto) (0.00-0.10) 10^3/uL Immature Gran # (Auto) (0.00-0.50) 10^3/uL Sodium 132 L (136-145) mmol/L Potassium 4.4 (3.5-5.1) mmol/L Chloride 100 (98-107) mmol/L Carbon Dioxide 24.3 (21.0-32.0) mmol/L Anion Gap 12.1 (5-15) mmol/L BUN 42 H (7-18) mg/dL Creatinine 1.40 H (0.51-1.17) mg/dL Est Cr Clr Drug Dosing 56.20 mL/min Estimated GFR (MDRD) 51 mL/min Glucose 352 H (70-140) mg/dL POC Glucose 333 H (74-100) mg/dL Calcium 8.9 (8.7-10.3) mg/dL Magnesium 2.1 (1.8-2.4) mg/dL Total Bilirubin 0.4 (0.2-1.0) mg/dL AST 12 L (15-37) U/L ALT 18 (14-63) U/L Alkaline Phosphatase 74 (46-116) U/L C-Reactive Protein 4.3 H (0.0-0.9) mg/dL Total Protein 6.2 L (6.4-8.2) g/dL Albumin 2.60 L (3.40-5.00) g/dL Procalcitonin ng/mL Med Orders - Current: Current Medications Acyclovir (Zovirax) 400 mg PO BID [facility] Last Admin: 07/24/20 08:23 Dose: 400 mg Documented by: Allopurinol (Zyloprim) 300 mg PO DAILY [facility] Last Admin: 07/24/20 08:23 Dose: 300 mg Documented by: Apixaban (Eliquis) 5 mg PO BID [facility] Last Admin: 07/24/20 08:22 Dose: 5 mg Documented by: Ascorbic Acid (Vitamin C) 1,000 mg PO BID [facility] Last Admin: 07/24/20 08:27 Dose: 1,000 mg Documented by: Cholecalciferol (Vitamin D3) 25 mcg PO DAILY [facility] Last Admin: 07/24/20 08:27 Dose: 25 mcg Documented by: Dexamethasone (Dexamethasone) 6 mg PO DAILY [facility] Last Admin: 07/24/20 08:28 Dose: 6 mg Documented by: Dextrose/Water (Dextrose 50% In Water) 50 ml IV ASDIRECTED PRN PRN Reason: Hypoglycemia Diltiazem HCl (Dilacor Xr) 240 mg PO DAILY@1200 [facility] Last Admin: 07/23/20 12:04 Dose: 240 mg Documented by: Fluticasone Propionate (Flonase) 0 gm NASBOTH BID PRN PRN Reason: Allergies Glucagon (Glucagen) 1 mg IM ASDIRECTED PRN PRN Reason: Hypoglycemia Sodium Chloride (Normal Saline) 50 mls @ 125 mls/hr IV ASDIRECTED [facility] Last Admin: 07/23/20 21:42 Dose: 125 mls/hr Documented by: Remdesivir 100 mg/ Sodium (Chloride) 250 mls @ 250 mls/hr IV 1900 [facility] Stop: 07/24/20 19:59 Remdesivir 100 mg/ Sodium (Chloride) 250 mls @ 250 mls/hr IV 1500 [facility] Stop: 07/25/20 15:59 Remdesivir 100 mg/ Sodium (Chloride) 250 mls @ 250 mls/hr IV 1300 [facility] Stop: 07/26/20 13:59 Insulin Aspart (Novolog) 0 unit SUBCUT WITHMEALSANDBED [facility]; Protocol Last Admin: 07/24/20 08:20 Dose: 8 units Documented by: Losartan Potassium (Cozaar) 100 mg PO BEDTIME [facility] Last Admin: 07/23/20 21:53 Dose: 100 mg Documented by: Montelukast Sodium (Singulair) 10 mg PO BEDTIME [facility] Last Admin: 07/23/20 21:55 Dose: 10 mg Documented by: Ibrutinib [Imbruvica ] 140 Mg CapOwn Med 140 mg PO ACBREAKFAST [facility] Last Admin: 07/24/20 07:41 Dose: 140 mg Documented by: Pantoprazole Sodium (Protonix) 40 mg PO DAILY@0700 [facility] Last Admin: 07/24/20 06:47 Dose: 40 mg Documented by: Venetoclax 100mg (Tablet - Ptom) 2 each PO DAILY [facility] Last Admin: 07/24/20 08:25 Dose: 2 each Documented by: Rosuvastatin Calcium (Crestor) 40 mg PO BEDTIME [facility] Last Admin: 07/23/20 21:54 Dose: 40 mg Documented by: Trimethoprim/Sulfamethoxazole (Septra Ds) 1 tab PO MoWeFr@0900 [facility] Last Admin: 07/23/20 08:07 Dose: 1 tab Documented by: Zinc Gluconate (Zinc) 100 mg PO DAILY [facility] Last Admin: 07/24/20 08:22 Dose: 100 mg Documented by: Discontinued Medications Dexamethasone (Decadron) 6 mg IVPUSH ONETIME ONE Stop: 07/22/20 20:00 Last Admin: 07/22/20 20:00 Dose: 6 mg Documented by: Remdesivir 200 mg/ Sodium (Chloride) 250 mls @ 250 mls/hr IV ONETIME ONE Stop: 07/22/20 18:55 Last Admin: 07/22/20 22:00 Dose: 250 mls/hr Documented by: Dexamethasone 6 mg/ Sodium (Chloride) 101.5 mls @ 231.618 mls/hr IV ASDIRECTED ESAU Sodium Chloride (Normal Saline) 1,000 mls @ 150 mls/hr IV ASDIRECTED [facility] Last Admin: 07/22/20 19:40 Dose: 150 mls/hr Documented by: Sodium Chloride (Normal Saline) 100 mls @ 200 mls/min IV ASDIRECTED [facility] Last Admin: 07/22/20 21:19 Dose: 200 mls/min Documented by: Remdesivir 100 mg/ Sodium (Chloride) 250 mls @ 250 mls/hr IV Q24H [facility] Stop: 07/26/20 21:59 Last Admin: 07/23/20 21:44 Dose: 250 mls/hr Documented by: Iopamidol (Isovue-370 (76%)) 75 ml IVPUSH ONETIME ONE Stop: 07/22/20 20:28 Last Admin: 07/22/20 21:19 Dose: 75 ml Documented by: Non-Formulary Medication (Cholecalciferol (Vitamin D3) [Vitamin D3]) 2,000 unit PO BEDTIME [facility] Ondansetron HCl (Zofran) 4 mg IVPUSH ONETIME ONE Stop: 07/22/20 19:46 Last Admin: 07/22/20 19:57 Dose: 4 mg Documented by: Sodium Chloride (Saline Flush) 10 ml FLUSH Q8HR PRN PRN Reason: keep vein open Last Admin: 07/22/20 18:19 Dose: 10 ml Documented by: - Exam Quality Assessment: Supplemental Oxygen (4 lpm Oxygen) General: Alert, Oriented, Cooperative, No Acute Distress Neck: No JVD Lungs: Rhonchi (left lower posterior). No: Crackles, Rales, Stridor, Wheezing Cardiovascular: Regular Rate, Regular Rhythm, No Murmurs GI/Abdominal Exam: Normal Bowel Sounds, Soft, No Distention (Male) Exam: No: Rash Extremities: No Pedal Edema Peripheral Pulses: 2+: Radial (L), Radial (R) Skin: Warm, Dry, Intact Neurological: No New Focal Deficit Psy/Mental Status: Alert, Normal Affect, Normal Mood Sepsis Event Note - Evaluation Sepsis Screening Result: No Definite Risk - Focused Exam Vital Signs: Vital Signs Temp Pulse Resp BP BP Pulse Ox 07/24/20 07:00 97.1 F 52 L 16 111/68 95 07/24/20 03:00 97.5 F 51 L 16 101/59 L 95 07/23/20 23:00 97.4 F 66 16 124/75 96 07/23/20 21:53 124/75 - Problem List Review Problem List Initiated/Reviewed/Updated: Yes - Plan Plan:: HPI summary: Mr. Bradford is a 69yoM with a history notable for CLL on chemotherapy, DMT2, and PAF on anticoagulation who was in his usual state of health until 07/10/20 when he noted mild congestion and cough while elk hunting. In the subsequent days, had some fatigue, but otherwise felt he was at his baseline. Endorsed chronic intermittent diarrhea and decreased appetite related to CLL and chemotherapy he is taking. Was seen 07/16/20 via telemedicine by KOTA Luna, and had COVID LumiraDX antigen test completed the following day, which was positive. Started on [facility] home monitoring program, started Medrol dose pack on 07/17/20 and received bamlanivimab on 07/18/20. Had been maintaining saturations and having stable symptoms until the day of admission when he noted his oxygen to persistently throughout the day remain in the 80s. For this reason, presented to the [facility] ED. ED course: In the ED, he was noted to be mildly hypoxic in the high 80s, but was unresponsive to oxygen via nasal cannula and eventually required use of mask and flow of 6lpm to maintain saturations. Evaluation included CBC, CMP, lactate, and CXR, which were notable for WBC 4.9 with 79% neutrophils, Na 131, Cr 1.29, and CXR showing left lower base parenchymal opacities and chronically right hemidiaphragm. After being called for admission and discussing patient care, obtained ABG and CTA which were overall reassuring; ABG 7.38/38/151-[address] angiogram with findings of COVID pneumonia with bilateral groundglass opacities and no evidence of clot. Oxygen requirement also decreased to 4lpm via nasal cannula. He was admitted. Ordered remdisivir loading dose and dexamethasone 6mg. Several standard COVID-19 admission labs were added on and normal, including troponin, CK, BNP, magnesium, CRP, ESR, and procalcitonin. Hospital course: 07/23/19: Clinically improved with resolved shortness of breath and improved cough. VS normal except requiring 4lpm oxygen via nasal cannula. Daily COVID labs reassuring. Procalcitonin and remainder of admission COVID add-on labs also normal. BGs elevated related to dexamethasone. Mild hyponatremia likely secondary to hypovolemia for which patient wishes to increase oral intake throughout the day and recheck tomorrow before starting IVF. Notified patient's primary oncologist, Dr. Chavis of status; no specific treatment changes recommended regarding his CLL and current chemotherapy status. 07/24/2020: Hoarse voice today likely steroid-induced, no fever, mild cough, O2 sats mid 90s with 4 L nasal cannula oxygen, hyperglycemia, 1400 mL on incentive spirometer, Hospitalization problems and plan: # Acute hypoxic respiratory failure, stable # COVID-19 pneumonia - Wean oxygen as able to maintain saturations 90% - Aggressive Pulm toilet - Remdisivir 100mg daily (5th dose scheduled 07/26/20) - Dexamethasone 6mg daily (10th day of steroids and 5th day of dexamethasone 07/26/20) - Vitamin C, vitamin D, and zinc - Daily CBC, CMP, Mg, CRP # DMT2: 07/11/20 A1c 6.2%. BGs as high as the 300s since admission. - add Daily Lantus, cont QID BG with insulin aspart sliding scale moderate correction - Hold metformin 1000mg BID due to contrast scan on 07/22/20 # Hyponatremia: Likely secondary to hypovolemia. - Encourage oral fluids and reassess on repeat lab tomorrow # Protein calorie malnutrition: 20# weight loss in the past month related to chemotherapy regimen. 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 Evidence of progression in February 2020 with severe fatigue, lymphadenopathy, and splenomegaly. Continue venetoclax, ibrutinib, acyclovir, and TMP-SMX. 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 # Paroxysmal atrial fibrillation: Admission EKG and telemetry with sinus rhythm since admission. Continue diltiazem 240mg daily and apixaban. # HTN: Controlled. Continue losartan 100mg daily. # GERD: Controlled. Continue pantoprazole 40mg daily. # CKD, stage 3a: Baseline GFR 55. # HLD: Continue rosuvastatin 40mg daily. Holding CoQ10. # Vitamin D deficiency: Continue vitamin D 2000un daily. # Gout: No recent flares. Continue allopurinol 100mg daily. # Seasonal allergies: Controlled. Continue montelukast 10mg HS, Flonase prn. Hospitalization details: # FEN: No IVF. Electrolytes normal except above. Diabetic diet. # PPX: On apixaban sufficient for DVT ppx. # Code status: FULL. # Emergency contact: , who patient stated he would update following rounds. # Disposition: Admit to inpatient status for monitoring and management of acute hypoxic respiratory failure and COVID-19 pneumonia. Anticipate 4 night stay to complete course of remdisivir and discharge back to home.
[2020-07-24] MEDS: Insulin Glargine,Human Rec. Analog 100 Units/ML 3 ML Pen SUBCUT SCH (10:48)
[2020-07-24] MEDS: Diltiazem 240 MG Cap.ER PO SCH (12:10)
[2020-07-24] MEDS ORDERED: REMDESIVIR 100 MG in Sodium Chloride 0.9% 250 ML IV SCH (19:00)
[2020-07-24] MEDS: Montelukast 10 MG Tab PO SCH (21:33)
[2020-07-24] MEDS: Rosuvastatin 10 MG Tab PO SCH (21:34)
[2020-07-24] MEDS: Losartan 50 MG Tab PO SCH (21:36)
[2020-07-25] MEDS: Pantoprazole 40 MG Tab.CR PO SCH (06:35)
[2020-07-25] MEDS: IBRUTINIB 140 MG PO SCH (07:30)
[2020-07-25] MEDS: Insulin Aspart 100 Units/ML 3 ML Pen SUBCUT SCH ×4 (08:11→21:24)
[2020-07-25] MEDS: Ascorbic Acid 500 MG Tab PO SCH ×2 (08:14→20:30)
[2020-07-25] MEDS: Zinc (Zinc Gluconate) 50 MG Tab PO SCH (08:15)
[2020-07-25] MEDS: Sulfamethoxazole/Trimethoprim 800-160 MG Tab PO SCH (08:16)
[2020-07-25] MEDS: Apixaban 5 MG Tab PO SCH ×2 (08:17→20:32)
[2020-07-25] MEDS: Cholecalciferol (Vitamin D3) 25 MCG Tab PO SCH (08:17)
[2020-07-25] MEDS: Acyclovir 400 MG Tab PO SCH ×2 (08:18→20:33)
[2020-07-25] MEDS: Dexamethasone 4 MG Tab PO SCH (08:18)
[2020-07-25 08:19] LABS: ANION GAP 11.2 mmol/L (5-15)
[2020-07-25] MEDS: Allopurinol 100 MG Tab PO SCH (08:19)
[2020-07-25] MEDS: VENETOCLAX 100 MG PO SCH (08:21)
[2020-07-25] MEDS: Insulin Glargine,Human Rec. Analog 100 Units/ML 3 ML Pen SUBCUT SCH (08:22)
[2020-07-25] MEDS: Diltiazem 240 MG Cap.ER PO SCH (12:20)
[2020-07-25] MEDS ORDERED: 50% Dextrose in Water 50 ML Syringe IV PRN ×2 (12:22→12:24)
[2020-07-25] MEDS ORDERED: Glucagon,Human Recombinant 1 MG Vial IM PRN ×2 (12:22→12:24)
[2020-07-25] MEDS ORDERED: Insulin Aspart 100 Units/ML 3 ML Pen SUBCUT ONE ×3 (12:24→17:15)
[2020-07-25 14:38] LABS: PCO2 ARTERIAL,POC 38 mmHg (35-48)
[2020-07-25] MEDS ORDERED: REMDESIVIR 100 MG in Sodium Chloride 0.9% 250 ML IV SCH ×2 (15:00→17:00)
[2020-07-25] MEDS: Sodium Chloride 0.9% 50 ML IV SCH (16:40)
[2020-07-25] MEDS: metFORMIN 500 MG Tab PO SCH (17:30)
[2020-07-25] MEDS: Rosuvastatin 10 MG Tab PO SCH (20:31)
[2020-07-25] MEDS: Losartan 50 MG Tab PO SCH (20:31)
[2020-07-25] MEDS: Montelukast 10 MG Tab PO SCH (20:33)
[2020-07-25] MEDS ORDERED: Insulin Glargine,Human Rec. Analog 100 Units/ML 3 ML Pen SUBCUT ONE ×2 (21:00)
[2020-07-26] MEDS: Pantoprazole 40 MG Tab.CR PO SCH (06:23)
[2020-07-26] MEDS: IBRUTINIB 140 MG PO SCH (06:34)
[2020-07-26] MEDS: Ascorbic Acid 500 MG Tab PO SCH (08:07)
[2020-07-26] MEDS: metFORMIN 500 MG Tab PO SCH (08:09)
[2020-07-26] MEDS: Insulin Aspart 100 Units/ML 3 ML Pen SUBCUT SCH ×2 (08:09→12:01)
[2020-07-26] MEDS: Dexamethasone 4 MG Tab PO SCH (08:12)
[2020-07-26] MEDS: Apixaban 5 MG Tab PO SCH (08:12)
[2020-07-26] MEDS: Allopurinol 100 MG Tab PO SCH (08:13)
[2020-07-26] MEDS: Acyclovir 400 MG Tab PO SCH (08:13)
[2020-07-26] MEDS: Cholecalciferol (Vitamin D3) 25 MCG Tab PO SCH (08:16)
[2020-07-26] MEDS: Zinc (Zinc Gluconate) 50 MG Tab PO SCH (08:16)
[2020-07-26] MEDS: VENETOCLAX 100 MG PO SCH (08:16)
[2020-07-26] MEDS: Insulin Glargine,Human Rec. Analog 100 Units/ML 3 ML Pen SUBCUT SCH (08:17)
[2020-07-26 09:32] LABS: ANION GAP 12.6 mmol/L (5-15)
--- NOTE | 2020-07-26 10:14 | PCM.DCSUM1 ---
Discharge Summary - Hospital Course Diagnosis: Stroke: No - Discharge Data Discharge Date: 07/26/20 Discharge Disposition: Home, Self-Care 01 Condition: Good - Referral to Home Health Primary Care Physician: Pedro Ross NP - Patient Instructions Diet: Heart Healthy Diet, Drink 8-10+ Glasses/Day Activity: Cough & Deep Breathe, No Lifting Over 10 Pounds, No Strenuous Activities, Rest and Relax Today Driving: May Drive Today Showering/Bathing: May Shower Notify Provider of: Fever Other/Special Instructions: Report any shortness of breath increase in mucus or chest pain. Absolutley NO elk/deer hunting for now. Keep your Nitroglycerin in your pocket. Test your blood sugar 15min before meal and use the insulin scale - Discharge Plan *PRESCRIPTION DRUG MONITORING PROGRAM REVIEWED*: Not Applicable *COPY OF PRESCRIPTION DRUG MONITORING REPORT IN PATIENT PORSHA: Not Applicable Prescriptions/Med Rec: Nitroglycerin 0.4 mg SL ASDIRECTED #10 tab.subl Insulin Aspart [NovoLOG] 0 unit SL WITHMEALSANDBED #1 pen Home Medications: Home Meds Losartan [Cozaar] 100 mg PO BEDTIME 02/03/19 [History] Montelukast [Singulair] 10 mg PO BEDTIME 02/03/19 [History] metFORMIN HCl [Glucophage] 1,000 mg PO BID 02/03/19 [History] Cholecalciferol (Vitamin D3) [Vitamin D3] 2,000 unit PO BEDTIME 05/14/19 [History] Fluticasone Propionate [Flonase] 1 spray NASBOTH BID PRN 05/14/19 [History] Rosuvastatin Calcium [Crestor] 40 mg PO BEDTIME 05/14/19 [History] Ubidecarenone [Co Q-10] 200 mg PO BEDTIME 05/14/19 [History] Albuterol [Ventolin HFA] 1 puff IH DAILY PRN 12/09/19 [History] Pantoprazole Sodium [Protonix] 40 mg PO ACBREAKFAST 12/09/19 [History] Acyclovir [Zovirax] 400 mg PO BID 05/19/20 [History] Ibrutinib [Imbruvica] 140 mg PO ACBREAKFAST 05/19/20 [History] Sulfamethoxazole/Trimethoprim [Sulfamethoxazole-Tmp Ds Tablet] 1 each PO MOWEFR 05/19/20 [History] Apixaban [Eliquis] 5 mg PO BID #60 tablet 05/21/20 [Rx] Allopurinol [Zyloprim] 300 mg PO DAILY 07/22/20 [History] Codeine Phosphate/Guaifenesin [Guaiatussin AC Liquid] 5 ml PO Q4H PRN 07/22/20 [History] Diltiazem HCl [Diltiazem 24Hr Cd] 240 mg PO DAILY@1200 07/22/20 [History] Venetoclax [Venclexta] 200 mg PO DAILY 07/22/20 [History] Zinc Sulfate 220 mg PO DAILY 07/22/20 [History] methylPREDNISolone [Methylprednisolone] 4 mg PO BID 07/22/20 [History] Insulin Aspart [NovoLOG] 0 unit SL WITHMEALSANDBED #1 pen 07/26/20 [Rx] Nitroglycerin 0.4 mg SL ASDIRECTED #10 tab.subl 07/26/20 [Rx] - Discharge Summary/Plan Comment DC Time >30 min.: Yes Discharge Summary/Plan Comment: Final diagnosis --Acute hypoxic respiratory failure, resolved --COVID-19 pneumonia --DMT2: With hyperglycemia steroid-induced --Hyponatremia --Protein calorie malnutrition: 20# weight loss in the past month related to chemotherapy regimen. 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 Evidence of progression in February 2020 with severe fatigue, lymphadenopathy, and splenomegaly. Continue venetoclax, ibrutinib, acyclovir, and TMP-SMX. 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 # Paroxysmal atrial fibrillation: diltiazem 240mg daily and apixaban. # HTN: Controlled. losartan 100mg daily. # GERD: Controlled. pantoprazole 40mg daily. # CKD, stage 3a: Baseline GFR 55. # HLD: Continue rosuvastatin 40mg daily. On Coq10 # Vitamin D deficiency: Continue vitamin D 2000un daily. # Gout: No recent flares. Continue allopurinol 100mg daily. # Seasonal allergies: Controlled. montelukast 10mg HS, Flonase prn. HPI summary: Mr. Bradford is a 69yoM with a history notable for CLL on chemotherapy, DMT2, and PAF on anticoagulation who was in his usual state of health until 07/10/20 when he noted mild congestion and cough while elk hunting. In the subsequent days, had some fatigue, but otherwise felt he was at his baseline. Endorsed chronic intermittent diarrhea and decreased appetite related to CLL and chemotherapy he is taking. Was seen 07/16/20 via telemedicine by KOTA Luna, and had COVID LumiraDX antigen test completed the following day, which was positive. Started on [facility] home monitoring program, started Medrol dose pack on 07/17/20 and received bamlanivimab on 07/18/20. Had been maintaining saturations and having stable symptoms until the day of admission when he noted his oxygen to persistently throughout the day remain in the 80s. For this reason, presented to the [facility] ED. ED course: In the ED, he was noted to be mildly hypoxic in the high 80s, but was unresponsive to oxygen via nasal cannula and eventually required use of mask and flow of 6lpm to maintain saturations. Evaluation included CBC, CMP, lactate, and CXR, which were notable for WBC 4.9 with 79% neutrophils, Na 131, Cr 1.29, and CXR showing left lower base parenchymal opacities and chronically right hemidiaphragm. After being called for admission and discussing patient care, obtained ABG and CTA which were overall reassuring; ABG 7.38/38/151-[address] angiogram with findings of COVID pneumonia with bilateral groundglass opacities and no evidence of clot. Oxygen requirement also decreased to 4lpm via nasal cannula. He was admitted. Ordered remdisivir loading dose and dexamethasone 6mg. Several standard COVID-19 admission labs were added on and normal, including troponin, CK, BNP, magnesium, CRP, ESR, and procalcitonin. Hospital course: 07/23/19: Clinically improved with resolved shortness of breath and improved cough. VS normal except requiring 4lpm oxygen via nasal cannula. Daily COVID labs reassuring. Procalcitonin and remainder of admission COVID add-on labs also normal. BGs elevated related to dexamethasone. Mild hyponatremia likely secondary to hypovolemia for which patient wishes to increase oral intake throughout the day and recheck tomorrow before starting IVF. Notified patient's primary oncologist, Dr. Chavis of status; no specific treatment changes recommended regarding his CLL and current chemotherapy status. 07/24/2020: Hoarse voice today likely steroid-induced, no fever, mild cough, O2 sats mid 90s with 4 L nasal cannula oxygen, hyperglycemia, 1400 mL on incentive spirometer, 07/25/2020; oxygen requirements down to 2 L/min, patient feeling much better, aggressive pulmonary and toileting doing well, ambulating in room much less of a cough, no fever, rigors 4-5 100s, covered with long-acting and short acting insulin. Restarted Metformin 07/26/2020; no longer on oxygen, feeling good, very minimal cough, sodium 132, BUN 39 creatinine 1.26. Sugars improved under 300 without signs of DKA. C- reactive protein decreasing. Remdisivir 100mg daily (5th dose scheduled today, Dexamethasone 6mg daily (10th day of steroids and 5th day of dexamethasone scheduled for today Medication changes/adjustments upon discharge --Nitroglycerin 0.4 mg sublingual as directed for chest pain --Insulin aspart, high-dose sliding scale directed with meals --Continue on all other home medications Disposition Patient deemed optimal and ready for discharge after fifth dose of remdesivir with dexamethasone this afternoon Will attend scheduled appt at [place] for reassessment of renal tumor then cardiac stress test in [place] Given instructions on reporting any chest pain, no hunting, no heavy lifting no strenuous exercises since pending stress test. He is reporting new fevers, worsening cough or chest pain. Report any shortness of breath - General Info Functional Status: Reports: Pain Controlled - Review of Systems General: Reports: No Symptoms HEENT: Reports: No Symptoms Pulmonary: Reports: Pleuritic Chest Pain, Cough (mild cough). Denies: Shortness of Breath, Sputum, Hemoptysis, Wheezing Cardiovascular: Reports: No Symptoms Gastrointestinal: Reports: No Symptoms Genitourinary: Reports: No Symptoms Musculoskeletal: Reports: No Symptoms Skin: Reports: No Symptoms Neurological: Reports: No Symptoms Psychiatric: Reports: No Symptoms - Patient Data Vitals - Most Recent: Last Vital Signs Temp 97.5 F 07/26/20 06:22 Pulse 52 L 07/26/20 06:22 Resp 16 07/26/20 06:22 BP 112/65 07/26/20 06:22 Pulse Ox 93 L 07/26/20 09:00 Weight - Most Recent: 197 lb I&O - Last 24 hours: Intake & Output 07/25/20 07/26/20 07/26/20 22:59 06:59 14:59 Intake Total 780 300 Balance 780 300 Lab Results - Last 24 hrs: Laboratory Results - last 24 hr 07/22/20 07/22/20 07/25/20 Range/Units 20:35 20:35 12:09 WBC (5.00-10.00) 10^3/uL RBC (4.50-6.00) 10^6/uL Hgb (13.0-17.0) g/dL Hct (40.0-52.0) % MCV (82.0-92.0) fL MCH (27.0-31.0) pg MCHC (32.0-36.0) g/dL RDW (11.5-14.5) % Plt Count (150-400) 10^3/uL MPV (7.4-10.4) fL Immature Gran % (Auto) (0.0-5.0) % Neut % (Auto) (50.0-70.0) % Lymph % (Auto) (20.0-40.0) % [place] % (Auto) (2.0-8.0) % Eos % (Auto) (1.0-3.0) % Baso % (Auto) (0.0-1.0) % Neut # (Auto) (2.50-7.00) 10^3/uL Lymph # (Auto) (1.00-4.00) 10^3/uL [place] # (Auto) (0.10-0.80) 10^3/uL Eos # (Auto) (0.10-0.30) 10^3/uL Baso # (Auto) (0.00-0.10) 10^3/uL Immature Gran # (Auto) (0.00-0.50) 10^3/uL POC ABG pH 7.4 (7.35-7.45) pH ABG pH Cancelled POC ABG pCO2 38 (35-48) mmHg ABG pCO2 Cancelled POC ABG pO2 151 H (83-108) mmHg ABG pO2 Cancelled POC ABG HCO3 23 (21-28) mmol/L ABG HCO3 Cancelled ABG Total CO2 Cancelled ABG O2 Sat (Calculated) 99.3 H (94-98) % ABG O2 Saturation Cancelled POC ABG Base Excess -2 (-2-3) mmol/L ABG Base Excess Cancelled O2 Delivery Device Cancelled Oxygen Flow Rate Cancelled Blood Gas Comments Cancelled Sodium (136-145) mmol/L Potassium (3.5-5.1) mmol/L Chloride (98-107) mmol/L Carbon Dioxide (21.0-32.0) mmol/L Anion Gap (5-15) mmol/L BUN (7-18) mg/dL Creatinine (0.51-1.17) mg/dL Est Cr Clr Drug Dosing mL/min Estimated GFR (MDRD) mL/min Glucose (70-140) mg/dL POC Glucose > 500 H* (74-100) mg/dL Calcium (8.7-10.3) mg/dL Magnesium (1.8-2.4) mg/dL Total Bilirubin (0.2-1.0) mg/dL AST (15-37) U/L ALT (14-63) U/L Alkaline Phosphatase (46-116) U/L C-Reactive Protein (0.0-0.9) mg/dL Total Protein (6.4-8.2) g/dL Albumin (3.40-5.00) g/dL 07/25/20 07/25/20 07/25/20 Range/Units 13:39 14:30 16:35 WBC (5.00-10.00) 10^3/uL RBC (4.50-6.00) 10^6/uL Hgb (13.0-17.0) g/dL Hct (40.0-52.0) % MCV (82.0-92.0) fL MCH (27.0-31.0) pg MCHC (32.0-36.0) g/dL RDW (11.5-14.5) % Plt Count (150-400) 10^3/uL MPV (7.4-10.4) fL Immature Gran % (Auto) (0.0-5.0) % Neut % (Auto) (50.0-70.0) % Lymph % (Auto) (20.0-40.0) % [place] % (Auto) (2.0-8.0) % Eos % (Auto) (1.0-3.0) % Baso % (Auto) (0.0-1.0) % Neut # (Auto) (2.50-7.00) 10^3/uL Lymph # (Auto) (1.00-4.00) 10^3/uL [place] # (Auto) (0.10-0.80) 10^3/uL Eos # (Auto) (0.10-0.30) 10^3/uL Baso # (Auto) (0.00-0.10) 10^3/uL Immature Gran # (Auto) (0.00-0.50) 10^3/uL POC ABG pH (7.35-7.45) pH ABG pH POC ABG pCO2 (35-48) mmHg ABG pCO2 POC ABG pO2 (83-108) mmHg ABG pO2 POC ABG HCO3 (21-28) mmol/L ABG HCO3 ABG Total CO2 ABG O2 Sat (Calculated) (94-98) % ABG O2 Saturation POC ABG Base Excess (-2-3) mmol/L ABG Base Excess O2 Delivery Device Oxygen Flow Rate Blood Gas Comments Sodium (136-145) mmol/L Potassium (3.5-5.1) mmol/L Chloride (98-107) mmol/L Carbon Dioxide (21.0-32.0) mmol/L Anion Gap (5-15) mmol/L BUN (7-18) mg/dL Creatinine (0.51-1.17) mg/dL Est Cr Clr Drug Dosing mL/min Estimated GFR (MDRD) mL/min Glucose > 500 H (70-140) mg/dL POC Glucose > 500 H* 492 H* (74-100) mg/dL Calcium (8.7-10.3) mg/dL Magnesium (1.8-2.4) mg/dL Total Bilirubin (0.2-1.0) mg/dL AST (15-37) U/L ALT (14-63) U/L Alkaline Phosphatase (46-116) U/L C-Reactive Protein (0.0-0.9) mg/dL Total Protein (6.4-8.2) g/dL Albumin (3.40-5.00) g/dL 07/25/20 07/25/20 07/25/20 Range/Units 18:12 19:20 20:30 WBC (5.00-10.00) 10^3/uL RBC (4.50-6.00) 10^6/uL Hgb (13.0-17.0) g/dL Hct (40.0-52.0) % MCV (82.0-92.0) fL MCH (27.0-31.0) pg MCHC (32.0-36.0) g/dL RDW (11.5-14.5) % Plt Count (150-400) 10^3/uL MPV (7.4-10.4) fL Immature Gran % (Auto) (0.0-5.0) % Neut % (Auto) (50.0-70.0) % Lymph % (Auto) (20.0-40.0) % [place] % (Auto) (2.0-8.0) % Eos % (Auto) (1.0-3.0) % Baso % (Auto) (0.0-1.0) % Neut # (Auto) (2.50-7.00) 10^3/uL Lymph # (Auto) (1.00-4.00) 10^3/uL [place] # (Auto) (0.10-0.80) 10^3/uL Eos # (Auto) (0.10-0.30) 10^3/uL Baso # (Auto) (0.00-0.10) 10^3/uL Immature Gran # (Auto) (0.00-0.50) 10^3/uL POC ABG pH (7.35-7.45) pH ABG pH POC ABG pCO2 (35-48) mmHg ABG pCO2 POC ABG pO2 (83-108) mmHg ABG pO2 POC ABG HCO3 (21-28) mmol/L ABG HCO3 ABG Total CO2 ABG O2 Sat (Calculated) (94-98) % ABG O2 Saturation POC ABG Base Excess (-2-3) mmol/L ABG Base Excess O2 Delivery Device Oxygen Flow Rate Blood Gas Comments Sodium (136-145) mmol/L Potassium (3.5-5.1) mmol/L Chloride (98-107) mmol/L Carbon Dioxide (21.0-32.0) mmol/L Anion Gap (5-15) mmol/L BUN (7-18) mg/dL Creatinine (0.51-1.17) mg/dL Est Cr Clr Drug Dosing mL/min Estimated GFR (MDRD) mL/min Glucose (70-140) mg/dL POC Glucose 410 H* 399 H 325 H (74-100) mg/dL Calcium (8.7-10.3) mg/dL Magnesium (1.8-2.4) mg/dL Total Bilirubin (0.2-1.0) mg/dL AST (15-37) U/L ALT (14-63) U/L Alkaline Phosphatase (46-116) U/L C-Reactive Protein (0.0-0.9) mg/dL Total Protein (6.4-8.2) g/dL Albumin (3.40-5.00) g/dL 07/26/20 07/26/20 07/26/20 Range/Units 01:53 07:10 07:10 WBC 5.72 (5.00-10.00) 10^3/uL RBC 4.73 (4.50-6.00) 10^6/uL Hgb 13.4 (13.0-17.0) g/dL Hct 40.3 (40.0-52.0) % MCV 85.2 (82.0-92.0) fL MCH 28.3 (27.0-31.0) pg MCHC 33.3 (32.0-36.0) g/dL RDW 15.5 H (11.5-14.5) % Plt Count 232 (150-400) 10^3/uL MPV 11.1 H (7.4-10.4) fL Immature Gran % (Auto) 1.2 (0.0-5.0) % Neut % (Auto) 77.4 H (50.0-70.0) % Lymph % (Auto) 7.0 L (20.0-40.0) % [place] % (Auto) 14.2 H (2.0-8.0) % Eos % (Auto) 0.0 L (1.0-3.0) % Baso % (Auto) 0.2 (0.0-1.0) % Neut # (Auto) 4.43 (2.50-7.00) 10^3/uL Lymph # (Auto) 0.40 L (1.00-4.00) 10^3/uL [place] # (Auto) 0.81 H (0.10-0.80) 10^3/uL Eos # (Auto) 0.00 L (0.10-0.30) 10^3/uL Baso # (Auto) 0.01 (0.00-0.10) 10^3/uL Immature Gran # (Auto) 0.07 (0.00-0.50) 10^3/uL POC ABG pH (7.35-7.45) pH ABG pH POC ABG pCO2 (35-48) mmHg ABG pCO2 POC ABG pO2 (83-108) mmHg ABG pO2 POC ABG HCO3 (21-28) mmol/L ABG HCO3 ABG Total CO2 ABG O2 Sat (Calculated) (94-98) % ABG O2 Saturation POC ABG Base Excess (-2-3) mmol/L ABG Base Excess O2 Delivery Device Oxygen Flow Rate Blood Gas Comments Sodium 132 L (136-145) mmol/L Potassium 4.8 (3.5-5.1) mmol/L Chloride 100 (98-107) mmol/L Carbon Dioxide 24.2 (21.0-32.0) mmol/L Anion Gap 12.6 (5-15) mmol/L BUN 39 H (7-18) mg/dL Creatinine 1.26 H (0.51-1.17) mg/dL Est Cr Clr Drug Dosing 62.44 mL/min Estimated GFR (MDRD) 57 mL/min Glucose 338 H (70-140) mg/dL POC Glucose 396 H (74-100) mg/dL Calcium 8.8 (8.7-10.3) mg/dL Magnesium 2.0 (1.8-2.4) mg/dL Total Bilirubin 0.5 (0.2-1.0) mg/dL AST 15 (15-37) U/L ALT 29 (14-63) U/L Alkaline Phosphatase 74 (46-116) U/L C-Reactive Protein 1.1 H (0.0-0.9) mg/dL Total Protein 5.9 L (6.4-8.2) g/dL Albumin 2.58 L (3.40-5.00) g/dL 07/26/20 Range/Units 07:36 WBC (5.00-10.00) 10^3/uL RBC (4.50-6.00) 10^6/uL Hgb (13.0-17.0) g/dL Hct (40.0-52.0) % MCV (82.0-92.0) fL MCH (27.0-31.0) pg MCHC (32.0-36.0) g/dL RDW (11.5-14.5) % Plt Count (150-400) 10^3/uL MPV (7.4-10.4) fL Immature Gran % (Auto) (0.0-5.0) % Neut % (Auto) (50.0-70.0) % Lymph % (Auto) (20.0-40.0) % [place] % (Auto) (2.0-8.0) % Eos % (Auto) (1.0-3.0) % Baso % (Auto) (0.0-1.0) % Neut # (Auto) (2.50-7.00) 10^3/uL Lymph # (Auto) (1.00-4.00) 10^3/uL [place] # (Auto) (0.10-0.80) 10^3/uL Eos # (Auto) (0.10-0.30) 10^3/uL Baso # (Auto) (0.00-0.10) 10^3/uL Immature Gran # (Auto) (0.00-0.50) 10^3/uL POC ABG pH (7.35-7.45) pH ABG pH POC ABG pCO2 (35-48) mmHg ABG pCO2 POC ABG pO2 (83-108) mmHg ABG pO2 POC ABG HCO3 (21-28) mmol/L ABG HCO3 ABG Total CO2 ABG O2 Sat (Calculated) (94-98) % ABG O2 Saturation POC ABG Base Excess (-2-3) mmol/L ABG Base Excess O2 Delivery Device Oxygen Flow Rate Blood Gas Comments Sodium (136-145) mmol/L Potassium (3.5-5.1) mmol/L Chloride (98-107) mmol/L Carbon Dioxide (21.0-32.0) mmol/L Anion Gap (5-15) mmol/L BUN (7-18) mg/dL Creatinine (0.51-1.17) mg/dL Est Cr Clr Drug Dosing mL/min Estimated GFR (MDRD) mL/min Glucose (70-140) mg/dL POC Glucose 287 H (74-100) mg/dL Calcium (8.7-10.3) mg/dL Magnesium (1.8-2.4) mg/dL Total Bilirubin (0.2-1.0) mg/dL AST (15-37) U/L ALT (14-63) U/L Alkaline Phosphatase (46-116) U/L C-Reactive Protein (0.0-0.9) mg/dL Total Protein (6.4-8.2) g/dL Albumin (3.40-5.00) g/dL Med Orders - Current: Current Medications Acyclovir (Zovirax) 400 mg PO BID [facility] Last Admin: 07/26/20 08:13 Dose: 400 mg Documented by: Allopurinol (Zyloprim) 300 mg PO DAILY [facility] Last Admin: 07/26/20 08:13 Dose: 300 mg Documented by: Apixaban (Eliquis) 5 mg PO BID [facility] Last Admin: 07/26/20 08:12 Dose: 5 mg Documented by: Ascorbic Acid (Vitamin C) 1,000 mg PO BID [facility] Last Admin: 07/26/20 08:07 Dose: 1,000 mg Documented by: Cholecalciferol (Vitamin D3) 25 mcg PO DAILY [facility] Last Admin: 07/26/20 08:16 Dose: 25 mcg Documented by: Dexamethasone (Dexamethasone) 6 mg PO DAILY [facility] Last Admin: 07/26/20 08:12 Dose: 6 mg Documented by: Dextrose/Water (Dextrose 50% In Water) 50 ml IV ASDIRECTED PRN PRN Reason: Hypoglycemia Diltiazem HCl (Dilacor Xr) 240 mg PO DAILY@1200 [facility] Last Admin: 07/25/20 12:20 Dose: 240 mg Documented by: Fluticasone Propionate (Flonase) 0 gm NASBOTH BID PRN PRN Reason: Allergies Glucagon (Glucagen) 1 mg IM ASDIRECTED PRN PRN Reason: Hypoglycemia Sodium Chloride (Normal Saline) 50 mls @ 125 mls/hr IV ASDIRECTED [facility] Last Admin: 07/25/20 16:40 Dose: 125 mls/hr Documented by: Remdesivir 100 mg/ Sodium (Chloride) 250 mls @ 250 mls/hr IV 1500 [facility] Stop: 07/26/20 15:59 Insulin Aspart (Novolog) 0 unit SUBCUT WITHMEALSANDBED [facility]; Protocol Last Admin: 07/26/20 08:09 Dose: 6 units Documented by: Insulin Glargine (Lantus Solostar) 10 units SUBCUT DAILY [facility] Last Admin: 07/26/20 08:17 Dose: 10 units Documented by: Losartan Potassium (Cozaar) 100 mg PO BEDTIME [facility] Last Admin: 07/25/20 20:31 Dose: 100 mg Documented by: Metformin HCl (Glucophage) 1,000 mg PO BIDMEALS [facility] Last Admin: 07/26/20 08:09 Dose: 1,000 mg Documented by: Montelukast Sodium (Singulair) 10 mg PO BEDTIME [facility] Last Admin: 07/25/20 20:33 Dose: 10 mg Documented by: Ibrutinib [Imbruvica ] 140 Mg [employer]Own Med 140 mg PO ACBREAKFAST [facility] Last Admin: 07/26/20 06:34 Dose: 140 mg Documented by: Pantoprazole Sodium (Protonix) 40 mg PO DAILY@0700 [facility] Last Admin: 07/26/20 06:23 Dose: 40 mg Documented by: Venetoclax 100mg (Tablet - Ptom) 2 each PO DAILY [facility] Last Admin: 07/26/20 08:16 Dose: 2 each Documented by: Rosuvastatin Calcium (Crestor) 40 mg PO BEDTIME [facility] Last Admin: 07/25/20 20:31 Dose: 40 mg Documented by: Trimethoprim/Sulfamethoxazole (Septra Ds) 1 tab PO MoWeFr@0900 [facility] Last Admin: 07/25/20 08:16 Dose: 1 tab Documented by: Zinc Gluconate (Zinc) 100 mg PO DAILY [facility] Last Admin: 07/26/20 08:16 Dose: 100 mg Documented by: Discontinued Medications Dexamethasone (Decadron) 6 mg IVPUSH ONETIME ONE Stop: 07/22/20 20:00 Last Admin: 07/22/20 20:00 Dose: 6 mg Documented by: Remdesivir 200 mg/ Sodium (Chloride) 250 mls @ 250 mls/hr IV ONETIME ONE Stop: 07/22/20 18:55 Last Admin: 07/22/20 22:00 Dose: 250 mls/hr Documented by: Dexamethasone 6 mg/ Sodium (Chloride) 101.5 mls @ 231.618 mls/hr IV ASDIRECTED [facility] Sodium Chloride (Normal Saline) 1,000 mls @ 150 mls/hr IV ASDIRECTED [facility] Last Admin: 07/22/20 19:40 Dose: 150 mls/hr Documented by: Sodium Chloride (Normal Saline) 100 mls @ 200 mls/min IV ASDIRECTED [facility] Last Admin: 07/22/20 21:19 Dose: 200 mls/min Documented by: Remdesivir 100 mg/ Sodium (Chloride) 250 mls @ 250 mls/hr IV Q24H [facility] Stop: 07/26/20 21:59 Last Admin: 07/23/20 21:44 Dose: 250 mls/hr Documented by: Remdesivir 100 mg/ Sodium (Chloride) 250 mls @ 250 mls/hr IV 1900 [facility] Stop: 07/24/20 19:59 Last Admin: 07/24/20 18:46 Dose: 250 mls/hr Documented by: Remdesivir 100 mg/ Sodium (Chloride) 250 mls @ 250 mls/hr IV 1500 [facility] Stop: 07/25/20 15:59 Remdesivir 100 mg/ Sodium (Chloride) 250 mls @ 250 mls/hr IV 1300 [facility] Stop: 07/26/20 13:59 Remdesivir 100 mg/ Sodium (Chloride) 250 mls @ 250 mls/hr IV 1700 [facility] Stop: 07/25/20 17:59 Last Admin: 07/25/20 16:44 Dose: 250 mls/hr Documented by: Insulin Aspart (Novolog) 12 unit SUBCUT ONETIME ONE Stop: 07/25/20 12:25 Last Admin: 07/25/20 12:32 Dose: 12 units Documented by: Insulin Aspart (Novolog) 10 unit SUBCUT ONETIME ONE Stop: 07/25/20 13:47 Last Admin: 07/25/20 14:30 Dose: 10 units Documented by: Insulin Aspart (Novolog) 12 unit SUBCUT ONETIME ONE Stop: 07/25/20 17:16 Last Admin: 07/25/20 17:28 Dose: 12 units Documented by: Insulin Glargine (Lantus Solostar) 10 units SUBCUT BEDTIME ONE Stop: 07/25/20 21:01 Insulin Glargine (Lantus Solostar) 15 units SUBCUT BEDTIME ONE Stop: 07/25/20 21:01 Last Admin: 07/25/20 20:36 Dose: 15 units Documented by: Iopamidol (Isovue-370 (76%)) 75 ml IVPUSH ONETIME ONE Stop: 07/22/20 20:28 Last Admin: 07/22/20 21:19 Dose: 75 ml Documented by: Non-Formulary Medication (Cholecalciferol (Vitamin D3) [Vitamin D3]) 2,000 unit PO BEDTIME ESAU Ondansetron HCl (Zofran) 4 mg IVPUSH ONETIME ONE Stop: 07/22/20 19:46 Last Admin: 07/22/20 19:57 Dose: 4 mg Documented by: Sodium Chloride (Saline Flush) 10 ml FLUSH Q8HR PRN PRN Reason: keep vein open Last Admin: 07/22/20 18:19 Dose: 10 ml Documented by: - Exam Quality Assessment: Denies: Supplemental Oxygen General: Reports: Alert, Oriented, Cooperative Neck: Reports: Supple Lungs: Reports: Clear to Auscultation, Normal Respiratory Effort Cardiovascular: Reports: Regular Rate, Regular Rhythm GI/Abdominal Exam: Normal Bowel Sounds, Soft Extremities: No Pedal Edema Psy/Mental Status: Reports: Alert, Normal Affect
[2020-07-26] MEDS: Diltiazem 240 MG Cap.ER PO SCH (12:01)
[2020-07-26] MEDS ORDERED: REMDESIVIR 100 MG in Sodium Chloride 0.9% 250 ML IV SCH ×2 (13:00→15:00)
== END 2020-07-26 15:32 | disposition home or self-care (01) | DRG 177 ==
LOC: KA.ED 18:07 → KA.MS 21:59
PROVIDERS: ADMIT Physician Assistant Medical; ATTEND Family Medicine
PROC: XW033E5 Introduction of Remdesivir Anti-infective into Peripheral Vein, Percutaneous Approach, New Technology Group 5 (ICD-10-PCS; principal; 2020-07-22)
DX: U07.1 COVID-19 (principal); J96.01 Acute respiratory failure with hypoxia; R09.02 Hypoxemia; J12.82 Pneumonia due to coronavirus disease 2019; E87.1 Hypo-osmolality and hyponatremia; C91.10 Chronic lymphocytic leukemia of B-cell type not having achieved remission; I10 Essential (primary) hypertension; J45.909 Unspecified asthma, uncomplicated; E46 Unspecified protein-calorie malnutrition; E11.65 Type 2 diabetes mellitus with hyperglycemia; T38.0X5A Adverse effect of glucocorticoids and synthetic analogues, initial encounter; E11.42 Type 2 diabetes mellitus with diabetic polyneuropathy; I25.10 Atherosclerotic heart disease of native coronary artery without angina pectoris; I12.9 Hypertensive chronic kidney disease with stage 1 through stage 4 chronic kidney disease, or unspecified chronic kidney disease; Z79.01 Long term (current) use of anticoagulants; K21.9 Gastro-esophageal reflux disease without esophagitis; N18.31 Chronic kidney disease, stage 3a; E78.5 Hyperlipidemia, unspecified; R16.1 Splenomegaly, not elsewhere classified; E55.9 Vitamin D deficiency, unspecified; M10.9 Gout, unspecified; J30.2 Other seasonal allergic rhinitis; H54.7 Unspecified visual loss; H91.90 Unspecified hearing loss, unspecified ear; E78.00 Pure hypercholesterolemia, unspecified; Z96.659 Presence of unspecified artificial knee joint; M19.90 Unspecified osteoarthritis, unspecified site; E86.1 Hypovolemia; Z99.81 Dependence on supplemental oxygen; Z79.52 Long term (current) use of systemic steroids; Z79.84 Long term (current) use of oral hypoglycemic drugs; Z79.899 Other long term (current) drug therapy; Z87.891 Personal history of nicotine dependence; Z90.49 Acquired absence of other specified parts of digestive tract
CPT/HCPCS: 36415; 36600 ×2; 71046; 71275; 80053; 82550; 82803; 83605; 83735; 83880; 84145; 84484; 85025; 85379; 85610; 85730; 86140; 93005; 96374; 96375; 99284; 99285; J1100; J2405; J7030; Q9967; 82947; 82962; 85652; A9270-GY; J1815-GY; J7050; J8540

== ENCOUNTER 2020-08-04 18:34 | Inpatient (IN) | payer MEDICARE, BC ==
[2020-08-04] MEDS ORDERED: Sodium Chloride 0.9% 10 ML Syringe FLUSH PRN (19:00)
--- NOTE | 2020-08-04 19:04 | EDM.PDOC ---
ED HPI GENERAL MEDICAL PROBLEM - General Chief Complaint: General Stated Complaint: WEAKNESS Time Seen by Provider: 08/04/20 18:47 Source of Information: Reports: Patient, Significant Other History Limitations: Reports: No Limitations - History of Present Illness INITIAL COMMENTS - FREE TEXT/NARRATIVE: Patient presents with hypoxemia, weakness and cough for two days. Yesterday his oxygenation was sometimes in the mid 80's but would recover to mid 90's. Today it stayed in the mid 80's. He was here in the hospital for a few days with Covid pneumonia; he was released to home 9 days ago and felt good for a few days. He went to [place] for his chemo infusion for CLL and then to [place] for check on his kidneys. While there he started to feel short of breath. They did CXR and checked oxygen. He wasn't hypoxic then so he went home. He says he feels like he did with the pneumonia two weeks ago. He was released from [facility] quarantine about a week ago. - Related Data Allergies Allergy/AdvReac Type Severity Reaction Status Date / Time No Known Drug Allergies Allergy Other Verified 08/04/20 18:54 Home Meds: Home Meds Losartan [Cozaar] 100 mg PO BEDTIME 02/03/19 [History] Montelukast [Singulair] 10 mg PO BEDTIME 02/03/19 [History] metFORMIN HCl [Glucophage] 1,000 mg PO BID 02/03/19 [History] Cholecalciferol (Vitamin D3) [Vitamin D3] 2,000 unit PO BEDTIME 05/14/19 [History] Fluticasone Propionate [Flonase] 1 spray NASBOTH BID PRN 05/14/19 [History] Rosuvastatin Calcium [Crestor] 40 mg PO BEDTIME 05/14/19 [History] Ubidecarenone [Co Q-10] 200 mg PO BEDTIME 05/14/19 [History] Albuterol [Ventolin HFA] 1 puff IH DAILY PRN 12/09/19 [History] Pantoprazole Sodium [Protonix] 40 mg PO ACBREAKFAST 12/09/19 [History] Acyclovir [Zovirax] 400 mg PO BID 05/19/20 [History] Ibrutinib [Imbruvica] 140 mg PO ACBREAKFAST 05/19/20 [History] Sulfamethoxazole/Trimethoprim [Sulfamethoxazole-Tmp Ds Tablet] 1 each PO MOWEFR 05/19/20 [History] Apixaban [Eliquis] 5 mg PO BID #60 tablet 05/21/20 [Rx] Allopurinol [Zyloprim] 300 mg PO QAM 07/22/20 [History] Codeine Phosphate/Guaifenesin [Guaiatussin AC Liquid] 5 ml PO Q4H PRN 07/22/20 [History] Diltiazem HCl [Diltiazem 24Hr Cd] 240 mg PO DAILY@1200 07/22/20 [History] Venetoclax [Venclexta] 200 mg PO QAM 07/22/20 [History] Zinc Sulfate 220 mg PO DAILY 07/22/20 [History] Nitroglycerin 0.4 mg SL ASDIRECTED #10 tab.subl 07/26/20 [Rx] Insulin Aspart [NovoLOG] 0 unit SQ WITHMEALSANDBED 08/04/20 [History] Past Medical History HEENT History: Reports: Hard of Hearing, Impaired Vision Cardiovascular History: Reports: High Cholesterol, Hypertension Respiratory History: Reports: Asthma, Intubation, Difficult, Intubation, Previous, Other (See Below) Other Respiratory History: Restrictive lung disease Gastrointestinal History: Reports: GERD, Other (See Below) Other Gastrointestinal History: "loose stools from metformin" Genitourinary History: Reports: Other (See Below) Other Genitourinary History: renal mass Musculoskeletal History: Reports: Gout, Osteoarthritis Neurological History: Reports: Neuropathy, Peripheral Other Neuro History: Polyneuropathy stable Psychiatric History: Reports: None Endocrine/Metabolic History: Reports: Diabetes, Type II Hematologic History: Reports: Other (See Below) Other Hematologic History: current Vt D deficient Oncologic (Cancer) History: Reports: Leukemia, Renal, Other (See Below) Other Oncologic History: Chronic Lymphatic Leukemia Dermatologic History: Reports: None - Infectious Disease History Infectious Disease History: Reports: None, Chicken Pox, Measles, Mumps, Novel Coronavirus, Pertussis (Whooping Cough), Shingles - Past Surgical History HEENT Surgical History: Reports: Adenoidectomy, Tonsillectomy Cardiovascular Surgical History: Reports: None GI Surgical History: Reports: Appendectomy Male Surgical History: Reports: None Musculoskeletal Surgical History: Reports: Knee Replacement Other Musculoskeletal Surgeries/Procedures:: R Dermatological Surgical History: Reports: None Social & Family History - Family History Family Medical History: No Pertinent Family History - Caffeine Use Caffeine Use: Reports: None ED ROS GENERAL - Review of Systems Review Of Systems: See Below Constitutional: Reports: Weakness, Decreased Appetite (for at least a couple weeks). Denies: Fever (no fever at home but mild here now) HEENT: Reports: No Symptoms Respiratory: Reports: Shortness of Breath, Cough Cardiovascular: Denies: Chest Pain, Lightheadedness, Syncope GI/Abdominal: Reports: Diarrhea, Nausea (with dry heaves occasionally). Denies: Abdominal Pain : Reports: No Symptoms Musculoskeletal: Reports: No Symptoms Skin: Denies: Cyanosis, Jaundice, Mottled, Pallor, Diaphoresis Neurological: Denies: Confusion, Dizziness, Seizure, Syncope, Trouble Speaking, Difficulty Walking Hematologic/Lymphatic: Reports: Easy Bleeding (on Eliquis for A Fib) ED EXAM, GENERAL - Physical Exam Exam: See Below Exam Limited By: No Limitations General Appearance: Alert, WD/WN, No Apparent Distress Eye Exam: Bilateral Eye: EOMI, Normal Inspection, PERRL Ears: Normal External Exam, Hearing Grossly Normal Nose: Normal Inspection, No Blood Throat/Mouth: Normal Inspection, Normal Lips, Normal Voice, No Airway Compromise Head: Atraumatic, Normocephalic Neck: Normal Inspection, Full Range of Motion Respiratory/Chest: No Respiratory Distress, Crackles (bilat; worse in right middle and lower lung). No: Rhonchi, Wheezing, Stridor Cardiovascular: No Murmur, Tachycardia GI/Abdominal: Normal Bowel Sounds, Soft, Non-Tender, No Organomegaly, No Distention Back Exam: Normal Inspection, Full Range of Motion Extremities: Normal Inspection, Normal Range of Motion Neurological: Alert, Oriented, Normal Cognition, No Motor/Sensory Deficits Psychiatric: Normal Affect, Normal Mood Skin Exam: Warm, Dry, Intact, Normal Color, No Rash Course - Vital Signs Last Recorded V/S: Last Vital Signs Temp 100.4 F 08/06/20 10:18 Pulse 92 08/06/20 10:18 Resp 22 H 08/06/20 10:18 BP 138/84 08/06/20 10:18 Pulse Ox 94 L 08/06/20 10:18 - Orders/Labs/Meds Orders: Medication Orders Acetaminophen (Tylenol) 650 mg PO Q4H PRN PRN Reason: fever Last Admin: 08/06/20 08:13 Dose: 650 mg Documented by: Admin: 08/06/20 02:56 Dose: 650 mg Documented by: Admin: 08/05/20 21:48 Dose: 650 mg Documented by: KAITLIN Acyclovir (Zovirax) 400 mg PO BID [facility] Last Admin: 08/06/20 10:14 Dose: 400 mg Documented by: Admin: 08/05/20 21:43 Dose: 400 mg Documented by: Admin: 08/05/20 12:08 Dose: 400 mg Documented by: MIKE Albuterol (Ventolin Hfa) 0 gm INH Q4H PRN PRN Reason: sob Allopurinol (Zyloprim) 300 mg PO QAM [facility] Last Admin: 08/06/20 10:14 Dose: 300 mg Documented by: Admin: 08/05/20 12:10 Dose: 300 mg Documented by: MIKE Apixaban (Eliquis) 5 mg PO BID [facility] Last Admin: 08/06/20 10:14 Dose: 5 mg Documented by: Admin: 08/05/20 21:44 Dose: 5 mg Documented by: Admin: 08/05/20 12:09 Dose: 5 mg Documented by: MIKE Ceftriaxone Sodium (Rocephin) 1 gm IVPUSH Q24H [facility] Last Admin: 08/05/20 21:30 Dose: 1 gm Documented by: KAITLIN Cholecalciferol (Vitamin D3) 50 mcg PO BEDTIME [facility] Last Admin: 08/05/20 21:43 Dose: 50 mcg Documented by: KAITLIN Dextrose/Water (Dextrose 50% In Water) 50 ml IV ASDIRECTED PRN PRN Reason: Hypoglycemia Diltiazem HCl (Dilacor Xr) 240 mg PO DAILY@1200 [facility] Last Admin: 08/06/20 12:07 Dose: 240 mg Documented by: Admin: 08/05/20 12:08 Dose: 240 mg Documented by: MIKE Fluticasone Propionate (Flonase) 0 gm NASBOTH BID [facility] Last Admin: 08/06/20 10:15 Dose: 1 spray Documented by: Admin: 08/05/20 22:02 Dose: 1 spray Documented by: Admin: 08/05/20 12:06 Dose: 1 spray Documented by: MIKE Glucagon (Glucagen) 1 mg IM ASDIRECTED PRN PRN Reason: Hypoglycemia Guaifenesin/Codeine Phosphate (Robitussin Ac) 5 ml PO Q4H PRN PRN Reason: Cough Last Admin: 08/05/20 17:56 Dose: 5 ml Documented by: MIKE Vancomycin HCl 1.25 gm/ Sodium (Chloride) 250 mls @ 166.667 mls/hr IV Q12H [facility] Last Admin: 08/06/20 10:17 Dose: 166.667 mls/hr Documented by: [id number] Admin: 08/05/20 23:17 Dose: 166.667 mls/hr Documented by: Admin: 08/05/20 10:44 Dose: 166.667 mls/hr Documented by: Admin: 08/04/20 23:04 Dose: 166.667 mls/hr Documented by: ROSALBA Sodium Chloride (Normal Saline) 100 mls @ 100 mls/hr IV ASDIRECTED [facility] Last Admin: 08/05/20 10:44 Dose: 100 mls/hr Documented by: MIKE Azithromycin 250 mg/ Sodium (Chloride) 250 mls @ 250 mls/hr IV Q24H [facility] Last Admin: 08/05/20 21:37 Dose: 250 mls/hr Documented by: KAITLIN Sodium Chloride (Normal Saline) 1,000 mls @ 75 mls/hr IV ASDIRECTED [facility] Last Admin: 08/06/20 08:28 Dose: 125 mls/hr Documented by: Infusion: 08/06/20 05:41 Dose: 125 mls/hr Documented by: Admin: 08/05/20 21:41 Dose: 125 mls/hr Documented by: Infusion: 08/05/20 21:41 Dose: 125 mls/hr Documented by: Admin: 08/05/20 13:42 Dose: 125 mls/hr Documented by: MIKE Insulin Aspart (Novolog) 0 unit SUBCUT WITHMEALSANDBED [facility]; Protocol Last Admin: 08/06/20 12:08 Dose: 2 units Documented by: Admin: 08/06/20 08:07 Dose: 1 units Documented by: Admin: 08/05/20 21:57 Dose: 1 units Documented by: Admin: 08/05/20 17:58 Dose: 1 units Documented by: Admin: 08/05/20 12:11 Dose: 3 units Documented by: MIKE Loperamide HCl (Imodium) 2 mg PO Q4H PRN PRN Reason: Diarrhea Losartan Potassium (Cozaar) 100 mg PO BEDTIME [facility] Last Admin: 08/05/20 20:47 Dose: Not Given Documented by: Admin: 08/05/20 18:24 Dose: 100 mg Documented by: MIKE Montelukast Sodium (Singulair) 10 mg PO BEDTIME [facility] Last Admin: 08/05/20 21:43 Dose: 10 mg Documented by: KAITLIN Nitroglycerin (Nitrostat) 0.4 mg SL ASDIRECTED PRN PRN Reason: chest pain Imbruvica 140 Mg * Chemo Med Study Drug 0 mg PO ACBREAKFAST [facility] Last Admin: 08/06/20 08:08 Dose: 140 mg Documented by: [id number] Admin: 08/05/20 15:09 Dose: Not Given Documented by: MIKE Venetoclax 100mg Tabs Chemo Med Study Drug* 0 mg PO DAILY@0730 [facility] Last Admin: 08/06/20 08:05 Dose: 200 mg Documented by: Admin: 08/05/20 15:09 Dose: Not Given Documented by: MIKE Pantoprazole Sodium (Protonix) 40 mg PO ACBREAKFAST [facility] Last Admin: 08/06/20 08:04 Dose: 40 mg Documented by: Admin: 08/05/20 12:14 Dose: Not Given Documented by: MIKE Rosuvastatin Calcium (Crestor) 40 mg PO BEDTIME [facility] Last Admin: 08/05/20 21:43 Dose: 40 mg Documented by: KAITLIN Sodium Chloride (Saline Flush) 10 ml FLUSH Q8HR PRN PRN Reason: keep vein open Last Admin: 08/05/20 01:05 Dose: 10 ml Documented by: ALTHEAESIL Sodium Chloride (Yell Nasal [place]) 0 ml NASBOTH Q2H PRN PRN Reason: dry nose Vancomycin HCl (Pharmacy To Dose - Vancomycin) 1 dose .XX ASDIRECTED [facility] Labs: Laboratory Tests 08/04/20 08/04/20 08/04/20 Range/Units 19:00 19:00 19:00 WBC 7.69 (5.00-10.00) 10^3/uL RBC 4.62 (4.50-6.00) 10^6/uL Hgb 13.1 (13.0-17.0) g/dL Hct 38.2 L (40.0-52.0) % MCV 82.7 (82.0-92.0) fL MCH 28.4 (27.0-31.0) pg MCHC 34.3 (32.0-36.0) g/dL RDW 15.9 H (11.5-14.5) % Plt Count 129 L D (150-400) 10^3/uL MPV 12.9 H (7.4-10.4) fL Add Manual Diff Yes Neutrophils % (Manual) 70 (50-70) % Band Neutrophils % 6 (4-12) % Lymphocytes % (Manual) 4 L (20-40) % Monocytes % (Manual) 20 H (2-8) % Absolute Neutrophils 5.38 Band Neutrophils # 0.46 Lymphocytes # (Manual) 0.31 Monocytes # (Manual) 1.54 Sodium 131 L (136-145) mmol/L Potassium 3.6 (3.5-5.1) mmol/L Chloride 96 L (98-107) mmol/L Carbon Dioxide 20.0 L (21.0-32.0) mmol/L Anion Gap 18.6 H (5-15) mmol/L BUN 39 H (7-18) mg/dL Creatinine 1.42 H (0.51-1.17) mg/dL Est Cr Clr Drug Dosing 55.41 mL/min Estimated GFR (MDRD) 50 mL/min Glucose 172 H (70-140) mg/dL Lactic Acid 1.6 (0.4-2.0) mmol/L Calcium 8.8 (8.7-10.3) mg/dL Total Bilirubin 0.6 (0.2-1.0) mg/dL AST 21 (15-37) U/L ALT 19 (14-63) U/L Alkaline Phosphatase 58 (46-116) U/L C-Reactive Protein (0.0-0.9) mg/dL Total Protein 6.4 (6.4-8.2) g/dL Albumin 2.34 L (3.40-5.00) g/dL SARS CoV-2 RNA Rapid LEDA (NEGATIVE) 08/04/20 08/04/20 Range/Units 19:00 20:20 WBC (5.00-10.00) 10^3/uL RBC (4.50-6.00) 10^6/uL Hgb (13.0-17.0) g/dL Hct (40.0-52.0) % MCV (82.0-92.0) fL MCH (27.0-31.0) pg MCHC (32.0-36.0) g/dL RDW (11.5-14.5) % Plt Count (150-400) 10^3/uL MPV (7.4-10.4) fL Add Manual Diff Neutrophils % (Manual) (50-70) % Band Neutrophils % (4-12) % Lymphocytes % (Manual) (20-40) % Monocytes % (Manual) (2-8) % Absolute Neutrophils Band Neutrophils # Lymphocytes # (Manual) Monocytes # (Manual) Sodium (136-145) mmol/L Potassium (3.5-5.1) mmol/L Chloride (98-107) mmol/L Carbon Dioxide (21.0-32.0) mmol/L Anion Gap (5-15) mmol/L BUN (7-18) mg/dL Creatinine (0.51-1.17) mg/dL Est Cr Clr Drug Dosing mL/min Estimated GFR (MDRD) mL/min Glucose (70-140) mg/dL Lactic Acid (0.4-2.0) mmol/L Calcium (8.7-10.3) mg/dL Total Bilirubin (0.2-1.0) mg/dL AST (15-37) U/L ALT (14-63) U/L Alkaline Phosphatase (46-116) U/L C-Reactive Protein 11.9 H (0.0-0.9) mg/dL Total Protein (6.4-8.2) g/dL Albumin (3.40-5.00) g/dL SARS CoV-2 RNA Rapid LEDA Positive H (NEGATIVE) Meds: Medications Generic Name Dose Route Start Last Admin Trade Name Freq PRN Reason Stop Dose Admin Acetaminophen 650 mg 08/05/20 20:59 08/06/20 08:13 Tylenol PO 650 mg Q4H PRN Administration fever Acyclovir 400 mg 08/05/20 11:15 08/06/20 10:14 Zovirax PO 400 mg BID E[facility]U Administration Albuterol 0 gm 08/05/20 11:01 Ventolin Hfa INH Q4H PRN sob Allopurinol 300 mg 08/05/20 09:00 08/06/20 10:14 Zyloprim PO 300 mg QAM [facility]U Administration Apixaban 5 mg 08/05/20 11:15 08/06/20 10:14 Eliquis PO 5 mg BID E[facility]U Administration Ceftriaxone Sodium 1 gm 08/05/20 21:00 08/05/20 21:30 Rocephin IVPUSH 1 gm Q24H [facility]U Administration Cholecalciferol 50 mcg 08/05/20 21:00 08/05/20 21:43 Vitamin D3 PO 50 mcg BEDTIME E[facility]U Administration Dextrose/Water 50 ml 08/05/20 11:32 Dextrose 50% In Water IV ASDIRECTED PRN Hypoglycemia Diltiazem HCl 240 mg 08/05/20 12:00 08/06/20 12:07 Dilacor Xr PO 240 mg DAILY@1200 [facility] Administration Fluticasone Propionate 0 gm 08/05/20 11:01 08/06/20 10:15 Flonase NASBOTH 1 spray BID E[facility]U Administration Glucagon 1 mg 08/05/20 11:32 Glucagen IM ASDIRECTED PRN Hypoglycemia Guaifenesin/Codeine Phosphate 5 ml 08/05/20 11:01 08/05/20 17:56 Robitussin Ac PO 5 ml Q4H PRN Administration Cough Vancomycin HCl 1.25 gm/ Sodium 250 mls @ 166.667 mls/hr 08/04/20 22:00 08/06/20 10:17 Chloride IV 166.667 mls/hr Q12H [facility]U Administration Sodium Chloride 100 mls @ 100 mls/hr 08/04/20 22:00 08/05/20 10:44 Normal Saline IV 100 mls/hr ASDIRECTED [facility]U Administration Azithromycin 250 mg/ Sodium 250 mls @ 250 mls/hr 08/05/20 21:30 08/05/20 21:37 Chloride IV 250 mls/hr Q24H [facility]U Administration Sodium Chloride 1,000 mls @ 75 mls/hr 08/05/20 13:00 08/06/20 08:28 Normal Saline IV 125 mls/hr ASDIRECTED [facility]U Administration Insulin Aspart 0 unit 08/05/20 12:00 08/06/20 12:08 Novolog SUBCUT 2 units WITHMEALSANDBED E[facility]U Administration Protocol Loperamide HCl 2 mg 08/06/20 09:36 Imodium PO Q4H PRN Diarrhea Losartan Potassium 100 mg 08/05/20 21:00 08/05/20 20:47 Cozaar PO Not Given BEDTIME E[facility]U Montelukast Sodium 10 mg 08/05/20 21:00 08/05/20 21:43 Singulair PO 10 mg BEDTIME E[facility]U Administration Nitroglycerin 0.4 mg 08/05/20 11:30 Nitrostat SL ASDIRECTED PRN chest pain Imbruvica 140 Mg * 0 mg 08/05/20 07:30 08/06/20 08:08 Chemo Med Study PO 140 mg Drug ACBREAKFAST E[facility]U Administration [place]oclax 100mg 0 mg 08/05/20 07:30 08/06/20 08:05 Tabs Chemo Med PO 200 mg Study Drug* DAILY@0730 E[facility]U Administration Pantoprazole Sodium 40 mg 08/05/20 07:30 08/06/20 08:04 Protonix PO 40 mg ACBREAKFAST E[facility]U Administration Rosuvastatin Calcium 40 mg 08/05/20 21:00 08/05/20 21:43 Crestor PO 40 mg BEDTIME E[facility]U Administration Sodium Chloride 10 ml 08/04/20 19:00 08/05/20 01:05 Saline Flush FLUSH 10 ml Q8HR PRN Administration keep vein open Sodium Chloride 0 ml 08/05/20 11:11 Yell Nasal [place]key[place] NASBOTH Q2H PRN dry nose Vancomycin HCl 1 dose 08/04/20 21:09 Pharmacy To Dose - Vancomycin .XX ASDIRECTED E[facility]U Discontinued Medications Generic Name Dose Route Start Last Admin Trade Name Freq PRN Reason Stop Dose Admin Acetaminophen 650 mg 08/05/20 11:45 08/05/20 17:54 Tylenol PO 650 mg Q6H PRN Administration fever or pain Ceftriaxone Sodium 1 gm 08/04/20 20:56 08/04/20 21:23 Rocephin IVPUSH 08/04/20 20:57 1 gm ONETIME ONE Administration Sodium Chloride 1,000 mls @ 999 mls/hr 08/04/20 19:07 08/04/20 19:44 Normal Saline IV 08/04/20 20:07 999 mls/hr .BOLUS ONE Administration Piperacillin Sod/Tazobactam 100 mls @ 200 mls/hr 08/04/20 20:49 08/05/20 00:01 Sod 3.375 gm/ Sodium Chloride IV 08/04/20 21:18 Not Given Q6H ONE Azithromycin 500 mg/ Sodium 250 mls @ 250 mls/hr 08/04/20 20:56 08/04/20 21:32 Chloride IV 08/04/20 21:55 250 mls/hr ONETIME ONE Administration Sodium Chloride Confirm 08/04/20 21:50 08/04/20 22:01 Normal Saline Administered 08/04/20 21:51 Not Given Dose 100 mls @ as directed .ROUTE .STK-MED ONE Sodium Chloride 100 mls @ 200 mls/hr 08/04/20 22:15 08/04/20 22:08 Normal Saline IV 200 mls/hr ASDIRECTED E[facility]U Administration Sodium Chloride 1,000 mls @ 999 mls/hr 08/05/20 11:47 08/05/20 12:31 Normal Saline IV 08/05/20 12:47 999 mls/hr .BOLUS ONE Administration Iopamidol 75 ml 08/04/20 22:06 08/04/20 22:08 Isovue-370 (76%) IVPUSH 08/04/20 22:07 75 ml ONETIME ONE Administration Nitroglycerin 0.4 mg 08/05/20 11:15 Nitrostat SL ASDIRECTED E[facility]U Non-Formulary Medication 200 mg 08/05/20 21:00 Ubidecarenone [Co Q-10] PO BEDTIME E[facility]U Non-Formulary Medication 220 mg 08/05/20 11:15 08/05/20 14:02 Zinc Sulfate [Zinc Sulfate] PO Not Given DAILY [facility] - Re-Assessments/Exams Free Text/Narrative Re-Assessment/Exam: 08/04/20 20:59 CXR shows hazy pulmonary opacities and consolidation of bilat lung bases. Sats are 95% on 5 liters nasal cannula. Discussed findings with patient and his and they agree with admission. Discussed case with Darcy Mccabe NP. After discussing with Dr. Pinzon, they want a CT to ruleout PE. Patient is taking Eliquis daily but with his recent Covid will check. Covid is positive which is likely from his recent infection. Patient stable and feeling better with the oxygen. Departure - Departure Time of Disposition: 12:23 Disposition: Admitted As Inpatient 68 Condition: Good Clinical Impression: Hypoxemia requiring supplemental oxygen, Pulmonary infiltrates on CXR, CLL (chronic lymphocytic leukemia) CAP (community acquired pneumonia) Qualifiers: Laterality: right Lung location: lower lobe of lung Qualified Code(s): J18.9 - Pneumonia, unspecified organism - Discharge Information Sepsis Event Note (ED) - Evaluation Sepsis Screening Result: Possible Sepsis Risk
[2020-08-04] MEDS ORDERED: Sodium Chloride 0.9% 1,000 ML IV ONE (19:07)
[2020-08-04 19:41] LABS: ANION GAP 18.6 mmol/L (5-15)
[2020-08-04] MEDS ORDERED: Piperacillin/Tazobactam 3.375 GM in Sodium Chloride 0.9% 100 ML IV ONE (20:49)
[2020-08-04] MEDS ORDERED: Azithromycin 500 MG in Sodium Chloride 0.9% 250 ML IV ONE (20:56)
[2020-08-04] MEDS ORDERED: cefTRIAXone 1 GM Vial IVPUSH ONE (20:56)
[2020-08-04] MEDS ORDERED: Sodium Chloride 0.9% 100 ML ONE (21:50)
[2020-08-04] MEDS ORDERED: Sodium Chloride 0.9% 100 ML IV SCH ×2 (22:00→22:15)
[2020-08-04] MEDS ORDERED: Iopamidol 755 Mg/ML 75 ML Bottle IVPUSH ONE (22:06)
--- NOTE | 2020-08-05 08:24 | CT ---
[id number] CT/CTA Chest Exam: CTA Chest Clinical Data: HYPOXEMIA SHORTNESS OF BREATH COMPARISON: CORRELATION IS MADE WITH JULY 22, 2020 FINDINGS: Bilateral infiltrates have increased since the last exam There is no pulmonary embolus There is no mediastinal mass or adenopathy The great vessels are intact IMPRESSION: NO PULMONARY EMBOLUS INCREASING PNEUMONIA Micheal Rahman MD 08/05/20 0823 Thank you for allowing us to participate in the care of your patient.
[2020-08-05] MEDS ORDERED: Albuterol 8 GM Inhaler INH PRN (11:01)
[2020-08-05] MEDS ORDERED: Sodium Chloride 0.65% Nasal Spray 45 ML Bottle NASBOTH PRN (11:11)
[2020-08-05] MEDS ORDERED: ZINC SULFATE 220 MG PO SCH (11:15)
[2020-08-05] MEDS ORDERED: Nitroglycerin 0.4 MG Tab.SL SL SCH (11:15)
[2020-08-05 11:22] LABS: ANION GAP 17.6 mmol/L (5-15)
--- NOTE | 2020-08-05 11:23 | PCM.HP.2 ---
H&P History of Present Illness - General Date of Service: 08/05/20 Admit Problem/Dx: Admission Diagnosis/Problem Admission Diagnosis/Problem CAP (community acquired pneumonia) due to MSSA ( methicillin sensitive Staphylococcus aureus) Source of Information: Patient - History of Present Illness Initial Comments - Free Text/Narative: 69 year old male patient admitted inpatient to med/surg floor for bilateral pneumonia, post COVID on 07/16/2020. He was given outpatient BAM and then admitted for inpatient - Related Data Allergies/Adverse Reactions: Allergies Allergy/AdvReac Type Severity Reaction Status Date / Time No Known Drug Allergies Allergy Other Verified 08/04/20 18:54 Home Medications: Home Meds Losartan [Cozaar] 100 mg PO BEDTIME 02/03/19 [History] Montelukast [Singulair] 10 mg PO BEDTIME 02/03/19 [History] metFORMIN HCl [Glucophage] 1,000 mg PO BID 02/03/19 [History] Cholecalciferol (Vitamin D3) [Vitamin D3] 2,000 unit PO BEDTIME 05/14/19 [History] Fluticasone Propionate [Flonase] 1 spray NASBOTH BID PRN 05/14/19 [History] Rosuvastatin Calcium [Crestor] 40 mg PO BEDTIME 05/14/19 [History] Ubidecarenone [Co Q-10] 200 mg PO BEDTIME 05/14/19 [History] Albuterol [Ventolin HFA] 1 puff IH DAILY PRN 12/09/19 [History] Pantoprazole Sodium [Protonix] 40 mg PO ACBREAKFAST 12/09/19 [History] Acyclovir [Zovirax] 400 mg PO BID 05/19/20 [History] Ibrutinib [Imbruvica] 140 mg PO ACBREAKFAST 05/19/20 [History] Sulfamethoxazole/Trimethoprim [Sulfamethoxazole-Tmp Ds Tablet] 1 each PO MOWEFR 05/19/20 [History] Apixaban [Eliquis] 5 mg PO BID #60 tablet 05/21/20 [Rx] Allopurinol [Zyloprim] 300 mg PO QAM 07/22/20 [History] Codeine Phosphate/Guaifenesin [Guaiatussin AC Liquid] 5 ml PO Q4H PRN 07/22/20 [History] Diltiazem HCl [Diltiazem 24Hr Cd] 240 mg PO DAILY@1200 07/22/20 [History] Venetoclax [Venclexta] 200 mg PO QAM 07/22/20 [History] Zinc Sulfate 220 mg PO DAILY 07/22/20 [History] Nitroglycerin 0.4 mg SL ASDIRECTED #10 tab.subl 07/26/20 [Rx] Insulin Aspart [NovoLOG] 0 unit SQ WITHMEALSANDBED 08/04/20 [History] Past Medical History HEENT History: Reports: Hard of Hearing, Impaired Vision Other HEENT History: wears glasses Cardiovascular History: Reports: High Cholesterol, Hypertension Other Cardiovascular History: [place]at[place] coronary artery calcium score greater than 400 Respiratory History: Reports: Asthma, Intubation, Difficult, Intubation, Previous, Other (See Below) Other Respiratory History: Restrictive lung disease Gastrointestinal History: Reports: Diverticulosis, GERD, Other (See Below) Other Gastrointestinal History: "loose stools from metformin". tubular adenoma of colon. sigmoid diverticulosis Genitourinary History: Reports: Other (See Below) Other Genitourinary History: renal mass. Stage 3a chronic kidney disease. elevated PSA Musculoskeletal History: Reports: Gout, Osteoarthritis Neurological History: Reports: Neuropathy, Peripheral Other Neuro History: Polyneuropathy stable Psychiatric History: Reports: None Endocrine/Metabolic History: Reports: Diabetes, Type II, Vitamin D Deficiency Other Endocrine/Metabolic History: Magnesium metabolism disorder Hematologic History: Reports: Anticoagulation Therapy, Other (See Below) Other Hematologic History: current Vt D deficient Oncologic (Cancer) History: Reports: Leukemia, Renal, Other (See Below) Other Oncologic History: Chronic Lymphatic Leukemia Dermatologic History: Reports: None - Infectious Disease History Infectious Disease History: Reports: None, Chicken Pox, Measles, Mumps, Novel Coronavirus, Pertussis (Whooping Cough), Shingles Other Infectious Disease History: 07/10/20: Covid - Past Surgical History HEENT Surgical History: Reports: Adenoidectomy, Tonsillectomy Cardiovascular Surgical History: Reports: None GI Surgical History: Reports: Appendectomy Male Surgical History: Reports: None Musculoskeletal Surgical History: Reports: Knee Replacement Other Musculoskeletal Surgeries/Procedures:: R Dermatological Surgical History: Reports: None Social & Family History - Family History Family Medical History: No Pertinent Family History - Tobacco Use Tobacco Use Status *Q: Former Tobacco User Years of Tobacco use: 10 Packs/Tins Daily: 0.1 Used Tobacco, but Quit: No Month/Year Tobacco Last Used: 1979 - Caffeine Use Caffeine Use: Reports: None - Recreational Drug Use Recreational Drug Use: No H&P Review of Systems - Review of Systems: Review Of Systems: See Below General: Reports: Fever, Weakness, Fatigue, Decreased Appetite, Weight Loss HEENT: Reports: Glasses, Headaches, Other (nose is dry). Denies: Dysphasia Pulmonary: Reports: Shortness of Breath, Cough, Sputum. Denies: Wheezing Cardiovascular: Denies: Chest Pain, Palpitations, Edema Gastrointestinal: Reports: Diarrhea (four episodes overnight). Denies: Abdominal Pain, Constipation, Nausea, Vomiting Genitourinary: Denies: Dysuria, Frequency, Urgency Musculoskeletal: Reports: Muscle Pain. Denies: Joint Pain, Joint Swelling Psychiatric: Denies: Confusion, Depression, Anxiety Neurological: Reports: Headache. Denies: Confusion, Trouble Speaking, Difficulty Walking, Change in Speech Exam - Exam Exam: See Below - Vital Signs Vital Signs: Last Vital Signs Temp 38.3 C H 08/05/20 10:53 Pulse 97 08/05/20 10:53 Resp 21 H 08/05/20 10:53 BP 140/81 08/05/20 10:53 Pulse Ox 91 L 08/05/20 10:53 Weight: 86.636 kg - Exam Physical Exam Comments:: GENERAL: Ill-appearing adult, sitting up in bed, in no acute distress. in room. HEENT: Normocephalic, atraumatic. Conjunctiva clear. Nares patent without discharge. Mucous membranes mildly dry, posterior pharynx unremarkable. NECK: Supple, no masses. CV: Regular rate and rhythm, no murmurs, rubs, or gallops. 2+ radial pulses. PULMONARY: Normal effort, crackles in bilateral bases, no wheezes or rhonchi. ABDOMEN: Positive bowel sounds, soft, nontender, nondistended. EXTREMITIES: No edema, cyanosis, or clubbing. MUSCULOSKELETAL: Moves all extremities well. NEUROLOGICAL: No obvious deficits. DERMATOLOGIC: No rashes or suspicious lesions in exposed areas. PSYCHIATRIC: Alert, interactive, appropriate affect. - Patient Data Lab Results Last 24 hrs: Laboratory Results - last 24 hr 08/04/20 08/04/20 08/04/20 Range/Units 19:00 19:00 19:00 WBC 7.69 (5.00-10.00) 10^3/uL RBC 4.62 (4.50-6.00) 10^6/uL Hgb 13.1 (13.0-17.0) g/dL Hct 38.2 L (40.0-52.0) % MCV 82.7 (82.0-92.0) fL MCH 28.4 (27.0-31.0) pg MCHC 34.3 (32.0-36.0) g/dL RDW 15.9 H (11.5-14.5) % Plt Count 129 L D (150-400) 10^3/uL MPV 12.9 H (7.4-10.4) fL Immature Gran % (Auto) (0.0-5.0) % Neut % (Auto) (50.0-70.0) % Lymph % (Auto) (20.0-40.0) % [place] % (Auto) (2.0-8.0) % Eos % (Auto) (1.0-3.0) % Baso % (Auto) (0.0-1.0) % Neut # (Auto) (2.50-7.00) 10^3/uL Lymph # (Auto) (1.00-4.00) 10^3/uL [place] # (Auto) (0.10-0.80) 10^3/uL Eos # (Auto) (0.10-0.30) 10^3/uL Baso # (Auto) (0.00-0.10) 10^3/uL Immature Gran # (Auto) (0.00-0.50) 10^3/uL Add Manual Diff Yes Neutrophils % (Manual) 70 (50-70) % Band Neutrophils % 6 (4-12) % Lymphocytes % (Manual) 4 L (20-40) % Monocytes % (Manual) 20 H (2-8) % Absolute Neutrophils 5.38 Band Neutrophils # 0.46 Lymphocytes # (Manual) 0.31 Monocytes # (Manual) 1.54 Sodium 131 L (136-145) mmol/L Potassium 3.6 (3.5-5.1) mmol/L Chloride 96 L (98-107) mmol/L Carbon Dioxide 20.0 L (21.0-32.0) mmol/L Anion Gap 18.6 H (5-15) mmol/L BUN 39 H (7-18) mg/dL Creatinine 1.42 H (0.51-1.17) mg/dL Est Cr Clr Drug Dosing 55.41 mL/min Estimated GFR (MDRD) 50 mL/min Glucose 172 H (70-140) mg/dL POC Glucose (74-100) mg/dL Lactic Acid 1.6 (0.4-2.0) mmol/L Calcium 8.8 (8.7-10.3) mg/dL Total Bilirubin 0.6 (0.2-1.0) mg/dL AST 21 (15-37) U/L ALT 19 (14-63) U/L Alkaline Phosphatase 58 (46-116) U/L C-Reactive Protein (0.0-0.9) mg/dL Total Protein 6.4 (6.4-8.2) g/dL Albumin 2.34 L (3.40-5.00) g/dL SARS CoV-2 RNA Rapid LEDA (NEGATIVE) 08/04/20 08/04/20 08/05/20 Range/Units 19:00 20:20 08:29 WBC (5.00-10.00) 10^3/uL RBC (4.50-6.00) 10^6/uL Hgb (13.0-17.0) g/dL Hct (40.0-52.0) % MCV (82.0-92.0) fL MCH (27.0-31.0) pg MCHC (32.0-36.0) g/dL RDW (11.5-14.5) % Plt Count (150-400) 10^3/uL MPV (7.4-10.4) fL Immature Gran % (Auto) (0.0-5.0) % Neut % (Auto) (50.0-70.0) % Lymph % (Auto) (20.0-40.0) % [place] % (Auto) (2.0-8.0) % Eos % (Auto) (1.0-3.0) % Baso % (Auto) (0.0-1.0) % Neut # (Auto) (2.50-7.00) 10^3/uL Lymph # (Auto) (1.00-4.00) 10^3/uL [place] # (Auto) (0.10-0.80) 10^3/uL Eos # (Auto) (0.10-0.30) 10^3/uL Baso # (Auto) (0.00-0.10) 10^3/uL Immature Gran # (Auto) (0.00-0.50) 10^3/uL Add Manual Diff Neutrophils % (Manual) (50-70) % Band Neutrophils % (4-12) % Lymphocytes % (Manual) (20-40) % Monocytes % (Manual) (2-8) % Absolute Neutrophils Band Neutrophils # Lymphocytes # (Manual) Monocytes # (Manual) Sodium (136-145) mmol/L Potassium (3.5-5.1) mmol/L Chloride (98-107) mmol/L Carbon Dioxide (21.0-32.0) mmol/L Anion Gap (5-15) mmol/L BUN (7-18) mg/dL Creatinine (0.51-1.17) mg/dL Est Cr Clr Drug Dosing mL/min Estimated GFR (MDRD) mL/min Glucose (70-140) mg/dL POC Glucose 197 H (74-100) mg/dL Lactic Acid (0.4-2.0) mmol/L Calcium (8.7-10.3) mg/dL Total Bilirubin (0.2-1.0) mg/dL AST (15-37) U/L ALT (14-63) U/L Alkaline Phosphatase (46-116) U/L C-Reactive Protein 11.9 H (0.0-0.9) mg/dL Total Protein (6.4-8.2) g/dL Albumin (3.40-5.00) g/dL SARS CoV-2 RNA Rapid LEDA Positive H (NEGATIVE) 08/05/20 Range/Units 11:00 WBC 6.22 (5.00-10.00) 10^3/uL RBC 4.20 L (4.50-6.00) 10^6/uL Hgb 12.1 L (13.0-17.0) g/dL Hct 34.7 L (40.0-52.0) % MCV 82.6 (82.0-92.0) fL MCH 28.8 (27.0-31.0) pg MCHC 34.9 (32.0-36.0) g/dL RDW 15.9 H (11.5-14.5) % Plt Count 99 L (150-400) 10^3/uL MPV 11.6 H (7.4-10.4) fL Immature Gran % (Auto) 0.8 (0.0-5.0) % Neut % (Auto) 79.2 H (50.0-70.0) % Lymph % (Auto) 4.7 L (20.0-40.0) % [place] % (Auto) 15.1 H (2.0-8.0) % Eos % (Auto) 0.0 L (1.0-3.0) % Baso % (Auto) 0.2 (0.0-1.0) % Neut # (Auto) 4.93 (2.50-7.00) 10^3/uL Lymph # (Auto) 0.29 L (1.00-4.00) 10^3/uL [place] # (Auto) 0.94 H (0.10-0.80) 10^3/uL Eos # (Auto) 0.00 L (0.10-0.30) 10^3/uL Baso # (Auto) 0.01 (0.00-0.10) 10^3/uL Immature Gran # (Auto) 0.05 (0.00-0.50) 10^3/uL Add Manual Diff Neutrophils % (Manual) (50-70) % Band Neutrophils % (4-12) % Lymphocytes % (Manual) (20-40) % Monocytes % (Manual) (2-8) % Absolute Neutrophils Band Neutrophils # Lymphocytes # (Manual) Monocytes # (Manual) Sodium (136-145) mmol/L Potassium (3.5-5.1) mmol/L Chloride (98-107) mmol/L Carbon Dioxide (21.0-32.0) mmol/L Anion Gap (5-15) mmol/L BUN (7-18) mg/dL Creatinine (0.51-1.17) mg/dL Est Cr Clr Drug Dosing mL/min Estimated GFR (MDRD) mL/min Glucose (70-140) mg/dL POC Glucose (74-100) mg/dL Lactic Acid (0.4-2.0) mmol/L Calcium (8.7-10.3) mg/dL Total Bilirubin (0.2-1.0) mg/dL AST (15-37) U/L ALT (14-63) U/L Alkaline Phosphatase (46-116) U/L C-Reactive Protein (0.0-0.9) mg/dL Total Protein (6.4-8.2) g/dL Albumin (3.40-5.00) g/dL SARS CoV-2 RNA Rapid LEDA (NEGATIVE) Result Diagrams: 08/05/20 11:00 08/05/20 11:00 Sepsis Event Note - Evaluation Sepsis Screening Result: No Definite Risk - Focused Exam Vital Signs: Vital Signs Temp Temp Pulse Resp BP Pulse Ox 08/05/20 10:53 38.3 C H 97 21 H 140/81 91 L 08/05/20 08:15 38.1 C 08/05/20 07:00 36.7 C 97 20 149/79 H 92 L 08/05/20 02:55 37.1 C 97 22 H 141/82 H 92 L 08/04/20 23:30 36.7 C Problem List Initiated/Reviewed/Updated: Yes Orders Last 24hrs: Active Orders 24 hr Category Date Time Status Admission Status [Patient Status] [ADT] Routine ADT 08/04/20 21:07 Active Patient Status [ADT] Routine ADT 08/05/20 10:55 Active Communication Order [RC] PRN Care 08/05/20 11:12 Active Dietary Supplements [RC] ACBED Care 08/05/20 08:16 Active EKG Documentation Completion [RC] ASDIRECTED Care 08/04/20 19:08 Active Incentive Spirometry [RT Incentive Spirometry] [RC] Care 08/05/20 11:11 Active Q1HWA Intake and Output [RC] QSHIFT Care 08/05/20 10:56 Active Oxygen Therapy [RC] PRN Care 08/05/20 10:55 Active RT Post Treatment Assessment [RC] Click to Edit Care 08/05/20 11:10 Active RT Pre-Treatment Assessment [RC] Click to Edit Care 08/05/20 11:10 Active Up With Assistance [RC] ASDIRECTED Care 08/05/20 10:55 Active VTE/DVT Education [RC] PER UNIT ROUTINE Care 08/05/20 10:55 Active Vital Signs [RC] Q4H Care 08/05/20 10:55 Active [employer] Diet [DIET] Diet 08/05/20 Breakfast Active Chest 2V [CR] Stat Exams 08/04/20 18:57 Ordered BMP [BASIC METABOLIC PANEL,BMP] [CHEM] Routine Lab 08/05/20 09:57 Ordered CULTURE BLOOD [BC] Stat Lab 08/04/20 19:35 Received CULTURE BLOOD [BC] Stat Lab 08/04/20 19:50 Received VANCOMYCIN TROUGH [CHEM] Timed Lab 08/06/20 09:00 Ordered Acyclovir [Zovirax] Med 08/05/20 11:15 Active 400 mg PO BID Albuterol [Ventolin HFA] Med 08/05/20 11:01 Active 0 gm INH Q4H PRN Apixaban [Eliquis] Med 08/05/20 11:15 Active 5 mg PO BID Azithromycin [Zithromax] 250 mg Med 08/05/20 21:30 Active Sodium Chloride 0.9% [Normal Saline] 250 ml IV Q24H Cholecalciferol (Vitamin D3) [Vitamin D3] Med 08/05/20 21:00 Active 50 mcg PO BEDTIME Codeine/guaiFENesin [Robitussin AC] Med 08/05/20 11:01 Active 5 ml PO Q4H PRN Diltiazem [Dilacor XR] Med 08/05/20 12:00 Active 240 mg PO DAILY@1200 Fluticasone Propionate [Flonase] Med 08/05/20 11:01 Active 0 gm NASBOTH BID Ibrutinib [Imbruvica] Med 08/05/20 07:30 Ordered 140 mg PO ACBREAKFAST Losartan [Cozaar] Med 08/05/20 21:00 Active 100 mg PO BEDTIME Montelukast [Singulair] Med 08/05/20 21:00 Active 10 mg PO BEDTIME Nitroglycerin [Nitrostat] Med 08/05/20 11:30 Active 0.4 mg SL ASDIRECTED PRN Pantoprazole [ProTONIX] Med 08/05/20 07:30 Active 40 mg PO ACBREAKFAST Pharmacy to Dose - Vancomycin Med 08/04/20 21:09 Pending 1 dose .XX ASDIRECTED Rosuvastatin [Crestor] Med 08/05/20 21:00 Active 40 mg PO BEDTIME Sodium Chloride 0.65% [[place] Nasal [place]] Med 08/05/20 11:11 Ordered 1 ml NASBOTH Q2H PRN Sodium Chloride 0.9% [Normal Saline] 100 ml Med 08/04/20 22:00 Active IV ASDIRECTED Sodium Chloride 0.9% [Normal Saline] 100 ml Med 08/04/20 22:15 Active IV ASDIRECTED Sodium Chloride 0.9% [Saline Flush] Med 08/04/20 19:00 Active 10 ml FLUSH Q8HR PRN Ubidecarenone [Co Q-10] Med 08/05/20 21:00 Ordered 200 mg PO BEDTIME Vancomycin 1.25 gm Med 08/04/20 22:00 Active Sodium Chloride 0.9% [Normal Saline] 250 ml IV Q12H Venetoclax [Venclexta] Med 08/05/20 09:00 Ordered 200 mg PO QAM Zinc Sulfate [Zinc Sulfate] Med 08/05/20 11:15 Ordered 220 mg PO DAILY allopurinoL [Zyloprim] Med 08/05/20 09:00 Active 300 mg PO QAM cefTRIAXone [Rocephin] Med 08/05/20 21:00 Active 1 gm IVPUSH Q24H Blood Culture x2 Reflex Set [OM.PC] Stat Oth 08/04/20 18:57 Ordered Saline Lock Insert [OM.PC] Routine Oth 08/04/20 19:00 Ordered Resuscitation Status Routine Resus Stat 08/05/20 10:55 Ordered EKG 12 Lead [EK] Stat Ther 08/04/20 19:07 Ordered Medication Orders Acyclovir (Zovirax) 400 mg PO BID ESAU Albuterol (Ventolin Hfa) 0 gm INH Q4H PRN PRN Reason: sob Allopurinol (Zyloprim) 300 mg PO QAM ESAU Apixaban (Eliquis) 5 mg PO BID ESAU Ceftriaxone Sodium (Rocephin) 1 gm IVPUSH Q24H ESAU Cholecalciferol (Vitamin D3) 50 mcg PO BEDTIME ESAU Diltiazem HCl (Dilacor Xr) 240 mg PO DAILY@1200 ESAU Fluticasone Propionate (Flonase) 0 gm NASBOTH BID ESAU Guaifenesin/Codeine Phosphate (Robitussin Ac) 5 ml PO Q4H PRN PRN Reason: Cough Vancomycin HCl 1.25 gm/ Sodium (Chloride) 250 mls @ 166.667 mls/hr IV Q12H ESAU Last Admin: 08/05/20 10:44 Dose: 166.667 mls/hr Documented by: Admin: 08/04/20 23:04 Dose: 166.667 mls/hr Documented by: ROSALBA Sodium Chloride (Normal Saline) 100 mls @ 100 mls/hr IV ASDIRECTED ESAU Last Admin: 08/05/20 10:44 Dose: 100 mls/hr Documented by: MIKE Sodium Chloride (Normal Saline) 100 mls @ 200 mls/hr IV ASDIRECTED ESAU Last Admin: 08/04/20 22:08 Dose: 200 mls/hr Documented by: RAEGAN Azithromycin 250 mg/ Sodium (Chloride) 250 mls @ 250 mls/hr IV Q24H ESAU Losartan Potassium (Cozaar) 100 mg PO BEDTIME ESAU Montelukast Sodium (Singulair) 10 mg PO BEDTIME ESAU Nitroglycerin (Nitrostat) 0.4 mg SL ASDIRECTED PRN PRN Reason: chest pain Non-Formulary Medication (Ibrutinib [Imbruvica]) 140 mg PO ACBREAKFAST ESAU Non-Formulary Medication (Ubidecarenone [Co Q-10]) 200 mg PO BEDTIME ESAU Non-Formulary Medication (Venetoclax [Venclexta]) 200 mg PO QAM ESAU Non-Formulary Medication (Zinc Sulfate [Zinc Sulfate]) 220 mg PO DAILY ESAU Pantoprazole Sodium (Protonix) 40 mg PO ACBREAKFAST ESAU Rosuvastatin Calcium (Crestor) 40 mg PO BEDTIME ESAU Sodium Chloride (Saline Flush) 10 ml FLUSH Q8HR PRN PRN Reason: keep vein open Last Admin: 08/05/20 01:05 Dose: 10 ml Documented by: CALESIL Sodium Chloride ([place] Nasal [place]) 1 ml NASBOTH Q2H PRN PRN Reason: dry nose Vancomycin HCl (Pharmacy To Dose - Vancomycin) 1 dose .XX ASDIRECTED [facility] Assessment/Plan Comment:: HPI summary: 69 year old male who presented to the ED on 08/04/2020 via private vehicle for shortness of breath, low oxygen saturation and weakness. Patient reports his oxygen saturations were in the 80s at home. COVID positive on 07/16/2020 and did receive BAM infusion and was later hospitalized for COVID pneumonia with acute hypoxic respiratory failure from 07/22/2020-07/26/2020 at which time he received remdisivir and dexamethasone. He had been feeling better up until the evening of 08/03/2020 when he noticed that he was short of breath, coughing with sputum and saturations were in the 80s. ED course: -VS: T102.9, P 99, R 27, BP 147/80, sat initially in the 87% on RA and then increased to 94% on 5L/NC -EKG shows NS tachycardia, rate 107 -CXR completed and reported by ED staff to show bilateral basilar infiltrates -BC done x 2 sets, antibiotics initiated (Vanco, Rocephin and azithromycin) -CT angiogram reveals no PE, bilateral infiltrates have increased since last exam -WBC 7.69, Hgb 13.1, Hct 38.2, Plt 129, Na 131, K 3.6, Cl 96, anion gap 18.6, lactic acid 1.6, BUN 39, creatinine 1.42, CRP 11.9; COVID positive Hospital course: 08/05/2020: No overnight concerns noted by nursing. Patient reports weakness, fatigue, productive cough, decrease in appetite, very dry nose and fever. VS: T 38.3, R 21, P 97, BP 140/81, O2 sat 91-92% on 5L/NC. WBC 6.22, Hgb 12.1, Hct 34.7, Plt 99, Na 129, K 3.6, Cl 95, anion gap 17.6, lactic acid 1.1, BUN 28, creatinine 1.24, CRP 11.9. Patient reports four episodes of diarrhea overnight and is likely volume depleted. Hospitalization problems and plan: # Acute hypoxic respiratory failure - O2 to keep sat greater than 90% - Humidify oxygen, provide saline nasal spray and vaseline for dry nose # Bilateral pneumonia, likely bacterial with fever, elevated CRP; in setting of CLL - Continue vancomycin, pharmacy to dose - Continue azithromycin and ceftriaxone - IS and pulmonary toileting - Acetaminophen for comfort/fever - Albuterol inhaler PRN - Blood cultures pending # Dehydration - NS 1000mL bolus x 1 then at rate of 125mL/hr - Push oral intake # Malnutrition with recent weight loss - [employer] consult # DM Type 2 - Blood glucose QAC and HS - Low dose SS insulin aspart # Stage 3a chronic kidney disease - IVF as above Chronic, stable conditions: #Restrictive lung disease; continue albuterol MDI and montelukast #Seasonal allergic rhinitis #[place] coronary artery calcium score greater than 400; has nitro PRN #Mixed hyperlipidemia, continue rosuvastatin, hold CoQ10 for now #Essential hypertension, continue losartan #Atrial fibrillation: continue Eliquis and diltiazem #CLL (chronic lymphocytic leukemia); continue acyclovir, ibrutinib, and venetoclax #Renal mass #Gastroesophageal reflux disease without esophagitis; continue pantoprazole #Tubular adenoma of colon #Sigmoid diverticulosis #Gout, stable #Peripheral polyneuropathy, stable #Primary osteoarthritis of knees, bilateral #Vitamin D deficiency; continue Vitamin D #Elevated PSA #Magnesium metabolism disorder #Hypogonadism male, stable #BMI 29.0-29.9,adult Hospitalization details: # FEN: NS 1000mL IV bolus, followed by maintenance of 125mL/hr; Na 129, K 3.6, Cl 95; ADA diet with press tender star signal consult for malnutrition # PPX: on eliquis # Code status: Full code # Emergency contact: Dana in room with patient and updated # Disposition: plan for discharge home after resolution of hypoxia and pneumonia approximately three to four midnights - Mortality Measure Prognosis:: Good
[2020-08-05] MEDS ORDERED: Nitroglycerin 0.4 MG Tab.SL SL PRN (11:30)
[2020-08-05] MEDS ORDERED: Glucagon,Human Recombinant 1 MG Vial IM PRN (11:32)
[2020-08-05] MEDS ORDERED: 50% Dextrose in Water 50 ML Syringe IV PRN (11:32)
[2020-08-05] MEDS ORDERED: Sodium Chloride 0.9% 1,000 ML IV ONE (11:47)
[2020-08-05] MEDS: Fluticasone Propionate Nasal Spray 16 GM Bottle NASBOTH SCH ×2 (12:06→22:02)
[2020-08-05] MEDS: Diltiazem 240 MG Cap.ER PO SCH (12:08)
[2020-08-05] MEDS: Acetaminophen 325 MG Tab PO PRN ×3 (12:08→21:48)
[2020-08-05] MEDS: Acyclovir 400 MG Tab PO SCH ×2 (12:08→21:43)
[2020-08-05] MEDS: Apixaban 5 MG Tab PO SCH ×2 (12:09→21:44)
[2020-08-05] MEDS: Allopurinol 100 MG Tab PO SCH (12:10)
[2020-08-05] MEDS: Insulin Aspart 100 Units/ML 3 ML Pen SUBCUT SCH ×3 (12:11→21:57)
[2020-08-05] MEDS: Pantoprazole 40 MG Tab.CR PO SCH (12:14)
[2020-08-05] MEDS: Sodium Chloride 0.9% 1,000 ML IV SCH ×2 (13:42→21:41)
[2020-08-05] MEDS: [UNRECOGNIZED DRUG - OTHER] PO SCH (15:09)
[2020-08-05] MEDS: [UNRECOGNIZED DRUG - OTHER] PO SCH (15:09)
[2020-08-05] MEDS: Codeine/guaiFENesin 10-100 MG/5 ML Syrup 5 ML Cup PO PRN (17:56)
[2020-08-05] MEDS: Losartan 50 MG Tab PO SCH ×2 (18:24→20:47)
[2020-08-05] MEDS ORDERED: cefTRIAXone 1 GM Vial IVPUSH SCH (21:00)
[2020-08-05] MEDS ORDERED: Non-Formulary Medication 1 Each (Ubidecarenone [Co Q-10] 200 MG) PO SCH (21:00)
[2020-08-05] MEDS ORDERED: Azithromycin 250 MG in Sodium Chloride 0.9% 250 ML IV SCH (21:30)
[2020-08-05] MEDS: Cholecalciferol (Vitamin D3) 25 MCG Tab PO SCH (21:43)
[2020-08-05] MEDS: Montelukast 10 MG Tab PO SCH (21:43)
[2020-08-05] MEDS: Rosuvastatin 10 MG Tab PO SCH (21:43)
[2020-08-06] MEDS: Acetaminophen 325 MG Tab PO PRN ×2 (02:56→08:13)
[2020-08-06 07:55] LABS: ANION GAP 13.2 mmol/L (5-15); CHLORIDE,CL 98 mmol/L (98-107); SODIUM,NA 132 mmol/L (136-145)
[2020-08-06] MEDS: Pantoprazole 40 MG Tab.CR PO SCH (08:04)
[2020-08-06] MEDS: [UNRECOGNIZED DRUG - OTHER] PO SCH (08:05)
[2020-08-06] MEDS: Insulin Aspart 100 Units/ML 3 ML Pen SUBCUT SCH ×4 (08:07→21:09)
[2020-08-06] MEDS: [UNRECOGNIZED DRUG - OTHER] PO SCH (08:08)
[2020-08-06] MEDS: Sodium Chloride 0.9% 1,000 ML IV SCH (08:28)
--- NOTE | 2020-08-06 10:04 | PCM.PN ---
- General Info Date of Service: 08/06/20 Subjective Update: 69 year old male offers no concerns. He states his diarrhea is improved since yesterday. He reports some mild improvement in weakness and shortness of breath. Functional Status: Reports: Pain Controlled, Tolerating Diet (tolerating, but no appetite), Ambulating, Urinating, Incentive Spirometry - Review of Systems General: Reports: Fever, Weakness, Fatigue. Denies: Chills, Appetite (no appeti te) HEENT: Reports: Glasses, Headaches. Denies: Dysphasia, Sinus Congestion, Sore Throat, Rhinitis (nose has improved today) Pulmonary: Reports: Shortness of Breath (improved), Cough, Sputum Cardiovascular: Denies: Chest Pain, Palpitations, Edema, Lightheadedness Gastrointestinal: Reports: Decreased Appetite (chronic), Diarrhea (improved). Denies: Abdominal Pain, Constipation, Nausea, Vomiting Genitourinary: Reports: Frequency (with IVF). Denies: Dysuria, Pain, Urgency, Hematuria Musculoskeletal: Denies: Back Pain, Joint Pain, Joint Swelling Skin: Reports: Bruising. Denies: Jaundice, Rash Neurological: Reports: Headache. Denies: Confusion, Trouble Speaking, Difficulty Walking Psychiatric: Denies: Confusion, Depression, Anxiety - Patient Data Vitals - Most Recent: Last Vital Signs Temp 38.3 C H 08/06/20 08:13 Pulse 89 08/06/20 07:00 Resp 22 H 08/06/20 07:00 BP 143/78 H 08/06/20 07:00 Pulse Ox 94 L 08/06/20 07:00 Weight - Most Recent: 88.989 kg I&O - Last 24 Hours: Intake & Output 08/05/20 08/06/20 08/06/20 22:59 06:59 14:59 Intake Total 1960 1155 Output Total 550 Balance 1960 605 Lab Results Last 24 Hours: Laboratory Results - last 24 hr 08/05/20 08/05/20 08/05/20 Range/Units 11:00 11:00 12:00 WBC 6.22 (5.00-10.00) 10^3/uL RBC 4.20 L (4.50-6.00) 10^6/uL Hgb 12.1 L (13.0-17.0) g/dL Hct 34.7 L (40.0-52.0) % MCV 82.6 (82.0-92.0) fL MCH 28.8 (27.0-31.0) pg MCHC 34.9 (32.0-36.0) g/dL RDW 15.9 H (11.5-14.5) % Plt Count 99 L (150-400) 10^3/uL MPV 11.6 H (7.4-10.4) fL Immature Gran % (Auto) 0.8 (0.0-5.0) % Neut % (Auto) 79.2 H (50.0-70.0) % Lymph % (Auto) 4.7 L (20.0-40.0) % [place] % (Auto) 15.1 H (2.0-8.0) % Eos % (Auto) 0.0 L (1.0-3.0) % Baso % (Auto) 0.2 (0.0-1.0) % Neut # (Auto) 4.93 (2.50-7.00) 10^3/uL Lymph # (Auto) 0.29 L (1.00-4.00) 10^3/uL [place] # (Auto) 0.94 H (0.10-0.80) 10^3/uL Eos # (Auto) 0.00 L (0.10-0.30) 10^3/uL Baso # (Auto) 0.01 (0.00-0.10) 10^3/uL Immature Gran # (Auto) 0.05 (0.00-0.50) 10^3/uL Clumped Platelets Rare Sodium 129 L (136-145) mmol/L Potassium 3.6 (3.5-5.1) mmol/L Chloride 95 L (98-107) mmol/L Carbon Dioxide 20.0 L (21.0-32.0) mmol/L Anion Gap 17.6 H (5-15) mmol/L BUN 28 H (7-18) mg/dL Creatinine 1.24 H (0.51-1.17) mg/dL Est Cr Clr Drug Dosing 63.45 mL/min Estimated GFR (MDRD) 58 mL/min Glucose 290 H (70-140) mg/dL POC Glucose (74-100) mg/dL Lactic Acid 1.1 (0.4-2.0) mmol/L Calcium 8.3 L (8.7-10.3) mg/dL C-Reactive Protein (0.0-0.9) mg/dL Vancomycin Trough (18.0-26.0) ug/mL 08/05/20 08/05/20 08/05/20 Range/Units 12:02 17:50 21:55 WBC (5.00-10.00) 10^3/uL RBC (4.50-6.00) 10^6/uL Hgb (13.0-17.0) g/dL Hct (40.0-52.0) % MCV (82.0-92.0) fL MCH (27.0-31.0) pg MCHC (32.0-36.0) g/dL RDW (11.5-14.5) % Plt Count (150-400) 10^3/uL MPV (7.4-10.4) fL Immature Gran % (Auto) (0.0-5.0) % Neut % (Auto) (50.0-70.0) % Lymph % (Auto) (20.0-40.0) % [place] % (Auto) (2.0-8.0) % Eos % (Auto) (1.0-3.0) % Baso % (Auto) (0.0-1.0) % Neut # (Auto) (2.50-7.00) 10^3/uL Lymph # (Auto) (1.00-4.00) 10^3/uL [place] # (Auto) (0.10-0.80) 10^3/uL Eos # (Auto) (0.10-0.30) 10^3/uL Baso # (Auto) (0.00-0.10) 10^3/uL Immature Gran # (Auto) (0.00-0.50) 10^3/uL Clumped Platelets Sodium (136-145) mmol/L Potassium (3.5-5.1) mmol/L Chloride (98-107) mmol/L Carbon Dioxide (21.0-32.0) mmol/L Anion Gap (5-15) mmol/L BUN (7-18) mg/dL Creatinine (0.51-1.17) mg/dL Est Cr Clr Drug Dosing mL/min Estimated GFR (MDRD) mL/min Glucose (70-140) mg/dL POC Glucose 254 H 193 H 196 H (74-100) mg/dL Lactic Acid (0.4-2.0) mmol/L Calcium (8.7-10.3) mg/dL C-Reactive Protein (0.0-0.9) mg/dL Vancomycin Trough (18.0-26.0) ug/mL 08/06/20 08/06/20 08/06/20 Range/Units 07:14 07:14 07:14 WBC 5.64 (5.00-10.00) 10^3/uL RBC 4.05 L (4.50-6.00) 10^6/uL Hgb 11.6 L (13.0-17.0) g/dL Hct 33.8 L (40.0-52.0) % MCV 83.5 (82.0-92.0) fL MCH 28.6 (27.0-31.0) pg MCHC 34.3 (32.0-36.0) g/dL RDW 15.8 H (11.5-14.5) % Plt Count 85 L (150-400) 10^3/uL MPV 11.8 H (7.4-10.4) fL Immature Gran % (Auto) 0.5 (0.0-5.0) % Neut % (Auto) 86.9 H (50.0-70.0) % Lymph % (Auto) 4.6 L (20.0-40.0) % [place] % (Auto) 8.0 (2.0-8.0) % Eos % (Auto) 0.0 L (1.0-3.0) % Baso % (Auto) 0.0 (0.0-1.0) % Neut # (Auto) 4.90 (2.50-7.00) 10^3/uL Lymph # (Auto) 0.26 L (1.00-4.00) 10^3/uL [place] # (Auto) 0.45 (0.10-0.80) 10^3/uL Eos # (Auto) 0.00 L (0.10-0.30) 10^3/uL Baso # (Auto) 0.00 (0.00-0.10) 10^3/uL Immature Gran # (Auto) 0.03 (0.00-0.50) 10^3/uL Clumped Platelets Sodium 132 L (136-145) mmol/L Potassium 3.8 (3.5-5.1) mmol/L Chloride 98 (98-107) mmol/L Carbon Dioxide 24.6 (21.0-32.0) mmol/L Anion Gap 13.2 (5-15) mmol/L BUN 17 (7-18) mg/dL Creatinine 1.18 H (0.51-1.17) mg/dL Est Cr Clr Drug Dosing 66.68 mL/min Estimated GFR (MDRD) > 60 mL/min Glucose 165 H (70-140) mg/dL POC Glucose (74-100) mg/dL Lactic Acid 0.9 (0.4-2.0) mmol/L Calcium 8.1 L (8.7-10.3) mg/dL C-Reactive Protein 24.9 H (0.0-0.9) mg/dL Vancomycin Trough (18.0-26.0) ug/mL 08/06/20 08/06/20 Range/Units 08:05 09:03 WBC (5.00-10.00) 10^3/uL RBC (4.50-6.00) 10^6/uL Hgb (13.0-17.0) g/dL Hct (40.0-52.0) % MCV (82.0-92.0) fL MCH (27.0-31.0) pg MCHC (32.0-36.0) g/dL RDW (11.5-14.5) % Plt Count (150-400) 10^3/uL MPV (7.4-10.4) fL Immature Gran % (Auto) (0.0-5.0) % Neut % (Auto) (50.0-70.0) % Lymph % (Auto) (20.0-40.0) % [place] % (Auto) (2.0-8.0) % Eos % (Auto) (1.0-3.0) % Baso % (Auto) (0.0-1.0) % Neut # (Auto) (2.50-7.00) 10^3/uL Lymph # (Auto) (1.00-4.00) 10^3/uL [place] # (Auto) (0.10-0.80) 10^3/uL Eos # (Auto) (0.10-0.30) 10^3/uL Baso # (Auto) (0.00-0.10) 10^3/uL Immature Gran # (Auto) (0.00-0.50) 10^3/uL Clumped Platelets Sodium (136-145) mmol/L Potassium (3.5-5.1) mmol/L Chloride (98-107) mmol/L Carbon Dioxide (21.0-32.0) mmol/L Anion Gap (5-15) mmol/L BUN (7-18) mg/dL Creatinine (0.51-1.17) mg/dL Est Cr Clr Drug Dosing mL/min Estimated GFR (MDRD) mL/min Glucose (70-140) mg/dL POC Glucose 167 H (74-100) mg/dL Lactic Acid (0.4-2.0) mmol/L Calcium (8.7-10.3) mg/dL C-Reactive Protein (0.0-0.9) mg/dL Vancomycin Trough 15.2 L (18.0-26.0) ug/mL Alpesh Results Last 24 Hours: Microbiology 08/04/20 19:50 Aerobic Blood Culture - Preliminary Blood - Arm, Right NO GROWTH AFTER 1 DAY Anaerobic Blood Culture - Preliminary NO GROWTH AFTER 1 DAY 08/04/20 19:35 Aerobic Blood Culture - Preliminary Blood - Arm, Left NO GROWTH AFTER 1 DAY Anaerobic Blood Culture - Preliminary NO GROWTH AFTER 1 DAY Med Orders - Current: Current Medications Acetaminophen (Tylenol) 650 mg PO Q4H PRN PRN Reason: fever Last Admin: 08/06/20 08:13 Dose: 650 mg Documented by: Acyclovir (Zovirax) 400 mg PO BID [facility] Last Admin: 08/05/20 21:43 Dose: 400 mg Documented by: Albuterol (Ventolin Hfa) 0 gm INH Q4H PRN PRN Reason: sob Allopurinol (Zyloprim) 300 mg PO QAM [facility] Last Admin: 08/05/20 12:10 Dose: 300 mg Documented by: Apixaban (Eliquis) 5 mg PO BID [facility] Last Admin: 08/05/20 21:44 Dose: 5 mg Documented by: Ceftriaxone Sodium (Rocephin) 1 gm IVPUSH Q24H [facility] Last Admin: 08/05/20 21:30 Dose: 1 gm Documented by: Cholecalciferol (Vitamin D3) 50 mcg PO BEDTIME [facility] Last Admin: 08/05/20 21:43 Dose: 50 mcg Documented by: Dextrose/Water (Dextrose 50% In Water) 50 ml IV ASDIRECTED PRN PRN Reason: Hypoglycemia Diltiazem HCl (Dilacor Xr) 240 mg PO DAILY@1200 [facility] Last Admin: 08/05/20 12:08 Dose: 240 mg Documented by: Fluticasone Propionate (Flonase) 0 gm NASBOTH BID [facility] Last Admin: 08/05/20 22:02 Dose: 1 spray Documented by: Glucagon (Glucagen) 1 mg IM ASDIRECTED PRN PRN Reason: Hypoglycemia Guaifenesin/Codeine Phosphate (Robitussin Ac) 5 ml PO Q4H PRN PRN Reason: Cough Last Admin: 08/05/20 17:56 Dose: 5 ml Documented by: Vancomycin HCl 1.25 gm/ Sodium (Chloride) 250 mls @ 166.667 mls/hr IV Q12H [facility] Last Admin: 08/05/20 23:17 Dose: 166.667 mls/hr Documented by: Sodium Chloride (Normal Saline) 100 mls @ 100 mls/hr IV ASDIRECTED [facility] Last Admin: 08/05/20 10:44 Dose: 100 mls/hr Documented by: Sodium Chloride (Normal Saline) 100 mls @ 200 mls/hr IV ASDIRECTED [facility] Last Admin: 08/04/20 22:08 Dose: 200 mls/hr Documented by: Azithromycin 250 mg/ Sodium (Chloride) 250 mls @ 250 mls/hr IV Q24H [facility] Last Admin: 08/05/20 21:37 Dose: 250 mls/hr Documented by: Sodium Chloride (Normal Saline) 1,000 mls @ 75 mls/hr IV ASDIRECTED [facility] Last Admin: 08/06/20 08:28 Dose: 125 mls/hr Documented by: Insulin Aspart (Novolog) 0 unit SUBCUT WITHMEALSANDBED [facility]; Protocol Last Admin: 08/06/20 08:07 Dose: 1 units Documented by: Loperamide HCl (Imodium) 2 mg PO Q4H PRN PRN Reason: Diarrhea Losartan Potassium (Cozaar) 100 mg PO BEDTIME [facility] Last Admin: 08/05/20 20:47 Dose: Not Given Documented by: Montelukast Sodium (Singulair) 10 mg PO BEDTIME [facility] Last Admin: 08/05/20 21:43 Dose: 10 mg Documented by: Nitroglycerin (Nitrostat) 0.4 mg SL ASDIRECTED PRN PRN Reason: chest pain Imbruvica 140 Mg * Chemo Med Study Drug 0 mg PO ACBREAKFAST [facility] Last Admin: 08/05/20 15:09 Dose: Not Given Documented by: Venetoclax 100mg Tabs Chemo Med Study Drug* 0 mg PO DAILY@0730 [facility] Last Admin: 08/06/20 08:05 Dose: 200 mg Documented by: Pantoprazole Sodium (Protonix) 40 mg PO ACBREAKFAST [facility] Last Admin: 08/06/20 08:04 Dose: 40 mg Documented by: Rosuvastatin Calcium (Crestor) 40 mg PO BEDTIME [facility] Last Admin: 08/05/20 21:43 Dose: 40 mg Documented by: Sodium Chloride (Saline Flush) 10 ml FLUSH Q8HR PRN PRN Reason: keep vein open Last Admin: 08/05/20 01:05 Dose: 10 ml Documented by: Sodium Chloride ([place] Nasal [place]) 0 ml NASBOTH Q2H PRN PRN Reason: dry nose Vancomycin HCl (Pharmacy To Dose - Vancomycin) 1 dose .XX ASDIRECTED [facility] Discontinued Medications Acetaminophen (Tylenol) 650 mg PO Q6H PRN PRN Reason: fever or pain Last Admin: 08/05/20 17:54 Dose: 650 mg Documented by: Ceftriaxone Sodium (Rocephin) 1 gm IVPUSH ONETIME ONE Stop: 08/04/20 20:57 Last Admin: 08/04/20 21:23 Dose: 1 gm Documented by: Sodium Chloride (Normal Saline) 1,000 mls @ 999 mls/hr IV .BOLUS ONE Stop: 08/04/20 20:07 Last Admin: 08/04/20 19:44 Dose: 999 mls/hr Documented by: Piperacillin Sod/Tazobactam (Sod 3.375 gm/ Sodium Chloride) 100 mls @ 200 mls/hr IV Q6H ONE Stop: 08/04/20 21:18 Last Admin: 08/05/20 00:01 Dose: Not Given Documented by: Azithromycin 500 mg/ Sodium (Chloride) 250 mls @ 250 mls/hr IV ONETIME ONE Stop: 08/04/20 21:55 Last Admin: 08/04/20 21:32 Dose: 250 mls/hr Documented by: Sodium Chloride (Normal Saline) Confirm Administered Dose 100 mls @ as directed .ROUTE .STK-MED ONE Stop: 08/04/20 21:51 Last Admin: 08/04/20 22:01 Dose: Not Given Documented by: Sodium Chloride (Normal Saline) 1,000 mls @ 999 mls/hr IV .BOLUS ONE Stop: 08/05/20 12:47 Last Admin: 08/05/20 12:31 Dose: 999 mls/hr Documented by: Iopamidol (Isovue-370 (76%)) 75 ml IVPUSH ONETIME ONE Stop: 08/04/20 22:07 Last Admin: 08/04/20 22:08 Dose: 75 ml Documented by: Nitroglycerin (Nitrostat) 0.4 mg SL ASDIRECTED [facility] Non-Formulary Medication (Ubidecarenone [Co Q-10]) 200 mg PO BEDTIME [facility] Non-Formulary Medication (Zinc Sulfate [Zinc Sulfate]) 220 mg PO DAILY [facility] Last Admin: 08/05/20 14:02 Dose: Not Given Documented by: - Exam Physical Findings Comments:: GENERAL: Ill-appearing adult sitting up in bed, in no acute distress. HEENT: Normocephalic, atraumatic. Conjunctiva clear. Nares patent without discharge. Mucous membranes moist, posterior pharynx unremarkable. NECK: Supple, no masses. CV: Regular rate and rhythm, no murmurs, rubs, or gallops. 2+ radial pulses. PULMONARY: Normal effort, crackes in bilateral bases, no wheezes or rhonchi; diminished. ABDOMEN: Positive bowel sounds, soft, nontender, nondistended. EXTREMITIES: No edema, cyanosis, or clubbing. MUSCULOSKELETAL: Moves all extremities well. NEUROLOGICAL: No obvious deficits. DERMATOLOGIC: No rashes or suspicious lesions in exposed areas. PSYCHIATRIC: Alert, interactive, appropriate affect. Sepsis Event Note - Evaluation Sepsis Screening Result: No Definite Risk - Focused Exam Vital Signs: Vital Signs Temp Temp Temp Pulse Resp BP Pulse Ox 08/06/20 08:13 38.3 C H 08/06/20 08:12 38.3 C H 08/06/20 07:00 37.9 C 89 22 H 143/78 H 94 L 08/06/20 05:30 37.4 C 24 H 08/06/20 03:45 38.3 C H 90 94 L 08/06/20 03:26 38.3 C H 08/06/20 03:05 90 L 08/06/20 02:56 38.4 C H 08/06/20 02:48 38.4 C H 92 24 H 153/82 H 90 L 08/06/20 01:59 -17.7 C L 08/05/20 23:00 37.8 C 80 20 129/70 94 L 08/05/20 22:18 37.8 C - Problem List Review Problem List Initiated/Reviewed/Updated: Yes - My Orders Last 24 Hours: My Active Orders 08/05/20 09:00 allopurinoL [Zyloprim] 300 mg PO QAM 08/05/20 10:55 Patient Status [ADT] Routine Oxygen Therapy [RC] PRN Up With Assistance [RC] ASDIRECTED VTE/DVT Education [RC] PER UNIT ROUTINE Vital Signs [RC] 03,07,11,15,19,23 Resuscitation Status Routine 08/05/20 10:56 Intake and Output [RC] 1400,2200,0600 08/05/20 11:01 Albuterol [Ventolin HFA] 0 gm INH Q4H PRN Codeine/guaiFENesin [Robitussin AC] 5 ml PO Q4H PRN Fluticasone Propionate [Flonase] 0 gm NASBOTH BID 08/05/20 11:10 RT Post Treatment Assessment [RC] Click to Edit RT Pre-Treatment Assessment [RC] Click to Edit 08/05/20 11:11 Incentive Spirometry [RT Incentive Spirometry] [RC] Q1HWA Sodium Chloride 0.65% [[place] Nasal [place]] 0 ml NASBOTH Q2H PRN 08/05/20 11:12 Communication Order [RC] PRN 08/05/20 11:15 Acyclovir [Zovirax] 400 mg PO BID Apixaban [Eliquis] 5 mg PO BID 08/05/20 11:30 Nitroglycerin [Nitrostat] 0.4 mg SL ASDIRECTED PRN 08/05/20 11:32 Dextrose 50% in Water 50 ml IV ASDIRECTED PRN Glucagon,Human Recombinant [GlucaGen] 1 mg IM ASDIRECTED PRN 08/05/20 11:49 Blood Glucose Check, Bedside [RC] QIDACANDBED 08/05/20 12:00 PROCALCITONIN [REF] Routine Diltiazem [Dilacor XR] 240 mg PO DAILY@1200 Insulin Aspart [NovoLOG] See Protocol SUBCUT WITHMEALSANDBED 08/05/20 13:00 Sodium Chloride 0.9% [Normal Saline] 1,000 ml IV ASDIRECTED 08/05/20 13:53 Consult to Dietary [Consult to Hide Curer] [CONS] Routine 08/05/20 20:59 Acetaminophen [TylenoL] 650 mg PO Q4H PRN 08/05/20 21:00 Cholecalciferol (Vitamin D3) [Vitamin D3] 50 mcg PO BEDTIME Losartan [Cozaar] 100 mg PO BEDTIME Montelukast [Singulair] 10 mg PO BEDTIME Rosuvastatin [Crestor] 40 mg PO BEDTIME cefTRIAXone [Rocephin] 1 gm IVPUSH Q24H 08/05/20 21:30 Azithromycin [Zithromax] 250 mg Sodium Chloride 0.9% [Normal Saline] 250 ml IV Q24H 08/06/20 09:36 Loperamide [Imodium] 2 mg PO Q4H PRN - Plan Plan:: HPI summary: 69 year old male who presented to the ED on 08/04/2020 via private vehicle for shortness of breath, low oxygen saturation and weakness. Patient reports his oxygen saturations were in the 80s at home. COVID positive on 07/16/2020 and did receive BAM infusion and was later hospitalized for COVID pneumonia with acute hypoxic respiratory failure from 07/22/2020-07/26/2020 at which time he received remdisivir and dexamethasone. He had been feeling better up until the evening of 08/03/2020 when he noticed that he was short of breath, coughing with sputum and saturations were in the 80s. ED course: -VS: T102.9, P 99, R 27, BP 147/80, sat initially in the 87% on RA and then increased to 94% on 5L/NC -EKG shows NS tachycardia, rate 107 -CXR completed and reported by ED staff to show bilateral basilar infiltrates -BC done x 2 sets, antibiotics initiated (Vanco, Rocephin and azithromycin) -CT angiogram reveals no PE, bilateral infiltrates have increased since last exam -WBC 7.69, Hgb 13.1, Hct 38.2, Plt 129, Na 131, K 3.6, Cl 96, anion gap 18.6, lactic acid 1.6, BUN 39, creatinine 1.42, CRP 11.9; COVID positive Hospital course: 08/05/2020: No overnight concerns noted by nursing. Patient reports weakness, fatigue, productive cough, decrease in appetite, very dry nose and fever. VS: T 38.3, R 21, P 97, BP 140/81, O2 sat 91-92% on 5L/NC. WBC 6.22, Hgb 12.1, Hct 34.7, Plt 99, Na 129, K 3.6, Cl 95, anion gap 17.6, lactic acid 1.1, BUN 28, creatinine 1.24, CRP 11.9. Patient reports four episodes of diarrhea overnight and is likely volume depleted. 08/06/2020: Last evening patient experienced fever of 39.3C, and increase in BP to 189/86. Patient was given oral Tylenol and given his losartan early as he had missed the previous nights dose. Fever came down approximately a half hour later and BP improved to 148/81. This AM VS 37.9C, P89, R22, BP 143/78 and O2 sat 94%/6L per mask. Patient requested mask due to nasal congestion and inability to breathe through the nose. This has improved. Nursing noted that O2 sat dropped to 90% on 6L/mask overnight while he was sleeping, this has resolved. WBC 5.64, Hgb 11.6, Hct 33.8, Neut 86.9, with lymphopenia. Na improved to 132, K 3.8, Cl 98, BUN 17, creatinine 1.18, GFR >60, lactic 0.9. IVF will be decreased as to not over load him and stressed oral intake. CRP further elevated to 24.9. Vanco trough 15.2. No growth on blood cultures after 24 hours. Patient continues to have oxygen demand, but states mild improvement. Hospitalization problems and plan: # Acute hypoxic respiratory failure - O2 to keep sat greater than 90% - Humidify oxygen, provide saline nasal spray and vaseline for dry nose # Bilateral pneumonia, likely bacterial with fever, elevated CRP; in setting of CLL - Continue vancomycin, pharmacy to dose - Continue azithromycin and ceftriaxone - IS and pulmonary toileting - Acetaminophen for comfort/fever - Albuterol inhaler PRN # Dehydration - Decrease NS to 75mL/hr - Push oral intake # Malnutrition with recent weight loss - Hide Curer consult # DM Type 2 - Blood glucose QAC and HS - Low dose SS insulin aspart # Stage 3a chronic kidney disease - IVF as above # Diarrhea, chronic - Imodium 2mg every four hours PRN Chronic, stable conditions: #Restrictive lung disease; continue albuterol MDI and montelukast #Seasonal allergic rhinitis #[place] coronary artery calcium score greater than 400; has nitro PRN #Mixed hyperlipidemia, continue rosuvastatin, hold CoQ10 for now #Essential hypertension, continue losartan #Atrial fibrillation: continue Eliquis and diltiazem #CLL (chronic lymphocytic leukemia); continue acyclovir, ibrutinib, and venetoclax #Renal mass #Gastroesophageal reflux disease without esophagitis; continue pantoprazole #Tubular adenoma of colon #Sigmoid diverticulosis #Gout, stable #Peripheral polyneuropathy, stable #Primary osteoarthritis of knees, bilateral #Vitamin D deficiency; continue Vitamin D #Elevated PSA #Magnesium metabolism disorder #Hypogonadism male, stable #BMI 29.0-29.9,adult Hospitalization details: # FEN: NS maintenance at 75mL/hr; Na 132, K 3.8, Cl 98; ADA diet with supplements # PPX: on eliquis # Code status: Full code # Emergency contact: Dana will be updated by nursing # Disposition: plan for discharge home after resolution of hypoxia and pneumonia approximately three midnights. Patient could potentially be a candidate for swing bed status once acuity is stable.
[2020-08-06] MEDS: Apixaban 5 MG Tab PO SCH ×2 (10:14→21:07)
[2020-08-06] MEDS: Acyclovir 400 MG Tab PO SCH ×2 (10:14→21:07)
[2020-08-06] MEDS: Allopurinol 100 MG Tab PO SCH (10:14)
[2020-08-06] MEDS: Fluticasone Propionate Nasal Spray 16 GM Bottle NASBOTH SCH ×2 (10:15→21:09)
[2020-08-06] MEDS: Diltiazem 240 MG Cap.ER PO SCH (12:07)
[2020-08-06] MEDS: Acetaminophen 500 MG Tab PO PRN ×2 (14:22→20:30)
[2020-08-06] MEDS: Loperamide 2 MG Cap PO PRN ×2 (14:22→20:29)
[2020-08-06] MEDS: Codeine/guaiFENesin 10-100 MG/5 ML Syrup 5 ML Cup PO PRN (14:23)
[2020-08-06] MEDS ORDERED: Levofloxacin/Dextrose 5%-Water 250 MG in Premix Bag 1 BAG IV SCH ×2 (17:45→18:30)
[2020-08-06] MEDS ORDERED: Levofloxacin/Dextrose 5%-Water 500 MG in Premix Bag 1 BAG IV SCH ×2 (18:00→19:00)
[2020-08-06] MEDS: Cefepime 2 GM Vial IVPUSH SCH (18:31)
[2020-08-06] MEDS: Losartan 50 MG Tab PO SCH (20:29)
[2020-08-06] MEDS: Rosuvastatin 10 MG Tab PO SCH (21:07)
[2020-08-06] MEDS: Montelukast 10 MG Tab PO SCH (21:07)
[2020-08-06] MEDS: Cholecalciferol (Vitamin D3) 25 MCG Tab PO SCH (21:07)
[2020-08-07] MEDS: Cefepime 2 GM Vial IVPUSH SCH ×2 (02:45→09:02)
[2020-08-07] MEDS: Sodium Chloride 0.9% 1,000 ML IV SCH (02:46)
[2020-08-07] MEDS: Acetaminophen 500 MG Tab PO PRN (02:55)
[2020-08-07] MEDS: Codeine/guaiFENesin 10-100 MG/5 ML Syrup 5 ML Cup PO PRN (03:11)
[2020-08-07] MEDS: Pantoprazole 40 MG Tab.CR PO SCH (06:32)
[2020-08-07 07:39] LABS: ANION GAP 10.9 mmol/L (5-15); CHLORIDE,CL 98 mmol/L (98-107); SODIUM,NA 131 mmol/L (136-145)
[2020-08-07] MEDS: Insulin Aspart 100 Units/ML 3 ML Pen SUBCUT SCH (07:48)
[2020-08-07] MEDS: [UNRECOGNIZED DRUG - OTHER] PO SCH (07:50)
[2020-08-07] MEDS: [UNRECOGNIZED DRUG - OTHER] PO SCH (07:50)
[2020-08-07] MEDS: Apixaban 5 MG Tab PO SCH (08:45)
[2020-08-07] MEDS: Acyclovir 400 MG Tab PO SCH (08:45)
[2020-08-07] MEDS: Allopurinol 100 MG Tab PO SCH (08:45)
[2020-08-07] MEDS: Fluticasone Propionate Nasal Spray 16 GM Bottle NASBOTH SCH (08:46)
[2020-08-07 09:55] LABS: PCO2 ARTERIAL,POC 33 mmHg (35-48)
[2020-08-07 11:29] VITALS: BP 157/90; PULSE 98
[2020-08-07] MEDS ORDERED: Levofloxacin/Dextrose 5%-Water 500 MG in Premix Bag 1 BAG IV SCH (19:00)
--- NOTE | 2020-08-08 09:05 | PCM.DCSUM1 ---
Discharge Summary - Hospital Course Diagnosis: Stroke: No - Discharge Data Discharge Date: 08/07/20 Discharge Disposition: DC/Tfer to Acute Hospital 02 Condition: Fair - Referral to Home Health Primary Care Physician: Pedro Ross NP - Patient Summary/Data Consults: Consultations 08/05/20 13:53 Consult to Dietary [Consult to Sales Account Leader] [CONS] Routine - Discharge Plan *PRESCRIPTION DRUG MONITORING PROGRAM REVIEWED*: Not Applicable *COPY OF PRESCRIPTION DRUG MONITORING REPORT IN PATIENT PORSHA: Not Applicable Home Medications: Home Meds Losartan [Cozaar] 100 mg PO BEDTIME 02/03/19 [History] Montelukast [Singulair] 10 mg PO BEDTIME 02/03/19 [History] metFORMIN HCl [Glucophage] 1,000 mg PO BID 02/03/19 [History] Cholecalciferol (Vitamin D3) [Vitamin D3] 2,000 unit PO BEDTIME 05/14/19 [History] Fluticasone Propionate [Flonase] 1 spray NASBOTH BID PRN 05/14/19 [History] Rosuvastatin Calcium [Crestor] 40 mg PO BEDTIME 05/14/19 [History] Ubidecarenone [Co Q-10] 200 mg PO BEDTIME 05/14/19 [History] Albuterol [Ventolin HFA] 1 puff IH DAILY PRN 12/09/19 [History] Pantoprazole Sodium [Protonix] 40 mg PO ACBREAKFAST 12/09/19 [History] Acyclovir [Zovirax] 400 mg PO BID 05/19/20 [History] Ibrutinib [Imbruvica] 140 mg PO ACBREAKFAST 05/19/20 [History] Sulfamethoxazole/Trimethoprim [Sulfamethoxazole-Tmp Ds Tablet] 1 each PO MOWEFR 05/19/20 [History] Apixaban [Eliquis] 5 mg PO BID #60 tablet 05/21/20 [Rx] Allopurinol [Zyloprim] 300 mg PO QAM 07/22/20 [History] Codeine Phosphate/Guaifenesin [Guaiatussin AC Liquid] 5 ml PO Q4H PRN 07/22/20 [History] Diltiazem HCl [Diltiazem 24Hr Cd] 240 mg PO DAILY@1200 07/22/20 [History] Venetoclax [Venclexta] 200 mg PO QAM 07/22/20 [History] Zinc Sulfate 220 mg PO DAILY 07/22/20 [History] Nitroglycerin 0.4 mg SL ASDIRECTED #10 tab.subl 07/26/20 [Rx] Insulin Aspart [NovoLOG] 0 unit SQ WITHMEALSANDBED 08/04/20 [History] Referrals: Pedro Ross, [employer] [Primary Care Provider] - - Discharge Summary/Plan Comment DC Time >30 min.: Yes Discharge Summary/Plan Comment: Final diagnosis --Acute hypoxic respiratory failure --Bilateral pneumonia, likely bacterial with fever, elevated CRP; in setting of CLL History summary Mr Bradford is a 69 year old male who was transferred to a higher level tertiary care center due to worsening respiratory compromise likely related to post COVID-19 sequela/pneumonia. He had presented to the [facility] ED on 08/04/2020 via private vehicle for shortness of breath, low oxygen saturation and weakness. He reported his oxygen saturations were in the 80s at home. COVID positive on 07/16/2020 and did receive BAM infusion and was later hospitalized for COVID pneumonia with acute hypoxic respiratory failure from 07/22/2020-07/26/2020 at which time he received remdisivir and dexamethasone. He had been feeling better up until the evening of 08/03/2020 when he noticed that he was short of breath, coughing with sputum and saturations were in the 80s. While in ED: -VS: T102.9, P 99, R 27, BP 147/80, sat initially in the 87% on RA and then increased to 94% on 5L/NC -EKG shows NS tachycardia, rate 107 -CXR completed and reported by ED staff to show bilateral basilar infiltrates -BC done x 2 sets, antibiotics initiated (Vanco, Rocephin and azithromycin) -CT angiogram revealed no PE, bilateral infiltrates have increased since last exam -WBC 7.69, Hgb 13.1, Hct 38.2, Plt 129, Na 131, K 3.6, Cl 96, anion gap 18.6, lactic acid 1.6, BUN 39, creatinine 1.42, CRP 11.9; COVID positive Hospital course: 08/05/2020: No overnight concerns noted by nursing. Patient reports weakness, fatigue, productive cough, decrease in appetite, very dry nose and fever. VS: T 38.3, R 21, P 97, BP 140/81, O2 sat 91-92% on 5L/NC. WBC 6.22, Hgb 12.1, Hct 34.7, Plt 99, Na 129, K 3.6, Cl 95, anion gap 17.6, lactic acid 1.1, BUN 28, creatinine 1.24, CRP 11.9. Patient reports four episodes of diarrhea overnight and is likely volume depleted. 08/06/2020: Last evening patient experienced fever of 39.3C, and increase in BP to 189/86. Patient was given oral Tylenol and given his losartan early as he had missed the previous nights dose. Fever came down approximately a half hour later and BP improved to 148/81. This AM VS 37.9C, P89, R22, BP 143/78 and O2 sat 94%/6L per mask. Patient requested mask due to nasal congestion and inab ility to breathe through the nose. This has improved. Nursing noted that O2 sat dropped to 90% on 6L/mask overnight while he was sleeping, this has resolved. WBC 5.64, Hgb 11.6, Hct 33.8, Neut 86.9, with lymphopenia. Na improved to 132, K 3.8, Cl 98, BUN 17, creatinine 1.18, GFR >60, lactic 0.9. IVF will be decreased as to not over load him and stressed oral intake. CRP further elevated to 24.9. Vanco trough 15.2. No growth on blood cultures after 24 hours. Patient continues to have oxygen demand, but states mild improvement. 08/07/2020; T-max during the night was 102.4. On rounds patient quite weak, on 8 L mask with the slightest movement oxygen saturations decreased to 70-80%. Does not feel well, and had increased work of breathing and increased respiratory rate. Some abd distention. Potassium slightly low at 3.3. Patient with significant pulmonary crackles noted with increased work of breathing. ABG demonstrated pH 7.4, PCO2 33, PO2 63. Biotics continued, cefepime was started this this evening. Disposition --Transfer to [facility] to ICU via ACLS --Saline Lock IV --Family at bedside in full agreement - General Info Functional Status: Reports: Pain Controlled, Tolerating Diet, New Symptoms (shortness of breath) - Review of Systems General: Reports: Fever, Weakness, Fatigue. Denies: Chills, Night Sweats HEENT: Reports: No Symptoms Pulmonary: Reports: Shortness of Breath, Cough. Denies: Sputum, Hemoptysis, Wheezing Cardiovascular: Reports: Dyspnea on Exertion Gastrointestinal: Reports: Decreased Appetite. Denies: Nausea Genitourinary: Reports: No Symptoms Musculoskeletal: Reports: No Symptoms Skin: Reports: No Symptoms Neurological: Reports: Weakness. Denies: Confusion - Patient Data Vitals - Most Recent: Last Vital Signs Temp 100 F 08/07/20 10:33 Pulse 98 08/07/20 10:33 Resp 32 H 08/07/20 10:33 BP 157/90 H 08/07/20 10:33 Pulse Ox 93 L 08/07/20 10:33 Weight - Most Recent: 196 lb 3 oz Lab Results - Last 24 hrs: Laboratory Results - last 24 hr 08/07/20 Range/Units 09:45 POC ABG pH 7.4 (7.35-7.45) pH POC ABG pCO2 33 L (35-48) mmHg POC ABG pO2 63 L (83-108) mmHg POC ABG HCO3 21 (21-28) mmol/L ABG O2 Sat (Calculated) 92.3 L (94-98) % POC ABG Base Excess -4 L (-2-3) mmol/L JULITO Results - Last 24 hrs: Microbiology 08/04/20 19:50 Aerobic Blood Culture - Preliminary Blood - Arm, Right NO GROWTH AFTER 3 DAYS Anaerobic Blood Culture - Preliminary NO GROWTH AFTER 3 DAYS 08/04/20 19:35 Aerobic Blood Culture - Preliminary Blood - Arm, Left NO GROWTH AFTER 3 DAYS Anaerobic Blood Culture - Preliminary NO GROWTH AFTER 3 DAYS Med Orders - Current: Current Medications Discontinued Medications Acetaminophen (Tylenol) 650 mg PO Q6H PRN PRN Reason: fever or pain Last Admin: 08/05/20 17:54 Dose: 650 mg Documented by: Acetaminophen (Tylenol) 650 mg PO Q4H PRN PRN Reason: fever Last Admin: 08/06/20 08:13 Dose: 650 mg Documented by: Acetaminophen (Tylenol Extra Strength) 1,000 mg PO Q6H PRN PRN Reason: Fever Last Admin: 08/07/20 02:55 Dose: 1,000 mg Documented by: Acyclovir (Zovirax) 400 mg PO BID [facility] Last Admin: 08/07/20 08:45 Dose: 400 mg Documented by: Albuterol (Ventolin Hfa) 0 gm INH Q4H PRN PRN Reason: sob Allopurinol (Zyloprim) 300 mg PO QAM [facility] Last Admin: 08/07/20 08:45 Dose: 300 mg Documented by: Apixaban (Eliquis) 5 mg PO BID [facility] Last Admin: 08/07/20 08:45 Dose: 5 mg Documented by: Cefepime HCl (Maxipime) 2 gm IVPUSH Q8H [facility] Last Admin: 08/07/20 09:02 Dose: 2 gm Documented by: Ceftriaxone Sodium (Rocephin) 1 gm IVPUSH ONETIME ONE Stop: 08/04/20 20:57 Last Admin: 08/04/20 21:23 Dose: 1 gm Documented by: Ceftriaxone Sodium (Rocephin) 1 gm IVPUSH Q24H [facility] Last Admin: 08/05/20 21:30 Dose: 1 gm Documented by: Cholecalciferol (Vitamin D3) 50 mcg PO BEDTIME [facility] Last Admin: 08/06/20 21:07 Dose: 50 mcg Documented by: Dextrose/Water (Dextrose 50% In Water) 50 ml IV ASDIRECTED PRN PRN Reason: Hypoglycemia Diltiazem HCl (Dilacor Xr) 240 mg PO DAILY@1200 [facility] Last Admin: 08/06/20 12:07 Dose: 240 mg Documented by: Fluticasone Propionate (Flonase) 0 gm NASBOTH BID [facility] Last Admin: 08/07/20 08:46 Dose: 2 spray Documented by: Glucagon (Glucagen) 1 mg IM ASDIRECTED PRN PRN Reason: Hypoglycemia Guaifenesin/Codeine Phosphate (Robitussin Ac) 5 ml PO Q4H PRN PRN Reason: Cough Last Admin: 08/07/20 03:11 Dose: 5 ml Documented by: Sodium Chloride (Normal Saline) 1,000 mls @ 999 mls/hr IV .BOLUS ONE Stop: 08/04/20 20:07 Last Admin: 08/04/20 19:44 Dose: 999 mls/hr Documented by: Piperacillin Sod/Tazobactam (Sod 3.375 gm/ Sodium Chloride) 100 mls @ 200 mls/hr IV Q6H ONE Stop: 08/04/20 21:18 Last Admin: 08/05/20 00:01 Dose: Not Given Documented by: Azithromycin 500 mg/ Sodium (Chloride) 250 mls @ 250 mls/hr IV ONETIME ONE Stop: 08/04/20 21:55 Last Admin: 08/04/20 21:32 Dose: 250 mls/hr Documented by: Vancomycin HCl 1.25 gm/ Sodium (Chloride) 250 mls @ 166.667 mls/hr IV Q12H [facility] Last Admin: 08/07/20 09:08 Dose: 166.667 mls/hr Documented by: Sodium Chloride (Normal Saline) Confirm Administered Dose 100 mls @ as directed .ROUTE .STK-MED ONE Stop: 08/04/20 21:51 Last Admin: 08/04/20 22:01 Dose: Not Given Documented by: Sodium Chloride (Normal Saline) 100 mls @ 100 mls/hr IV ASDIRECTED [facility] Last Admin: 08/05/20 10:44 Dose: 100 mls/hr Documented by: Sodium Chloride (Normal Saline) 100 mls @ 200 mls/hr IV ASDIRECTED [facility] Last Admin: 08/04/20 22:08 Dose: 200 mls/hr Documented by: Azithromycin 250 mg/ Sodium (Chloride) 250 mls @ 250 mls/hr IV Q24H [facility] Last Admin: 08/05/20 21:37 Dose: 250 mls/hr Documented by: Sodium Chloride (Normal Saline) 1,000 mls @ 999 mls/hr IV .BOLUS ONE Stop: 08/05/20 12:47 Last Admin: 08/05/20 12:31 Dose: 999 mls/hr Documented by: Sodium Chloride (Normal Saline) 1,000 mls @ 75 mls/hr IV ASDIRECTED [facility] Last Admin: 08/07/20 02:46 Dose: 75 mls/hr Documented by: Levofloxacin/Dextrose 250 mg/ (Premix) 50 mls @ 50 mls/hr IV Q24H [facility] Levofloxacin/Dextrose 500 mg/ (Premix) 100 mls @ 100 mls/hr IV Q24H [facility] Last Admin: 08/06/20 18:35 Dose: 100 mls/hr Documented by: Levofloxacin/Dextrose 250 mg/ (Premix) 50 mls @ 50 mls/hr IV Q24H [facility] Last Admin: 08/06/20 20:12 Dose: 50 mls/hr Documented by: Levofloxacin/Dextrose 500 mg/ (Premix) 100 mls @ 100 mls/hr IV Q24H [facility] Last Admin: 08/06/20 19:53 Dose: Not Given Documented by: Levofloxacin/Dextrose 500 mg/ (Premix) 100 mls @ 100 mls/hr IV Q24H [facility] Insulin Aspart (Novolog) 0 unit SUBCUT WITHMEALSANDBED [facility]; Protocol Last Admin: 08/07/20 07:48 Dose: 2 units Documented by: Iopamidol (Isovue-370 (76%)) 75 ml IVPUSH ONETIME ONE Stop: 08/04/20 22:07 Last Admin: 08/04/20 22:08 Dose: 75 ml Documented by: Loperamide HCl (Imodium) 2 mg PO Q4H PRN PRN Reason: Diarrhea Last Admin: 08/06/20 20:29 Dose: 2 mg Documented by: Losartan Potassium (Cozaar) 100 mg PO BEDTIME [facility] Last Admin: 08/06/20 20:29 Dose: 100 mg Documented by: Montelukast Sodium (Singulair) 10 mg PO BEDTIME [facility] Last Admin: 08/06/20 21:07 Dose: 10 mg Documented by: Nitroglycerin (Nitrostat) 0.4 mg SL ASDIRECTED [facility] Nitroglycerin (Nitrostat) 0.4 mg SL ASDIRECTED PRN PRN Reason: chest pain Imbruvica 140 Mg * Chemo Med Study Drug 0 mg PO ACBREAKFAST [facility] Last Admin: 08/07/20 07:50 Dose: 140 mg Documented by: Non-Formulary Medication (Ubidecarenone [Co Q-10]) 200 mg PO BEDTIME [facility] Venetoclax 100mg Tabs Chemo Med Study Drug* 0 mg PO DAILY@0730 [facility] Last Admin: 08/07/20 07:50 Dose: 200 mg Documented by: Non-Formulary Medication (Zinc Sulfate [Zinc Sulfate]) 220 mg PO DAILY [facility] Last Admin: 08/05/20 14:02 Dose: Not Given Documented by: Pantoprazole Sodium (Protonix) 40 mg PO ACBREAKFAST [facility] Last Admin: 08/07/20 06:32 Dose: 40 mg Documented by: Rosuvastatin Calcium (Crestor) 40 mg PO BEDTIME [facility] Last Admin: 08/06/20 21:07 Dose: 40 mg Documented by: Sodium Chloride (Saline Flush) 10 ml FLUSH Q8HR PRN PRN Reason: keep vein open Last Admin: 08/05/20 01:05 Dose: 10 ml Documented by: Sodium Chloride ([place] Nasal [place]) 0 ml NASBOTH Q2H PRN PRN Reason: dry nose Vancomycin HCl (Pharmacy To Dose - Vancomycin) 1 dose .XX ASDIRECTED E[facility]U - Exam Quality Assessment: Reports: Supplemental Oxygen (8 L simple facemask) General: Reports: Alert, Oriented, Moderate Distress Neck: Reports: No JVD Lungs: Reports: Crackles, Rhonchi. Denies: Wheezing Cardiovascular: Reports: Regular Rate, Regular Rhythm GI/Abdominal Exam: Distended (Male) Exam: Deferred Back Exam: Denies: CVA Tenderness (L), CVA Tenderness (R) Extremities: No Pedal Edema Skin: Reports: Warm, Dry, Intact Psy/Mental Status: Reports: Alert, Labile Mood
== END 2020-08-07 11:15 | DRG 177 ==
LOC: KA.ED 18:34 → KA.MS 21:07
PROVIDERS: ADMIT Nurse Practitioner Family; ATTEND Family Medicine
DX: J18.9 Pneumonia, unspecified organism (principal); U07.1 COVID-19; R09.02 Hypoxemia; J15.9 Unspecified bacterial pneumonia; J96.01 Acute respiratory failure with hypoxia; C91.10 Chronic lymphocytic leukemia of B-cell type not having achieved remission; E46 Unspecified protein-calorie malnutrition; I10 Essential (primary) hypertension; H91.90 Unspecified hearing loss, unspecified ear; H54.7 Unspecified visual loss; E78.00 Pure hypercholesterolemia, unspecified; K21.9 Gastro-esophageal reflux disease without esophagitis; K57.90 Diverticulosis of intestine, part unspecified, without perforation or abscess without bleeding; N18.31 Chronic kidney disease, stage 3a; M10.9 Gout, unspecified; M19.90 Unspecified osteoarthritis, unspecified site; E11.42 Type 2 diabetes mellitus with diabetic polyneuropathy; E55.9 Vitamin D deficiency, unspecified; E83.40 Disorders of magnesium metabolism, unspecified; E86.0 Dehydration; E11.22 Type 2 diabetes mellitus with diabetic chronic kidney disease; J30.2 Other seasonal allergic rhinitis; E78.2 Mixed hyperlipidemia; I48.91 Unspecified atrial fibrillation; Z96.653 Presence of artificial knee joint, bilateral; Z68.29 Body mass index [BMI] 29.0-29.9, adult; Z79.899 Other long term (current) drug therapy; Z79.4 Long term (current) use of insulin; Z79.01 Long term (current) use of anticoagulants; Z90.89 Acquired absence of other organs; Z87.891 Personal history of nicotine dependence
CPT/HCPCS: 36415; 36600; 71046; 71275; 80048; 80053; 80202; 82803; 82962; 83605; 84145; 85025; 86140; 87040; 93005; 99284; 99285-25; A9270-GY; J0456; J0692; J0696; J1815-GY; J1956; J3370; J7030; J7050; Q9967; U0002

== ENCOUNTER 2020-08-17 11:31 | Observation (INO) | payer MEDICARE, BC ==
[2020-08-17] MEDS: Sodium Chloride 0.9% 1,000 ML IV SCH ×2 (14:42→23:51)
[2020-08-17] MEDS ORDERED: Codeine/guaiFENesin 10-100 MG/5 ML Syrup 5 ML Cup PO PRN (17:24)
[2020-08-17] MEDS ORDERED: Albuterol 8 GM Inhaler INH PRN ×2 (17:24→20:04)
[2020-08-17] MEDS ORDERED: Acetaminophen 325 MG Tab PO PRN (17:24)
[2020-08-17] MEDS ORDERED: Prochlorperazine 5 MG Tab PO PRN (17:24)
[2020-08-17] MEDS ORDERED: 50% Dextrose in Water 50 ML Syringe IV PRN (17:30)
[2020-08-17] MEDS ORDERED: Glucagon,Human Recombinant 1 MG Vial IM PRN (17:30)
[2020-08-17] MEDS ORDERED: Nitroglycerin 0.4 MG Tab.SL SL PRN (17:30)
[2020-08-17] MEDS: Insulin Aspart 100 Units/ML 3 ML Pen SUBCUT SCH ×2 (18:12→21:10)
[2020-08-17] MEDS: Melatonin 3 MG Tab PO SCH (20:53)
[2020-08-17] MEDS: Cholecalciferol (Vitamin D3) 25 MCG Tab PO SCH (20:54)
[2020-08-17] MEDS: Losartan 50 MG Tab PO SCH (20:54)
[2020-08-17] MEDS: Rosuvastatin 10 MG Tab PO SCH (20:54)
[2020-08-17] MEDS: Montelukast 10 MG Tab PO SCH (20:56)
[2020-08-17] MEDS: Acyclovir 400 MG Tab PO SCH (20:57)
[2020-08-17] MEDS: Apixaban 5 MG Tab PO SCH (20:57)
[2020-08-18] MEDS: Pantoprazole 40 MG Tab.CR PO SCH (07:23)
[2020-08-18] MEDS: Insulin Aspart 100 Units/ML 3 ML Pen SUBCUT SCH ×4 (07:24→22:45)
[2020-08-18] MEDS: Apixaban 5 MG Tab PO SCH ×2 (08:14→22:43)
[2020-08-18] MEDS: Acyclovir 400 MG Tab PO SCH ×2 (08:14→22:40)
[2020-08-18] MEDS: predniSONE 10 MG Tab PO SCH (08:14)
[2020-08-18] MEDS: Allopurinol 100 MG Tab PO SCH (08:14)
[2020-08-18] MEDS: Multivitamins with Minerals/Iron/Folic Acid/Lycopene Tab PO SCH (08:15)
[2020-08-18 08:24] LABS: ANION GAP 12.8 mmol/L (5-15); CHLORIDE,CL 100 mmol/L (98-107); SODIUM,NA 134 mmol/L (136-145)
[2020-08-18 08:34] LABS: HEMOGLOBIN A1C 8.6 % (4.3-5.7)
[2020-08-18] MEDS ORDERED: Non-Formulary Medication 1 Each (Ubidecarenone [Co Q-10] 200 MG) PO SCH (09:00)
[2020-08-18] MEDS: Sodium Chloride 0.9% 1,000 ML IV SCH ×2 (10:17→13:33)
[2020-08-18] MEDS ORDERED: Dextrose 5%-0.45% NaCl 1,000 ML IV SCH (10:45)
[2020-08-18] MEDS ORDERED: Sodium Chloride 0.9% 1,000 ML IV ONE (10:46)
[2020-08-18] MEDS ORDERED: Diltiazem 240 MG Cap.ER PO SCH (12:00)
--- NOTE | 2020-08-18 14:59 | PCM.PN ---
- General Info Date of Service: 08/18/20 Functional Status: Reports: Tolerating Diet, Urinating - Review of Systems General: Reports: Weakness, Fatigue. Denies: Fever, Chills HEENT: Reports: Other (denies mouth pain). Denies: Headaches Pulmonary: Denies: Shortness of Breath, Cough, Wheezing Cardiovascular: Reports: Dyspnea on Exertion. Denies: Chest Pain, Palpitations, Edema Gastrointestinal: Reports: Decreased Appetite. Denies: Abdominal Pain, Constipation, Diarrhea, Nausea, Vomiting Genitourinary: Reports: No Symptoms Musculoskeletal: Reports: No Symptoms Skin: Reports: No Symptoms Neurological: Reports: No Symptoms Psychiatric: Reports: No Symptoms - Patient Data Vitals - Most Recent: Last Vital Signs Temp 99.1 F 08/18/20 11:00 Pulse 106 H 08/18/20 11:00 Resp 20 08/18/20 11:00 BP 133/83 08/18/20 11:00 Pulse Ox 98 08/18/20 13:21 Weight - Most Recent: 180 lb 12.8 oz I&O - Last 24 Hours: Intake & Output 08/17/20 08/18/20 08/18/20 22:59 06:59 14:59 Intake Total 7383 321 4427 Output Total 550 500 550 Balance 642 385 750 Lab Results Last 24 Hours: Laboratory Results - last 24 hr 08/17/20 08/17/20 08/18/20 Range/Units 18:10 21:08 07:22 WBC (5.00-10.00) 10^3/uL RBC (4.50-6.00) 10^6/uL Hgb (13.0-17.0) g/dL Hct (40.0-52.0) % MCV (82.0-92.0) fL MCH (27.0-31.0) pg MCHC (32.0-36.0) g/dL RDW (11.5-14.5) % Plt Count (150-400) 10^3/uL MPV (7.4-10.4) fL Immature Gran % (Auto) (0.0-5.0) % Neut % (Auto) (50.0-70.0) % Lymph % (Auto) (20.0-40.0) % [place] % (Auto) (2.0-8.0) % Eos % (Auto) (1.0-3.0) % Baso % (Auto) (0.0-1.0) % Neut # (Auto) (2.50-7.00) 10^3/uL Lymph # (Auto) (1.00-4.00) 10^3/uL [place] # (Auto) (0.10-0.80) 10^3/uL Eos # (Auto) (0.10-0.30) 10^3/uL Baso # (Auto) (0.00-0.10) 10^3/uL Immature Gran # (Auto) (0.00-0.50) 10^3/uL Sodium (136-145) mmol/L Potassium (3.5-5.1) mmol/L Chloride (98-107) mmol/L Carbon Dioxide (21.0-32.0) mmol/L Anion Gap (5-15) mmol/L BUN (7-18) mg/dL Creatinine (0.51-1.17) mg/dL Est Cr Clr Drug Dosing mL/min Estimated GFR (MDRD) mL/min Glucose (70-140) mg/dL POC Glucose 169 H 194 H 99 (74-100) mg/dL Hemoglobin A1c (4.3-5.7) % Calcium (8.7-10.3) mg/dL Total Bilirubin (0.2-1.0) mg/dL AST (15-37) U/L ALT (14-63) U/L Alkaline Phosphatase (46-116) U/L Total Protein (6.4-8.2) g/dL Albumin (3.40-5.00) g/dL 08/18/20 08/18/20 08/18/20 Range/Units 07:57 07:57 11:32 WBC 1.42 L* (5.00-10.00) 10^3/uL RBC 3.97 L (4.50-6.00) 10^6/uL Hgb 11.2 L (13.0-17.0) g/dL Hct 33.4 L (40.0-52.0) % MCV 84.1 (82.0-92.0) fL MCH 28.2 (27.0-31.0) pg MCHC 33.5 (32.0-36.0) g/dL RDW 16.2 H (11.5-14.5) % Plt Count 55 L (150-400) 10^3/uL MPV 10.5 H (7.4-10.4) fL Immature Gran % (Auto) 0.0 (0.0-5.0) % Neut % (Auto) 82.4 H (50.0-70.0) % Lymph % (Auto) 14.8 L (20.0-40.0) % [place] % (Auto) 2.8 (2.0-8.0) % Eos % (Auto) 0.0 L (1.0-3.0) % Baso % (Auto) 0.0 (0.0-1.0) % Neut # (Auto) 1.17 L (2.50-7.00) 10^3/uL Lymph # (Auto) 0.21 L (1.00-4.00) 10^3/uL [place] # (Auto) 0.04 L (0.10-0.80) 10^3/uL Eos # (Auto) 0.00 L (0.10-0.30) 10^3/uL Baso # (Auto) 0.00 (0.00-0.10) 10^3/uL Immature Gran # (Auto) 0.00 (0.00-0.50) 10^3/uL Sodium 134 L (136-145) mmol/L Potassium 4.0 (3.5-5.1) mmol/L Chloride 100 (98-107) mmol/L Carbon Dioxide 25.2 (21.0-32.0) mmol/L Anion Gap 12.8 (5-15) mmol/L BUN 31 H (7-18) mg/dL Creatinine 1.02 (0.51-1.17) mg/dL Est Cr Clr Drug Dosing 77.14 mL/min Estimated GFR (MDRD) > 60 mL/min Glucose 100 (70-140) mg/dL POC Glucose 232 H (74-100) mg/dL Hemoglobin A1c 8.6 H (4.3-5.7) % Calcium 8.6 L (8.7-10.3) mg/dL Total Bilirubin 0.8 (0.2-1.0) mg/dL AST 27 (15-37) U/L ALT 40 (14-63) U/L Alkaline Phosphatase 78 (46-116) U/L Total Protein 5.3 L (6.4-8.2) g/dL Albumin 1.73 L (3.40-5.00) g/dL Med Orders - Current: Current Medications Acetaminophen (Tylenol) 650 mg PO Q4H PRN PRN Reason: pain or fever Acyclovir (Zovirax) 400 mg PO BID [facility] Last Admin: 08/18/20 08:14 Dose: 400 mg Documented by: Albuterol (Ventolin Hfa) 0 gm INH Q6H PRN PRN Reason: sob Allopurinol (Zyloprim) 300 mg PO QAM [facility] Last Admin: 08/18/20 08:14 Dose: 300 mg Documented by: Apixaban (Eliquis) 5 mg PO BID [facility] Last Admin: 08/18/20 08:14 Dose: 5 mg Documented by: Cholecalciferol (Vitamin D3) 50 mcg PO BEDTIME [facility] Last Admin: 08/17/20 20:54 Dose: 50 mcg Documented by: Dextrose/Water (Dextrose 50% In Water) 50 ml IV ASDIRECTED PRN PRN Reason: Hypoglycemia Diltiazem HCl (Dilacor Xr) 240 mg PO DAILY@1200 ESAU Glucagon (Glucagen) 1 mg IM ASDIRECTED PRN PRN Reason: Hypoglycemia Guaifenesin/Codeine Phosphate (Robitussin Ac) 5 ml PO Q4H PRN PRN Reason: Cough Sodium Chloride (Normal Saline) 1,000 mls @ 75 mls/hr IV ASDIRECTED [facility] Last Admin: 08/18/20 13:33 Dose: 75 mls/hr Documented by: Insulin Aspart (Novolog) 0 unit SUBCUT WITHMEALSANDBED [facility]; Protocol Last Admin: 08/18/20 11:34 Dose: 2 unit Documented by: Losartan Potassium (Cozaar) 50 mg PO BEDTIME [facility] Last Admin: 08/17/20 20:54 Dose: 50 mg Documented by: Melatonin (Melatonin) 6 mg PO BEDTIME [facility] Last Admin: 08/17/20 20:53 Dose: 6 mg Documented by: Montelukast Sodium (Singulair) 10 mg PO BEDTIME [facility] Last Admin: 08/17/20 20:56 Dose: 10 mg Documented by: Multivitamins/Minerals (Centrum) 1 tab PO DAILY [facility] Last Admin: 08/18/20 08:15 Dose: 1 tab Documented by: Nitroglycerin (Nitrostat) 0.4 mg SL ASDIRECTED PRN PRN Reason: Chest Pain Pantoprazole Sodium (Protonix) 40 mg PO ACBREAKFAST [facility] Last Admin: 08/18/20 07:23 Dose: 40 mg Documented by: Prednisone (Prednisone) 30 mg PO DAILY [facility] Stop: 08/19/20 09:01 Last Admin: 08/18/20 08:14 Dose: 30 mg Documented by: Prednisone (Prednisone) 20 mg PO DAILY [facility] Stop: 08/26/20 09:01 Prochlorperazine Maleate (Compazine) 10 mg PO QID PRN PRN Reason: nausea or vomiting Rosuvastatin Calcium (Crestor) 40 mg PO BEDTIME [facility] Last Admin: 08/17/20 20:54 Dose: 40 mg Documented by: Trimethoprim/Sulfamethoxazole (Septra Ds) 1 tab PO MoWeFr@0800 [facility] Discontinued Medications Albuterol (Ventolin Hfa) gm INH ASDIRECTED PRN PRN Reason: sob Sodium Chloride (Normal Saline) 1,000 mls @ 100 mls/hr IV ASDIRECTED [facility] Last Infusion: 08/18/20 11:01 Dose: 500 mls/hr Documented by: Dextrose/Sodium Chloride (Dextrose 5%-1/2 Ns) 1,000 mls @ 75 mls/hr IV ASDIRECTED ESAU Sodium Chloride (Normal Saline) 1,000 mls @ 500 mls/hr IV .BOLUS ONE Stop: 08/18/20 12:45 Last Admin: 08/18/20 11:04 Dose: Not Given Documented by: Non-Formulary Medication (Ubidecarenone [Co Q-10]) 200 mg PO DAILY [facility] - Exam Quality Assessment: Supplemental Oxygen, DVT Prophylaxis. No: Urine Catheter General: Alert, Oriented, Cooperative, No Acute Distress HEENT: Other (no signs of thrush on exam; dry mucous membranes persist) Neck: Supple Lungs: Normal Respiratory Effort, Crackles (bilateral bases). No: Wheezing Cardiovascular: Regular Rhythm, Tachycardia. No: Murmurs GI/Abdominal Exam: Normal Bowel Sounds, Soft, Non-Tender Extremities: No Pedal Edema Skin: Warm, Dry, Intact Neurological: No New Focal Deficit, Normal Speech Psy/Mental Status: Alert, Normal Affect, Depressed. No: Anxious Sepsis Event Note - Evaluation Sepsis Screening Result: No Definite Risk - Focused Exam Vital Signs: Vital Signs Temp Pulse Resp BP Pulse Ox Pulse Ox 08/18/20 13:21 98 08/18/20 11:00 99.1 F 106 H 20 133/83 95 08/18/20 07:00 97.8 F 104 H 20 130/86 94 L 08/18/20 03:00 98.4 F 102 H 20 121/80 94 L - Problem List Review Problem List Initiated/Reviewed/Updated: Yes - Plan Plan:: HPI summary: This 69 yoM [facility] [place] [facility] due to increased weakness, fatigue, decreased oral intake, and generally not feeling well. He was recently discharged from [facility] on 08/13/20 after improvement following treatment for pneumonia. Patient was continued on oral prednisone per Jimi upon discharge. Patient was started back on his oral chemo medications on 08/14/20 and reports his status started to decline at that time. Admitting provider Dr Mitchell discussed patient case with Dr Anne who re commended holding oral chemo due to decreased appetite and dehydration. Recent course: Patient initially tested positive for COVID-19 on 07/16/20 and received monoclonal antibody treatment per the [place] infusion team. Patient subsequently developed COVID related atypical pneumonia and was hospitalized at [facility] from 07/22/20 to 07/26/20 for hypoxia. He was readmitted to [facility] on 08/04/20 to 08/07/20 for community acquired pneumonia. Patient was transferred to higher level of care due to increased oxygen demand of 8L with decreased O2 saturations of 70-80%. Hospital course: 08/18/20: T 97.8, HR 104, 130/86, RR 20, 94% on 2.5L NC. Oral intake 500ml, eating 20% of dinner last night and breakfast. WBC 1.42, Neutrophils 82.4%, Hgb 11.2, Plt 55, Na 134, BUN 31, Creatinine 1.02, albumin 1.73. Patient reports he is feeling better today. He states he is determined to get better. Denies need for antidepressant at this time after month long illness. at bedside this morning on rounds. questioning possibility of thrush, none noted on exam. Hospitalization problems and plan: # Acute hypoxic respiratory failure - CXR obtained in clinic on 08/17/20 indicated progressing diffuse hazy opacities greatest in the mid and lower lobes. Suspect atyical pneumonia # Atypical pneumonia - Supplemental O2 to maintain O2 sat of > 90% - Continue oral prednisone taper per discharge instructions from [facility]. - Incentive spirometry # Dehydration - Initially this am IVF NS @ 100ml/hr, 500ml NS bolus given. Oral intake slightly improved with lunch and IVF now NS at 75ml/hr. # Weakness/deconditioning - PT consult # Leukopenia - In COVID precautions - Repeat CBC in am # thrombocytopenia - Repeat CBC in am # hypoalbuminemia # protein calorie deficit - corporate v[employer] & online consult. Recommend increased protein intake. [employer] had recommended tube feedings which are to be discussed as a potential option with patient and tomorrow. # DMT2: A1C on admission 8.6% suspect recent increased due to corticosteroids. 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 Evidence of progression in February 2020 with severe fatigue, lymphadenopathy, and splenomegaly. Continue prophylactic acyclovir, and TMP-SMX. Hold oral chemo agents per Dr Anne. 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 # Paroxysmal atrial fibrillation: Continue diltiazem 240mg daily and apixaban 5mg PO BID. # HTN: Controlled. Continue losartan 50mg PO daily. # GERD: Controlled. Continue pantoprazole 40mg daily. # CKD, stage 3a: Baseline GFR 55. # HLD: Continue rosuvastatin 40mg daily. Holding CoQ10 due to non-formulary. # Vitamin D deficiency: Continue vitamin D 2000iu daily. # Gout: No recent flares. Continue allopurinol 100mg daily. # Seasonal allergies: Controlled. Continue montelukast 10mg HS. Hospitalization details: # FEN: IVF NS 75ml/hr, electrolytes wnl, ADA high protein diet # PPX: Continue home medications of apixaban and pantoprazole # Code status: FULL CODE # Emergency contact: Dana, . # Disposition: Plan for ongoing observation status today with transfer to swing bed tomorrow 08/19/20 for rehabilitation.
[2020-08-18] MEDS: Rosuvastatin 10 MG Tab PO SCH (22:40)
[2020-08-18] MEDS: Cholecalciferol (Vitamin D3) 25 MCG Tab PO SCH (22:40)
[2020-08-18] MEDS: Losartan 50 MG Tab PO SCH (22:40)
[2020-08-18] MEDS: Melatonin 3 MG Tab PO SCH (22:43)
[2020-08-18] MEDS: Montelukast 10 MG Tab PO SCH (22:43)
[2020-08-19] MEDS: Sodium Chloride 0.9% 1,000 ML IV SCH (01:54)
[2020-08-19] MEDS: Acyclovir 400 MG Tab PO SCH (08:02)
[2020-08-19] MEDS: Allopurinol 100 MG Tab PO SCH (08:03)
[2020-08-19] MEDS: Pantoprazole 40 MG Tab.CR PO SCH (08:03)
[2020-08-19] MEDS: predniSONE 10 MG Tab PO SCH (08:04)
[2020-08-19] MEDS: Apixaban 5 MG Tab PO SCH (08:04)
[2020-08-19] MEDS: Insulin Aspart 100 Units/ML 3 ML Pen SUBCUT SCH (08:05)
[2020-08-19] MEDS: Multivitamins with Minerals/Iron/Folic Acid/Lycopene Tab PO SCH (08:05)
[2020-08-19 08:13] LABS: ANION GAP 11.6 mmol/L (5-15); CHLORIDE,CL 99 mmol/L (98-107); SODIUM,NA 133 mmol/L (136-145)
[2020-08-19 10:58] VITALS: BP 152/92; PULSE 119
--- NOTE | 2020-08-19 11:13 | PCM.DCSUM1 ---
Discharge Summary - Hospital Course Free Text/Narrative:: Date of admission: 08/17/20 Date of discharge: 08/19/20 Admission diagnoses: # Recent COVID infection #CLL #Diabetes mellitus Discharge diagnoses: # Acute hypoxic respiratory failure # Atypical pneumonia # Dehydration # Weakness/deconditioning # Leukopenia # thrombocytopenia # hypoalbuminemia # protein calorie deficit # DMT2 # Recent COVID 19 infection (initial diagnosis 07/16/20) Consultations: Dr Perez (heme/onc); Dr Lazaro (hospitalist) Hospital course: HPI summary: This 69 yoM patient was admitted yesterday (08/17/20) from [facility] on observation status due to increased weakness, fatigue, decreased oral intake, and generally not feeling well. He was recently discharged from [facility] on 08/13/20 after improvement following treatment for pneumonia. Patient was continued on oral prednisone per Jimi upon discharge. Patient was started back on his oral chemo medications on 08/14/20 and reports his status started to decline at that time. Admitting provider Dr Mitchell discussed patient case with Dr Anne who recommended holding oral chemo due to decreased appetite and dehydration. Recent course: Patient initially tested positive for COVID-19 on 07/16/20 and received monoclonal antibody treatment per the [facility] infusion team. Patient subsequently developed COVID related atypical pneumonia and was hospitalized at [facility] from 07/22/20 to 07/26/20 for hypoxia. He was readmitted to [facility] on 08/04/20 to 08/07/20 for community acquired pneumonia. Patient was transferred to higher level of care due to increased oxygen demand of 8L with decreased O2 saturations of 70-80%. Hospital course: 08/18/20: T 97.8, HR 104, 130/86, RR 20, 94% on 2.5L NC. Oral intake 500ml, eating 20% of dinner last night and breakfast. WBC 1.42, Neutrophils 82.4%, Hgb 11.2, Plt 55, Na 134, BUN 31, Creatinine 1.02, albumin 1.73. Patient reports he is feeling better today. He states he is determined to get better. Denies need for antidepressant at this time after month long illness. at bedside this morning on rounds. questioning possibility of thrush, none noted on exam. 08/19/20: Patient reported he "was not doing good" this morning upon rounding. He has had increased shortness of breath, increased oxygen demand with minimal activity as supplemental O2 was increased to 6L to assist him with recovery after sitting on the edge of the bed. Patient was requiring 3L yesterday, O2 sat on rounds this am 92% on 4L NC. Tachycardia has increased to 110s today. Facial flushing noted, T 99.5 this morning. WBC decreased further today to 0.94, neutrophil 70.2%, Hgb 11.4, Plt 53, Na 133, BUN 23, Creatinine 0.96, albumin decreased to 1.63, total protein 5.1. Call placed to oncology to discuss patient status and declining lab results, heme/onc conservation officer recommended transferring patient back to [facility] for further management. Discussed initiation of remeron to assist with sleep, anxiety and appetite, patient agreed. Will defer initiation of medication to [facility] provider. Discharge and follow-up recommendations: - Discharge/transfer to [facility] via [facility] ground ambulance - Discharge Data Discharge Date: 08/19/20 Discharge Disposition: DC/Tfer to Acute Hospital 02 Condition: Fair - Referral to Home Health Primary Care Physician: Pedro Ross NP - Patient Summary/Data Consults: Consultations 08/17/20 13:26 Consult to Lsat Instructor [CONS] Routine 08/18/20 15:54 PT Evaluation and Treatment [CONS] Routine - Discharge Plan *PRESCRIPTION DRUG MONITORING PROGRAM REVIEWED*: Not Applicable *COPY OF PRESCRIPTION DRUG MONITORING REPORT IN PATIENT PORSHA: Not Applicable Home Medications: Home Meds Losartan [Cozaar] 50 mg PO BEDTIME 02/03/19 [History] Montelukast [Singulair] 10 mg PO BEDTIME 02/03/19 [History] metFORMIN HCl [Glucophage] 1,000 mg PO BID 02/03/19 [History] Cholecalciferol (Vitamin D3) [Vitamin D3] 2,000 unit PO BEDTIME 05/14/19 [History] Fluticasone Propionate [Flonase] 1 spray NASBOTH BID PRN 05/14/19 [History] Rosuvastatin Calcium [Crestor] 40 mg PO BEDTIME 05/14/19 [History] Albuterol [Ventolin HFA] 2 puff IH ASDIRECTED PRN 12/09/19 [History] Pantoprazole Sodium [Protonix] 40 mg PO ACBREAKFAST 12/09/19 [History] Acyclovir [Zovirax] 400 mg PO BID 05/19/20 [History] Sulfamethoxazole/Trimethoprim [Sulfamethoxazole-Tmp Ds Tablet] 1 each PO MOWEFR 05/19/20 [History] Apixaban [Eliquis] 5 mg PO BID #60 tablet 05/21/20 [Rx] Allopurinol [Zyloprim] 300 mg PO QAM 07/22/20 [History] Codeine Phosphate/Guaifenesin [Guaiatussin AC Liquid] 5 ml PO Q4H PRN 07/22/20 [History] Diltiazem HCl [Diltiazem 24Hr Cd] 240 mg PO DAILY@1200 07/22/20 [History] Nitroglycerin 0.4 mg SL ASDIRECTED #10 tab.subl 07/26/20 [Rx] Insulin Aspart [NovoLOG] 7 unit SQ TIDMEALS 08/04/20 [History] Acetaminophen 650 mg PO Q4H PRN 08/17/20 [History] Betamethasone Dipropionate [Diprosone 0.05% Crm] 0 gm TOP BID 08/17/20 [History] Insulin Glarg,Human.Rec.Analog [Lantus Solostar] 24 unit SUBCUT DAILY 08/17/20 [History] Melatonin 6 mg PO BEDTIME 08/17/20 [History] Patient's Own Medication [Ptom] 1 cap PO DAILY 08/17/20 [History] Patient's Own Medication [Ptom] 200 mg PO DAILY 08/17/20 [History] Prochlorperazine [Compazine] 10 mg PO QID PRN 08/17/20 [History] Ubidecarenone [Co Q-10] 200 mg PO DAILY 08/17/20 [History] predniSONE [Prednisone] 20 mg PO ASDIRECTED 08/17/20 [History] - Discharge Summary/Plan Comment DC Time >30 min.: Yes - General Info Date of Service: 08/19/20 Functional Status: Reports: Pain Controlled, Tolerating Diet, Incentive Spirometry (encouraged) - Review of Systems General: Reports: Weakness, Fatigue, Other (feels warm) Pulmonary: Reports: Shortness of Breath. Denies: Cough, Sputum, Wheezing Cardiovascular: Reports: Dyspnea on Exertion. Denies: Chest Pain, Edema Gastrointestinal: Denies: Nausea Genitourinary: Reports: No Symptoms Neurological: Reports: No Symptoms Psychiatric: Reports: Depression, Anxiety - Patient Data Vitals - Most Recent: Last Vital Signs Temp 98.9 F 08/19/20 07:00 Pulse 103 H 08/19/20 07:00 Resp 24 H 08/19/20 07:00 BP 142/79 H 08/19/20 07:00 Pulse Ox 80 L 08/19/20 07:00 Weight - Most Recent: 180 lb 12.8 oz I&O - Last 24 hours: Intake & Output 08/18/20 08/19/20 08/19/20 22:59 06:59 14:59 Intake Total 1032 853 Output Total 1100 850 Balance -68 3 Lab Results - Last 24 hrs: Laboratory Results - last 24 hr 08/18/20 08/18/20 08/18/20 Range/Units 11:32 17:08 22:38 WBC (5.00-10.00) 10^3/uL RBC (4.50-6.00) 10^6/uL Hgb (13.0-17.0) g/dL Hct (40.0-52.0) % MCV (82.0-92.0) fL MCH (27.0-31.0) pg MCHC (32.0-36.0) g/dL RDW (11.5-14.5) % Plt Count (150-400) 10^3/uL MPV (7.4-10.4) fL Immature Gran % (Auto) (0.0-5.0) % Neut % (Auto) (50.0-70.0) % Lymph % (Auto) (20.0-40.0) % [place] % (Auto) (2.0-8.0) % Eos % (Auto) (1.0-3.0) % Baso % (Auto) (0.0-1.0) % Neut # (Auto) (2.50-7.00) 10^3/uL Lymph # (Auto) (1.00-4.00) 10^3/uL [place] # (Auto) (0.10-0.80) 10^3/uL Eos # (Auto) (0.10-0.30) 10^3/uL Baso # (Auto) (0.00-0.10) 10^3/uL Immature Gran # (Auto) (0.00-0.50) 10^3/uL Sodium (136-145) mmol/L Potassium (3.5-5.1) mmol/L Chloride (98-107) mmol/L Carbon Dioxide (21.0-32.0) mmol/L Anion Gap (5-15) mmol/L BUN (7-18) mg/dL Creatinine (0.51-1.17) mg/dL Est Cr Clr Drug Dosing mL/min Estimated GFR (MDRD) mL/min Glucose (70-140) mg/dL POC Glucose 232 H 265 H 276 H (74-100) mg/dL Calcium (8.7-10.3) mg/dL Total Bilirubin (0.2-1.0) mg/dL AST (15-37) U/L ALT (14-63) U/L Alkaline Phosphatase (46-116) U/L Total Protein (6.4-8.2) g/dL Albumin (3.40-5.00) g/dL 08/19/20 08/19/20 08/19/20 Range/Units 07:45 07:45 08:01 WBC 0.94 L* (5.00-10.00) 10^3/uL RBC 3.94 L (4.50-6.00) 10^6/uL Hgb 11.2 L (13.0-17.0) g/dL Hct 32.7 L (40.0-52.0) % MCV 83.0 (82.0-92.0) fL MCH 28.4 (27.0-31.0) pg MCHC 34.3 (32.0-36.0) g/dL RDW 16.1 H (11.5-14.5) % Plt Count 53 L (150-400) 10^3/uL MPV 12.0 H (7.4-10.4) fL Immature Gran % (Auto) 9.6 H (0.0-5.0) % Neut % (Auto) 70.2 H (50.0-70.0) % Lymph % (Auto) 17.0 L (20.0-40.0) % [place] % (Auto) 3.2 (2.0-8.0) % Eos % (Auto) 0.0 L (1.0-3.0) % Baso % (Auto) 0.0 (0.0-1.0) % Neut # (Auto) 0.66 L (2.50-7.00) 10^3/uL Lymph # (Auto) 0.16 L (1.00-4.00) 10^3/uL [place] # (Auto) 0.03 L (0.10-0.80) 10^3/uL Eos # (Auto) 0.00 L (0.10-0.30) 10^3/uL Baso # (Auto) 0.00 (0.00-0.10) 10^3/uL Immature Gran # (Auto) 0.09 (0.00-0.50) 10^3/uL Sodium 133 L (136-145) mmol/L Potassium 4.2 (3.5-5.1) mmol/L Chloride 99 (98-107) mmol/L Carbon Dioxide 26.6 (21.0-32.0) mmol/L Anion Gap 11.6 (5-15) mmol/L BUN 23 H (7-18) mg/dL Creatinine 0.96 (0.51-1.17) mg/dL Est Cr Clr Drug Dosing 81.96 mL/min Estimated GFR (MDRD) > 60 mL/min Glucose 167 H (70-140) mg/dL POC Glucose 161 H (74-100) mg/dL Calcium 8.4 L (8.7-10.3) mg/dL Total Bilirubin 0.7 (0.2-1.0) mg/dL AST 29 (15-37) U/L ALT 49 (14-63) U/L Alkaline Phosphatase 81 (46-116) U/L Total Protein 5.1 L (6.4-8.2) g/dL Albumin 1.63 L (3.40-5.00) g/dL Med Orders - Current: Current Medications Acetaminophen (Tylenol) 650 mg PO Q4H PRN PRN Reason: pain or fever Acyclovir (Zovirax) 400 mg PO BID [facility] Last Admin: 08/19/20 08:02 Dose: 400 mg Documented by: Albuterol (Ventolin Hfa) 0 gm INH Q6H PRN PRN Reason: sob Allopurinol (Zyloprim) 300 mg PO QAM [facility] Last Admin: 08/19/20 08:03 Dose: 300 mg Documented by: Apixaban (Eliquis) 5 mg PO BID [facility] Last Admin: 08/19/20 08:04 Dose: 5 mg Documented by: Cholecalciferol (Vitamin D3) 50 mcg PO BEDTIME [facility] Last Admin: 08/18/20 22:40 Dose: 50 mcg Documented by: Dextrose/Water (Dextrose 50% In Water) 50 ml IV ASDIRECTED PRN PRN Reason: Hypoglycemia Diltiazem HCl (Dilacor Xr) 240 mg PO DAILY@1200 [facility] Glucagon (Glucagen) 1 mg IM ASDIRECTED PRN PRN Reason: Hypoglycemia Guaifenesin/Codeine Phosphate (Robitussin Ac) 5 ml PO Q4H PRN PRN Reason: Cough Sodium Chloride (Normal Saline) 1,000 mls @ 75 mls/hr IV ASDIRECTED [facility] Last Admin: 08/19/20 01:54 Dose: 75 mls/hr Documented by: Insulin Aspart (Novolog) 0 unit SUBCUT WITHMEALSANDBED [facility]; Protocol Last Admin: 08/19/20 08:05 Dose: 1 unit Documented by: Losartan Potassium (Cozaar) 50 mg PO BEDTIME [facility] Last Admin: 08/18/20 22:40 Dose: 50 mg Documented by: Melatonin (Melatonin) 6 mg PO BEDTIME [facility] Last Admin: 08/18/20 22:43 Dose: 6 mg Documented by: Montelukast Sodium (Singulair) 10 mg PO BEDTIME [facility] Last Admin: 08/18/20 22:43 Dose: 10 mg Documented by: Multivitamins/Minerals (Centrum) 1 tab PO DAILY [facility] Last Admin: 08/19/20 08:05 Dose: 1 tab Documented by: Nitroglycerin (Nitrostat) 0.4 mg SL ASDIRECTED PRN PRN Reason: Chest Pain Pantoprazole Sodium (Protonix) 40 mg PO ACBREAKFAST [facility] Last Admin: 08/19/20 08:03 Dose: 40 mg Documented by: Prednisone (Prednisone) 20 mg PO DAILY [facility] Stop: 08/26/20 09:01 Prochlorperazine Maleate (Compazine) 10 mg PO QID PRN PRN Reason: nausea or vomiting Rosuvastatin Calcium (Crestor) 40 mg PO BEDTIME [facility] Last Admin: 08/18/20 22:40 Dose: 40 mg Documented by: Trimethoprim/Sulfamethoxazole (Septra Ds) 1 tab PO MoWeFr@0800 [facility] Discontinued Medications Albuterol (Ventolin Hfa) gm INH ASDIRECTED PRN PRN Reason: sob Sodium Chloride (Normal Saline) 1,000 mls @ 100 mls/hr IV ASDIRECTED [facility] Last Infusion: 08/18/20 11:01 Dose: 500 mls/hr Documented by: Dextrose/Sodium Chloride (Dextrose 5%-1/2 Ns) 1,000 mls @ 75 mls/hr IV ASDIRECTED [facility] Sodium Chloride (Normal Saline) 1,000 mls @ 500 mls/hr IV .BOLUS ONE Stop: 08/18/20 12:45 Last Admin: 08/18/20 11:04 Dose: Not Given Documented by: Non-Formulary Medication (Ubidecarenone [Co Q-10]) 200 mg PO DAILY [facility] Prednisone (Prednisone) 30 mg PO DAILY [facility] Stop: 08/19/20 09:01 Last Admin: 08/19/20 08:04 Dose: 30 mg Documented by: - Exam Quality Assessment: Reports: Supplemental Oxygen. Denies: Urine Catheter, DVT Prophylaxis General: Reports: Alert, Oriented, Cooperative, Moderate Distress Neck: Reports: Supple Lungs: Reports: Decreased Breath Sounds, Crackles (bilateral bases). Denies: Normal Respiratory Effort (labored), Wheezing Cardiovascular: Reports: Regular Rhythm, Tachycardia. Denies: No Murmurs GI/Abdominal Exam: Normal Bowel Sounds, Soft, Non-Tender (Male) Exam: Deferred Rectal (Males) Exam: Deferred Extremities: No Pedal Edema Skin: Reports: Warm, Dry, Intact, Other (facial flushing) Neurological: Reports: Normal Speech Psy/Mental Status: Reports: Alert, Anxious, Depressed
[2020-08-20] MEDS ORDERED: Sulfamethoxazole/Trimethoprim 800-160 MG Tab PO SCH (08:00)
[2020-08-20] MEDS ORDERED: predniSONE 20 MG Tab PO SCH (09:00)
== END 2020-08-19 11:25 ==
LOC: KA.MS 11:31
PROVIDERS: ADMIT Family Medicine; ATTEND Family Medicine
DX: U07.1 COVID-19 (principal); J96.01 Acute respiratory failure with hypoxia; J12.82 Pneumonia due to coronavirus disease 2019; C91.10 Chronic lymphocytic leukemia of B-cell type not having achieved remission; E78.2 Mixed hyperlipidemia; I12.9 Hypertensive chronic kidney disease with stage 1 through stage 4 chronic kidney disease, or unspecified chronic kidney disease; N18.31 Chronic kidney disease, stage 3a; E11.42 Type 2 diabetes mellitus with diabetic polyneuropathy; E11.22 Type 2 diabetes mellitus with diabetic chronic kidney disease; I48.0 Paroxysmal atrial fibrillation; K21.9 Gastro-esophageal reflux disease without esophagitis; E55.9 Vitamin D deficiency, unspecified; D72.819 Decreased white blood cell count, unspecified; D69.6 Thrombocytopenia, unspecified; E88.09 Other disorders of plasma-protein metabolism, not elsewhere classified; Z79.4 Long term (current) use of insulin; Z79.899 Other long term (current) drug therapy
CPT/HCPCS: 36415; 80053; 82962; 83036; 85025; A9270-GY; G0378; J1815-GY; J7030; J7512; U0002